=== PATIENT | female | born 1985 | race Caucasian/White ===

== ENCOUNTER → 2018-06-10 | Outpatient (CLI) | payer OTHER | END | disposition home or self-care (01) | LOC: C.LABSPEC 17:43 | PROVIDERS: ATTEND Obstetrics & Gynecology | DX: Z34.93 Encounter for supervision of normal pregnancy, unspecified, third trimester (principal); Z3A.00 Weeks of gestation of pregnancy not specified ==

== ENCOUNTER 2018-06-24 04:12 | Inpatient (IN) | payer OTHER ==
[~2018-06-24] VITALS: Ht 160 cm; Wt 74.4 kg
[2018-06-24] MEDS ORDERED: LACTATED RINGER'S 1000ML 1,000 ML IV PRN (04:33)
[2018-06-24] MEDS ORDERED: MISOPROSTOLTAB 50 MCG TAB PO ONE (04:45)
[2018-06-24] MEDS ORDERED: PENICILLIN G POTASSIUM IV 6 MU in DEXTROSE 5% 250ML 250 ML IV ONE (04:45)
[2018-06-24 05:02] LABS: HEMOGLOBIN 11.5 g/dL (12.0-16.0); MEAN CORPUSCULAR HEMOGLOBIN 28.3 pg (25-34); MEAN CORPUSCULAR HGB CONC 32.9 g/dl (32-36); MEAN PLATELET VOLUME 11.5 fL (7.4-10.4); PLATELET COUNT 251 K/uL (130-400); RED CELL DISTRIBUTION WIDTH CV 14.4 % (11.5-14.5); RED CELL DISTRIBUTION WIDTH SD 44.9 fL (36.4-46.3); WHITE BLOOD COUNT 9.91 K/uL (4.8-10.8)
[2018-06-24] MEDS: LACTATED RINGER'S 1000ML 1,000 ML IV SCH ×2 (05:13→12:18)
[2018-06-24] MEDS ORDERED: PRENTAB26 PO (05:31)
[2018-06-24 05:38] VITALS: Ht 160 cm; Wt 74.4 kg
[2018-06-24] MEDS: PENICILLIN G POTASSIUM IV 3 MU in DEXTROSE 5% 100ML 100 ML IV PRN ×3 (09:23→17:37)
[2018-06-24] MEDS ORDERED: BUPIVACAINE 0.25% 30 ML VIAL ONE (11:24)
[2018-06-24] MEDS ORDERED: EpHEDrine SULFATE INJ 50 MG/ML AMP ONE (11:25)
[2018-06-24] MEDS ORDERED: FENTANYL CITRATE INJ 50 MCG/1 ML 2 ML VIAL ONE (11:25)
[2018-06-24] MEDS ORDERED: FENTANYL 2MCG/ML ROPIV 1.25MG/ML 100ML BAG ONE (11:26)
[2018-06-24] MEDS ORDERED: LACTATED RINGER'S 1000ML 500 ML IV PRN ×2 (12:12→14:01)
[2018-06-24] MEDS ORDERED: FENTANYL 2MCG/ML ROPIV 1.25MG/ML 100ML BAG EPI PRN (12:15)
[2018-06-24] MEDS ORDERED: NALOXONE HCL INJ 0.4 MG/1 ML VIAL/CARP IV PRN (12:15)
[2018-06-24] MEDS ORDERED: EpHEDrine SULFATE INJ 50 MG/ML AMP IV PRN (12:15)
[2018-06-24] MEDS ORDERED: OXYTOCIN 30 UNITS/500ML NSS IV PRN ×2 (14:15→18:45)
[2018-06-24] MEDS ORDERED: SUPERCREAM 0.870 % 15GM JAR EXT PRN (18:45)
[2018-06-24] MEDS ORDERED: MEASLES, MUMPS & RUBELLA VIRUS VIAL SQ. ONE (18:45)
[2018-06-24] MEDS ORDERED: ACETAMINOPHEN 325 MG TAB PO PRN (18:45)
[2018-06-24] MEDS ORDERED: DIPHTHERIA/TETANUS/PERTUSSIS 0.5 ML SYR/VIAL IM. ONE (18:45)
[2018-06-24] MEDS ORDERED: BENZOCAINE 20% AER SPR 82.5 GM CAN EXT PRN (18:45)
[2018-06-24] MEDS ORDERED: HYDROCORTISONE ACETATE 25 MG SUPP PR PRN (18:45)
[2018-06-24] MEDS ORDERED: LANOLIN OINT EXT PRN (18:45)
[2018-06-24] MEDS ORDERED: OXYCODONE/ACETAMINOPHEN 5-325 TAB PO PRN (18:45)
[2018-06-24] MEDS ORDERED: VARICELLA VIRUS VACCINE LIVE 1 VIAL SQ. ONE (18:45)
--- NOTE | 2018-06-24 19:32 | Anesthesia Procedure Note ---
Anesthesia Epidural Removal Nt Date & Time Jun 24, 2018 at 19:32 Vital Signs Pain Intensity: 0.0 Notes Mental Status: alert / awake / arousable, participated in evaluation Nausea / Vomiting: adequately controlled Pain: adequately controlled Airway Patency, RR, SpO2: stable & adequate BP & HR: stable & adequate Hydration State: stable & adequate Neuraxial Anesthesia: was administered Anesthetic Complications: no major complications apparent, pt satisfied with anesthetic care Epidural: removed without complications, with tip intact
[2018-06-24] MEDS: DOCUSATE SODIUM 100 MG CAP PO SCH (20:00)
--- NOTE | 2018-06-24 21:29 | DELIVERY SUMMARY ---
DATE OF OPERATION: 06/24/2018 The patient is a 33-year-old 2 para 0-0-1 white female who presented at 38 weeks with ruptured membranes and no labor. She received 50 mcg Cytotec orally. She then started to have regular contractions. She requested epidural analgesia and Pitocin augmentation was begun after the epidural was effective as her ctns had begun to space out. She progressed to full dilation and pushed effectively for delivery of a viable female . The mouth and nasopharynx were suctioned after delivery; loose nuchal cord was reduced after the head was delivered. The rest of the infant delivered without complications and was placed on mother's abdomen for further attention drawing. There was spontaneous crying and the infant was moving all 4 limbs at that time. After 30-second delay, the cord was clamped and cut. The placenta was then expressed intact with a 3-vessel cord. A first degree left labial laceration was no bleeding and therefore not repaired. The rest of the perineum was intact. Bleeding was minimal at the end of the case and it was controlled with dilute Pitocin. Mother and were doing well after delivery. I attest to the content of the Intraoperative Record and any orders documented therein. Any exceptions are noted below. MTDD
[2018-06-24 21:35] VITALS: BP 119/74; PULSE 74; TEMP 36.9; O2SAT 97
[2018-06-24] MEDS: IBUPROFEN 600 MG TAB PO PRN (21:43)
[2018-06-24 23:05] VITALS: BP 109/67; PULSE 54; TEMP 36.8; O2SAT 98
[2018-06-25 03:10] VITALS: BP 113/74; PULSE 56; TEMP 36.7; O2SAT 98
[2018-06-25 05:52] LABS: HEMATOCRIT 33.6 % (37-47); HEMOGLOBIN 11.1 g/dL (12.0-16.0)
--- NOTE | 2018-06-25 07:05 | Progress Note ---
Subjective Jun 25, 2018. Subjective Comment: conversation w/ patient, physical exam Ambulation: ambulating normally Voiding: no voiding problems Passing Gas: Yes Diet Tolerance: Regular Diet no n/v Lochia: Moderate Feeding Type: Breast Feeding Pain: Improving /10 Review of Systems Constitutional: No fever, No chills, No sweats Respiratory: No cough, No sputum, No wheezing Cardiac: No chest pain, No palpitations Abdomen: No pain, No nausea, No vomiting, No diarrhea Female : No dysuria Objective Vital Signs Date Time Temp Pulse Resp B/P (MAP) Pulse Ox O2 Delivery O2 Flow Rate FiO2 06/25/18 03:10 36.7 56 16 113/74 (87) 98 Room Air 06/24/18 23:05 36.8 54 16 109/67 (81) 98 Room Air 06/24/18 21:35 36.9 74 18 119/74 (89) 97 Room Air 06/24/18 21:35 97 Room Air Physical Exam General Appearance: WELL-APPEARING, NO APPARENT DISTRESS Respiratory/Chest: chest non-tender, normal breath sounds Cardiovascular: regular rate, rhythm Abdomen: normal bowel sounds Fundus: Firm, Relation to Umbilicus (below) Extremities: normal range of motion, no calf tenderness Laboratory Results Last 24 Hours Test 06/25/18 05:37 Hemoglobin 11.1 g/dL Hematocrit 33.6 % Assessment and Plan Day#: 1 Continue Routine Care: Resident Physician Supervision Note: I interviewed and examined the patient. Discussed with Dr. Lemus and agree with findings and plan as documented in the note. Any exceptions or clarifications are listed here: [None] Documented By: Kina Beltran 33 yo PPD1 s/p -AFVSS, Pt doing well resting comfortably -F/U CBC HGB 11.1 from 11.5 on admission appropriate for vaginal delivery no si/ sx of anemia -Plan is to breast feed -Tolerating regular diet, no n/v -Continue to encourage ambulation -Routine care
[2018-06-25] MEDS: IBUPROFEN 600 MG TAB PO PRN ×3 (07:21→20:46)
[2018-06-25 07:25] VITALS: BP 118/78; PULSE 54; TEMP 36.4
[2018-06-25] MEDS: FERROUS SULFATE 325 MG TAB PO SCH (07:34)
[2018-06-25] MEDS: DOCUSATE SODIUM 100 MG CAP PO SCH ×2 (07:34→20:45)
[2018-06-25] MEDS: PRENATAL VITAMIN TAB PO SCH (07:34)
[2018-06-25 11:20] VITALS: BP 114/74; PULSE 89; TEMP 36.7
[2018-06-25 15:55] VITALS: BP 125/77; PULSE 58; TEMP 36.6
[2018-06-25] MEDS ORDERED: BISACODYL 5 MG TABEC PO SCH (20:00)
[2018-06-25 23:55] VITALS: BP 124/69; PULSE 58; TEMP 36.6; O2SAT 98; O2SAT 99
[2018-06-26] MEDS: IBUPROFEN 600 MG TAB PO PRN ×2 (04:24→08:37)
[2018-06-26 07:15] VITALS: BP 126/80; PULSE 51; TEMP 36.5
[2018-06-26 07:58] LABS: HEMATOCRIT 33.9 % (37-47); HEMOGLOBIN 11.1 g/dL (12.0-16.0); MEAN CELL VOLUME 87.6 fL (80-100); MEAN CORPUSCULAR HEMOGLOBIN 28.7 pg (25-34); MEAN CORPUSCULAR HGB CONC 32.7 g/dl (32-36); MEAN PLATELET VOLUME 10.9 fL (7.4-10.4); PLATELET COUNT 234 K/uL (130-400); RED CELL DISTRIBUTION WIDTH CV 14.9 % (11.5-14.5); WHITE BLOOD COUNT 10.07 K/uL (4.8-10.8)
[2018-06-26] MEDS: FERROUS SULFATE 325 MG TAB PO SCH (08:13)
[2018-06-26] MEDS: DOCUSATE SODIUM 100 MG CAP PO SCH (08:13)
[2018-06-26] MEDS: PRENATAL VITAMIN TAB PO SCH (08:13)
--- NOTE | 2018-06-26 08:24 | Progress Note ---
Subjective Jun 26, 2018. Subjective conversation w/ patient, physical exam Ambulation: ambulating normally Feeding Type: Breast Feeding Objective Vital Signs Date Time Temp Pulse Resp B/P (MAP) Pulse Ox O2 Delivery O2 Flow Rate FiO2 06/26/18 07:15 36.5 51 18 126/80 (95) Room Air 06/25/18 23:55 36.6 58 18 124/69 (87) 99 Room Air 06/25/18 23:55 98 Room Air 06/25/18 20:30 Room Air 06/25/18 15:55 36.6 58 16 125/77 (93) Room Air 06/25/18 11:20 36.7 89 16 114/74 (87) Room Air Physical Exam General Appearance: WELL-APPEARING, NO APPARENT DISTRESS Fundus: Firm, Non-Tender Extremities: no calf tenderness Laboratory Results Last 24 Hours Test 06/26/18 07:42 White Blood Count 10.07 K/uL Red Blood Count 3.87 M/uL Hemoglobin 11.1 g/dL Hematocrit 33.9 % Mean Corpuscular Volume 87.6 fL Mean Corpuscular Hemoglobin 28.7 pg Mean Corpuscular Hemoglobin Concent 32.7 g/dl RDW Standard Deviation 47.0 fL RDW Coefficient of Variation 14.9 % Platelet Count 234 K/uL Mean Platelet Volume 10.9 fL Assessment and Plan Post- Day#: 2 Continue Routine Care: - doing well - desires d/c - instructions given - f/u in 6 weeks
--- NOTE | 2018-06-26 08:25 | Discharge Instructions ---
Discharge Instructions Date of Service Jun 26, 2018. Admission Reason for Admission: LABOR Discharge Discharge Diagnosis / Problem: same Discharge Goals Goal(s): Routine recovery after delivery Medications Continue Dispensed Medications: supercream, dermaplast, tucks Activity Recommendations Activity Limitations: as noted below . Instructions / Follow-Up Instructions / Follow-Up ACTIVITY RECOMMENDATIONS: * Gradual return to full activity over the next 2-3 weeks. * No lifting - nothing heavier than baby over the next 2-3 weeks. * Do not engage in vigorous exercise, sexual activity or sports until cleared by your physician. * Do not drive or operate any motorized equipment until cleared by your physician. * You may shower/bathe daily. MEDICATIONS: For discomfort or pain, you may use Acetaminophen (Tylenol), Ibuprofen (Advil), or Naproxen (Aleve) following the package directions. For constipation you may use Colace following the package directions. BREAST CARE: If you are not breast feeding: * Wear a supportive bra 24 hours a day for one to two weeks. * Avoid stimulating your breasts and nipples as much as possible during the first few weeks after delivery. * When taking a shower, have the warm water hit your back, not breasts. * When your breasts feel full, apply ice packs. Usually three to four times a day helps ease the discomfort. * Take a mild pain medication (Tylenol / Motrin) when you are uncomfortable. If breast feeding: * Use breast milk to lubricate nipples. Lansinoh cream may be used for sore nipples. You do not need to remove cream prior to breast feeding. If using a different brand of cream, check the label for directions regarding removal of cream prior to nursing. * Wear a supportive bra. * If having problems with breasts or breast feeding, call a retail consultant or your health care provider. EPISIOTOMY CARE: After delivery, if you have an episiotomy (stitches), the following steps will ease discomfort and aid healing. * For the first 24 hours after delivery, place ice packs next to your episiotomy to help reduce swelling. * After the first 24 hour-period, sitz baths, either portable or in the tub, are suggested. A shower with a shower arm sprayed over the episiotomy may be comforting. * Julianne care should be done after each voiding and bowel movement. Squirt warm water from a plastic bottle over the perineum (region of the body between the anus and urinary opening) and pat dry. * Use Dermoplast to ease discomfort. Shake container. [place] directly over the episiotomy. Place a Tucks on a clean sanitary pad next to your episiotomy. SPECIAL CARE INSTRUCTIONS: When you are discharged from the hospital, it is important for you to follow the instructions listed below: * During the first week at home, you should be able to care for yourself and your baby. In addition, the usual light household activities are encouraged. * Limit your activities to the way you feel. Do not try to clean the house or move furniture. Be sensible. * If you actively engage in sports and have done so up until the time of your delivery, you may resume these activities as soon as you feel able. This may take up to one month or even longer. Use good judgment. * Continue to take your vitamins for at least six weeks after the of your baby. * Your diet need not be limited unless you were on a special diet before your delivery. Breast-feeding mothers need around 2500 calories per day and at least 64-80 ounces of fluid per day (8 to 10 glasses). * You should eat foods from the four major food groups. Crash diets or fad diets are to be avoided. Eating lean meats, fresh fruits and vegetables, low-fat dairy products, high fiber foods and a regular exercise program, will help you get back to your pre- weight without putting your health at risk. * Constipation is sometimes a problem after delivery. Take a mild laxative as needed. If breast feeding, Milk of Magnesia is acceptable to use. You may use a suppository or Fleets enema if no episiotomy. * A daily shower or tub bath is suggested. Be sure to thoroughly and gently dry the perineum. * A bloody vaginal discharge will usually continue until around four weeks post . A small amount of bleeding may continue for as long as six weeks. Vaginal discharge changes from the bright red bleeding after delivery to pink then brownish and finally yellowish-pink before becoming white and disappearing. * Bleeding may increase with activity. Your first period may come in 4-8 weeks. If you are breast feeding, your period may be delayed even longer. * Tull (sex) can begin whenever both you and your partner feel comfortable and do not have any form of genital infection. It is recommended that you wait at least six weeks for internal and external healing to occur. If you have questions, please talk to your health care practitioner. A condom should be used to prevent infection and . * Foreplay, gentle intercourse and lubrication is very important the first several times to prevent pain. A water-based lubricant such as K-Y jelly or Astroglide may be used. * If you have RH negative blood and your baby is RH positive, you will receive RHOGAM by injection prior to discharge. The nurse will give you a card to keep with you that has the date and place that you received RHOGAM after delivery. * During your care, you had a Rubella screen done to check for the presence of rubella antibodies in your blood. If your test was negative, you will receive a Rubella vaccine prior to discharge. This vaccine may cause a fever, soreness at the injection site and flu-like symptoms. If these symptoms persist, notify your health care practitioner. is not advised for one month after a Rubella vaccine. * Verbalizes understanding of car seat law as reviewed with patient nursing. * Car Seat hand-out given and reviewed with patient by nursing. * Shaken baby information reviewed with patient by nursing. Call you doctor if: * Heavy bleeding (saturating several pads an hour) or passing clots the size of your fist. * A fever >101 degrees F (38.3 degrees C) on two occasions four hours apart and /or chills. * Unusual pain in the pelvic or vaginal areas. * "Baby Blues" lasting longer than two weeks. If you have any questions or concerns, call your health care practitioner at . FOLLOW UP VISIT: * Please call the office at to schedule a 6 week examination. It is important you keep this appointment. It is important for you to make arrangements for either yearly or twice yearly check-ups thereafter. Current Hospital Diet Patient's current hospital diet: Regular OB Diet Discharge Diet Recommended Diet: Regular Diet Pending Studies Studies pending at discharge: no Medical Emergencies . Who to Call and When: Medical Emergencies: If at any time you feel your situation is an emergency, please call 911 immediately. . Non-Emergent Contact Non-Emergency issues call your: Interventional Neuroradiologist Call Non-Emergent contact if: you have a fever, temperature is above 100.5 . . "Provider Documentation" section prepared by Felipe Quick. .
[2018-06-26 09:36] VITALS: BP_SYST 126; O2SAT 99
[2018-06-26 13:43] VITALS: BP_DIAS 80; PULSE 51; TEMP 36.5
== END 2018-06-26 15:44 | disposition home or self-care (01) | DRG 775 ==
LOC: C.OPB 04:12 → C.LD 04:14 → C.OPB 04:35 → C.LD 04:35 → C.OBG 21:38
PROVIDERS: ADMIT Obstetrics & Gynecology; ATTEND Obstetrics & Gynecology
PROC: 10E0XZZ Delivery of Products of Conception, External Approach (ICD-10-PCS; principal; 2018-06-24)
PROC: 3E0P7GC Introduction of Other Therapeutic Substance into Female Reproductive, Via Natural or Artificial Opening (ICD-10-PCS; 2018-06-24)
DX: O99.824 Streptococcus B carrier state complicating childbirth (principal); Z3A.38 38 weeks gestation of pregnancy; Z37.0 Single live birth

== ENCOUNTER 2025-01-24 07:44 | Inpatient (IN) ==
[2025-01-24] MEDS ORDERED: OXYTOCIN 30 UNITS/NSS 30 UNITS/500 ML BAG IV PRN (07:47)
[2025-01-24] MEDS ORDERED: LIDOCAINE 1% LOCAL 20 ML VIAL INFIL PRN (07:47)
[2025-01-24 08:29] LABS: Hematocrit (blood only) 36.1 % (37.0-47.0); Mean Corpuscular Hemoglobin 28.8 pg (25.0-34.0); Mean Corpuscular Hgb Conc 33.2 g/dL (32.0-36.0); Mean Corpuscular Volume 86.6 fL (80.0-100.0); Mean Platelet Volume 11.6 fL (9.4-12.4); Platelet Count 219 K/uL (130-400); RDW Coefficient of Variation 14.2 % (11.5-14.5); RDW Standard Deviation 44.7 fL (36.4-46.3); Red Blood Count 4.17 M/uL (4.20-5.40); White Blood Count 9.45 K/ul (4.8-10.8)
[2025-01-24] MEDS: PENICILLIN GK 6 MU in DEXTROSE 5% 250 ML IV STA (09:18)
[2025-01-24] MEDS: LACTATED RINGER'S 1,000 ML IV PRN (09:20)
[2025-01-24] MEDS: OXYTOCIN 30 UNITS/NSS 30 UNITS/500 ML BAG IV PRN ×2 (09:30→21:35)
--- NOTE | 2025-01-24 10:09 | History & Physical Report ---
Date of Service January 24, 2025 Assessment & Plan (1) Gestational diabetes: Plan: Leana is a 39-year-old G5, P3 currently at 39 weeks 3 days gestational age presents for induction of labor secondary to history of precipitous delivery. 1. Fetus: Category 1 tracing 2. Labor: Will start with oxytocin per regular protocol and will plan for rupture membranes when completed on penicillin 3. GBS positive penicillin per protocol 4. GDM diet controlled. Will evaluate with initial glucose and will add additional if indicated 5. Vitals within normal limits (2) Group B streptococcal infection during : (3) Elderly multigravida: (4) Hypothyroid in , antepartum: Admission and Anticipated Discharge Date Admission Date: January 24, 2025 History of Present Illness Primary Care Provider: Bruce Martinez DO Leana is a 39-year-old G5, P3 currently at 39 weeks 4 days gestational age presents for induction of labor secondary to history of precipitous delivery. and Delivery Plans Hypothyroid *Check TFTs Q4wks AMA Weekly NST's @ 36 weeks Hep B non-immune Left Ovarian Mass *Recheck at Anatomy *Referral to Dr. Flores -Remains stable in size and imaging favoring dermoid -Removal by Dr. Flores PP in February Migraines *refer to clinic Gestational Diabetes Growth u/s's q 4 weeks GBS Positive *Treat in Labor Hx Precip last baby OB Labs: Blood Type A Positive 08/08/24 Antibody Screen NEGATIVE 08/08/24 Hgb 12.5 g/dl (12.0-16.0) 11/10/24 Hct 37.4 % (37.0-47.0) 11/10/24 MCV 83.9 fL (80.0-100.0) 08/08/24 Plt Count 359 K/uL (130-400) 08/08/24 Rubella IgG Antibody Immune (Immune) 08/08/24 RPR Nonreactive (Nonreactive) 05/01/19 Treponema pallidum Ab Negative (Negative) 11/10/24 Hep Bs Antigen Negative (Negative) 08/08/24 Hepatitis C Antibody Negative (Negative) 08/08/24 HIV 1&2 Ab/P24 Ag 4thGn Negative (Negative) 08/08/24 Glucose 1 Hr 50 gm 150 mg/dl (70-130) H 09/05/24 OB Optional Labs: Chlamydia trachomatis RNA Not Detected (NotDetected) 08/08/24 Neisseria gonorrhoeae RNA Not Detected (NotDetected) 08/08/24 Thyroid Stimulating Hormone (TSH) 2.440 uIu/ml (0.300-4.500) 11/10/24 Allergies Allergy/AdvReac Type Severity Reaction Status Date / Time methylprednisolone AdvReac Severe Anxiety Verified 01/23/25 09:20 [From Medrol] Home Medications Medication Instructions Recorded Confirmed Type blood sugar diagnostic (OneTouch #150 ea 12/28/24 01/23/25 Rx Verio test strips) blood-glucose meter (OneTouch #1 ea 12/28/24 01/23/25 Rx Verio Reflect Meter) lancets 33 gauge (OneTouch Delica #150 ea 12/28/24 01/23/25 Rx Plus Lancet) levothyroxine 88 mcg tablet 88 mcg PO DAILY 01/24/25 01/24/25 History vits no.124-ferrous fum 1 tab PO HS 01/24/25 01/24/25 History 27 mg iron-folic acid 800 mcg tablet ( Vitamin) Patient History Medical History Insomnia GERD (gastroesophageal reflux disease) Globus sensation Anxiety Migraine without aura Neck pain Rebound headache TMJ (temporomandibular joint disorder) Post-traumatic headache Paresthesia Ataxia GERD (gastroesophageal reflux disease) Migraine Anxiety H/O varicella H/O chlamydia infection History of miscarriage Thyroid disease in Surgical History S/P wisdom tooth extraction S/P dilation and curettage Family History Other Adopted Social History Smoking Status: Never smoker Second Hand Exposure: No; Do You Dip or Chew Tobacco: No; Hx Alcohol Use: No Hx Substance Use: No Preferred Language: Japanese Communication Ability: Effective Visual Impairment: No Limitations Hearing Ability: Normal Traffic Officer Required: No Beliefs That Will Affect Care: None marital status: marital status details: Bridger Fabien Bridger (32) [phone] Current Living Situation: Family and Significant Other Current Living Situation Comment: Boyfriend and 3 kids current occupational status: employed 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 [employer] How many Children do You have: 3 Other Information That Helps Us Care for You: No Feels Safe at Home: Yes Safety Concerns: Feels Safe At This Time Childhood Exposure to Second-Hand Smoke: No Diet: regular Diet Comment: regular caffeine: Yes during the past year weight has: increased > 10 lbs Dental Care, Regularly: Yes Physical Activity Frequency: Daily Seatbelt Use: always Sunscreen Use: Yes Assistive Devices: None Physical Exam Genitourinary: normal external appearance Manual OB Exam: + cervical dilation 1 cm, + cervical effacement 30% and + station high OB Exam Monitor Tracing: + external FHT monitor used, + external uterine monitor used, + category I and + normal FHT variability Results & Data Vital Signs (Past 12 Hours) Vital Signs Pulse BP 01/24/25 07:57 81 117/72 Coding Level of Care Code None Diagnoses Diet controlled gestational diabetes mellitus (GDM) in third trimester O24.410 Gestational diabetes mellitus control: diet-controlled Trimester: third trimester Group B streptococcal infection during O98.819; B95.1 Multigravida of advanced maternal age in third trimester O09.523 Trimester: third trimester Hypothyroid in , antepartum O99.280; E03.9 (1) Gestational diabetes Gestational diabetes mellitus control: diet-controlled Trimester: third trimester Qualified Code(s): O24.410 - Gestational diabetes mellitus in , diet controlled (3) Elderly multigravida Trimester: third trimester Qualified Code(s): O09.523 - Supervision of elderly multigravida, third trimester
[2025-01-24] MEDS ORDERED: NALOXONE HCL 0.4 MG/1 ML VIAL/CARP IV PRN (13:24)
[2025-01-24] MEDS ORDERED: LIDOCAINE 2% MPF LOCAL 5 ML VIAL EPI PRN (13:24)
[2025-01-24] MEDS ORDERED: NALOXONE HCL 1 MG in SODIUM CHLORIDE 0.9% 1,000 ML IV PRN (13:24)
[2025-01-24] MEDS ORDERED: ePHEDrine sulfate 50 MG/ML AMP IV PRN (13:24)
[2025-01-24] MEDS ORDERED: NALBUPHINE HCL INJ 10 MG/ML AMP IV PRN (13:24)
[2025-01-24] MEDS ORDERED: SODIUM CHLORIDE 0.9% PF INJ 10 ML VIAL EPI PRN (13:24)
[2025-01-24] MEDS ORDERED: fentANYL 2 MCG/ML BUPIVacaine 0.125%-NSS 100ML BAG EPI PRN (13:24)
[2025-01-24] MEDS ORDERED: diphenhydrAMINE 50 MG/ML VIAL IV PRN (13:24)
[2025-01-24] MEDS ORDERED: BUPIVACAINE 0.25% PF 30 ML VIAL EPI PRN (13:24)
[2025-01-24] MEDS ORDERED: ROPIVACAINE 0.5% PF 5 MG/ML 20 ML VIAL EPI PRN (13:24)
[2025-01-24] MEDS ORDERED: fentaNYL citrate PF 100 MCG/2 ML VIAL EPI PRN (13:24)
--- NOTE | 2025-01-24 13:26 | Anesthesiology Consultation ---
Date of Service January 24, 2025 Assessment & Plan Chart Review Chart Review: Patient NOT seen in Pre Admission Testing and Acceptable Risk for Labor Epidural Consults Requested none ASA ASA2 Proposed Anesthesia Anesthesia Type: Labor Epidural Risk / Benefits Reviewed With: PT / POA / Parent / Guardian, Accepts Plan and Informed Consent Obtained History Height/Weight Height: 5 ft 3 in Weight: 67.132 kg Allergies Allergy/AdvReac Type Severity Reaction Status Date / Time methylprednisolone AdvReac Severe Anxiety Verified 01/23/25 09:20 [From Medrol] Medications Home Medications Medication Instructions Recorded Confirmed Last Taken blood sugar diagnostic (OneTouch #150 ea 12/28/24 01/23/25 Unknown Verio test strips) blood-glucose meter (OneTouch #1 ea 12/28/24 01/23/25 Unknown Verio Reflect Meter) lancets 33 gauge (OneTouch Delica #150 ea 12/28/24 01/23/25 Unknown Plus Lancet) levothyroxine 88 mcg tablet 88 mcg PO DAILY 01/24/25 01/24/25 01/24/25 vits no.124-ferrous fum 1 tab PO HS 01/24/25 01/24/25 1 Day Ago 27 mg iron-folic acid 800 mcg ~01/23/25 tablet ( Vitamin) Active Medications Generic Name Dose Route Start Last Admin Trade Name Mitesh PRN Reason Stop Dose Admin Lactated Ringer's 1,000 mls @ 125 mls/hr 01/24/25 07:47 01/24/25 13:30 Lr IV 01/25/25 07:46 125 mls/hr .Q8H PRN Administration L&D Protocol Protocol Oxytocin 30 units in 500 mls @ 9 mls/hr 01/24/25 07:47 01/24/25 12:01 Pitocin 30 Units/Nss IV 01/26/25 07:46 0.54 units/hr .Q24H PRN 9 mls/hr Labor Induction/Augmentation Titration Protocol 0.54 UNITS/HR Penicillin G Potassium 3 mu/ 106 mls @ 100 mls/hr 01/24/25 10:47 01/24/25 13:30 Dextrose IV 02/03/25 10:46 100 mls/hr Q4H PRN Administration GBS(+) Until Delivery NPO Date Last Intake of Fluids: 01/24/25 Time Last Intake of Fluids: 13:00 Date Last Intake of Solids: 01/24/25 Time Last Intake of Solids: 07:00 Past Medical History Medical History Insomnia GERD (gastroesophageal reflux disease) Globus sensation Anxiety Neck pain Rebound headache TMJ (temporomandibular joint disorder) Post-traumatic headache Paresthesia Ataxia GERD (gastroesophageal reflux disease) Migraine Anxiety H/O varicella H/O chlamydia infection History of miscarriage Thyroid disease in Exercise / Class Metabolic Activity 1 > 8 Run/Swim/Ski/Tennis Past Family History Family History Other Adopted Past Surgical History Surgical History S/P wisdom tooth extraction S/P dilation and curettage Past Anesthesia History No Hx of Anesthesia Complications and No Family Hx of Anesthesia Complications History of PONV No Hx of PONV and No Hx of Motion Sickness Social History Smoking Status: Never smoker Do You Dip or Chew Tobacco: No Hx Alcohol Use: No Hx Substance Use: No substance use type: does not use Review of Systems ROS Unobtainable: All systems reviewed & are unremarkable except as noted in HPI & below Physical Exam Vital Signs Last Vital Signs Temp 36.8 C 01/24/25 12:01 Pulse 63 01/24/25 12:09 Resp 16 01/24/25 12:01 BP 106/75 01/24/25 12:09 ENMT Mouth: no TMJ abnormality Thyromental Distance: > or= 3.5 Finger Breadths Mallampati Class: II Neck normal visual inspection and trachea midline; neck extension not limited Respiratory normal respiratory effort Auscultation: lungs clear to auscultation bilaterally Cardiovascular Rate/Rhythm: regular rate and regular rhythm Heart Sounds: no murmur Musculoskeletal Spine: normal cervical ROM Extremities: full ROM of extremities Neurologic moves all extremities Psychiatric Orientation: alert and oriented x 3 Testing Laboratory Results 01/24/25 08:07 01/24/25 09:40 POC Glucose 98
[2025-01-24] MEDS: PENICILLIN GK 3 MU in DEXTROSE 5% 100 ML IV PRN (13:30)
[2025-01-24] MEDS: fentANYL 2 MCG/ML BUPIVacaine 0.125%-NSS 100ML BAG ONE (13:47)
[2025-01-24] MEDS: BUPIVACAINE 0.25% PF 30 ML VIAL ONE (13:51)
[2025-01-24] MEDS: SODIUM CHLORIDE 0.9% PF INJ 10 ML VIAL ONE (13:51)
[2025-01-24] MEDS ORDERED: ONDANSETRON INJ 2 MG/ML 2 ML VIAL IV PRN (15:35)
[2025-01-24] MEDS: fentaNYL citrate PF 100 MCG/2 ML VIAL EPI STA (16:24)
[2025-01-24] MEDS: SODIUM CHLORIDE 0.9% PF INJ 10 ML VIAL EPI STA (16:24)
[2025-01-24] MEDS: BUPIVACAINE 0.25% PF 30 ML VIAL EPI STA (16:24)
[2025-01-24] MEDS: LIDOCAINE 2%/EPINEPHRINE 1:200,000 20 ML PF EPI STA (16:24)
[2025-01-24] MEDS: LIDOCAINE 2%/EPINEPHRINE 1:200,000 20 ML PF ONE (16:25)
[2025-01-24] MEDS: fentaNYL citrate PF 100 MCG/2 ML VIAL ONE (16:25)
--- NOTE | 2025-01-24 21:15 | Delivery Summary ---
Vaginal Delivery Summary Date of Service January 24, 2025 Vaginal Delivery Summary Patient precipitously progressed to 10 cm dilated 100% effaced, +2 station pressure intact perineum with epidural anesthesia and delivered a viable with weight and Apgars pending. Head the delivered without difficulty quickly followed by shoulders and body. was noted be vigorous soon after delivery and 1 minute delayed cord clamping was initiated. Cord then double clamped and remained vigorous. Cord blood obtained tension turned deliver the placenta was delivered intact three-vessel cord gentle cord traction. Inspection of perineum, vagina and cervix note no clear lacerations or heavy bleeding were noted. Bleeding was was noted initially be normal for post delivery timeframe. 800 mcg of Cytotec were placed per rectum and oxytocin run per protocol. Approximately, 15 minutes after delivery and shortly after initially leaving the room, patient was noted to have heavy bleeding and an extensive evaluation was performed. She was immediately given a dose of Methergine. A sweep of the uterine cavity noted no retained products. Excellent fundal uterine tone noted although there was intermittent lower uterine segment atony. The bladder was drained with minimal urine output noted. We attempted to place a Idalia device although due to degree of uterine tone we were not able to place it into the uterus. Inspection of the cervix notable for suspected bleeding from the right aspect of the cervix although no clear source could be identified due to poor visualization. We opted to move to the OR so that we can improve visualization and anesthesia and backup OB was called to help manage care. Please see the operative report for additional details on the OR procedure [facility] Vaginal Delivery Charge Delivery Type Details:
[2025-01-24] MEDS ORDERED: BENZOCAINE 20% SPRY 85 APPLN/85 GM CAN EXT PRN (21:16)
[2025-01-24] MEDS ORDERED: bisacodyL 10 MG SUPP PR PRN (21:16)
[2025-01-24] MEDS ORDERED: HYDROCORTISONE ACETATE 25 MG SUPP PR PRN (21:16)
[2025-01-24] MEDS: METHYLERGONOVINE MALEATE 0.2 MG/ML AMP IM STA (21:20)
[2025-01-24] MEDS ORDERED: ONDANSETRON INJ 2 MG/ML 2 ML VIAL ONE (21:36)
--- NOTE | 2025-01-24 21:37 | Communication Note ---
Date of Service: January 24, 2025 Patient delivered healthy baby however OB concerned for cervical tear and need for repair in OR. Will plan to use epidural for anesthesia. Patient also co nsented for sedation and GA. ASA2E.
[2025-01-24] MEDS ORDERED: LIDOCAINE 2%/EPINEPHRINE 1:200,000 20 ML PF ONE (21:43)
[2025-01-24] MEDS ORDERED: DexMEDEtomidine HCL IV 100 MCG/ML VIAL IV ONE ×2 (21:43→22:05)
[2025-01-24] MEDS ORDERED: SODIUM CHLORIDE 0.9% 100 ML IV PRN ×3 (21:48→22:38)
[2025-01-24] MEDS: miSOPROStoL 200 MCG TAB PR ONE ×2 (21:53→23:32)
[2025-01-24] MEDS: ePHEDrine sulfate 50 MG/ML AMP ONE (22:17)
[2025-01-24 22:21] LABS: Basophils # (auto) 0.03 K/uL (0.00-0.20); Basophils % (auto) 0.2 %; Eosinophils # (auto) 0.04 K/uL (0.00-0.50); Eosinophils % (auto) 0.3 %; Hematocrit (blood only) 31.2 % (37.0-47.0); Hemoglobin 10.4 g/dl (12.0-16.0); Immature Granulocytes # (auto) 0.16 K/uL (0.01-0.20); Immature Granulocytes % (auto) 1.1 %; Lymphocytes # (auto) 2.89 K/uL (1.20-3.40); Lymphocytes % (auto) 19.7 %; Mean Corpuscular Hemoglobin 29.8 pg (25.0-34.0); Mean Corpuscular Hgb Conc 33.3 g/dL (32.0-36.0); Mean Corpuscular Volume 89.4 fL (80.0-100.0); Mean Platelet Volume 11.8 fL (9.4-12.4); Monocytes # (auto) 0.54 K/uL (0.11-0.59); Monocytes % (auto) 3.7 %; Neutrophils # (auto) 11.01 K/uL (1.40-6.50); Platelet Count 201 K/uL (130-400); RDW Coefficient of Variation 14.4 % (11.5-14.5); RDW Standard Deviation 46.6 fL (36.4-46.3); Red Blood Count 3.49 M/uL (4.20-5.40); White Blood Count 14.67 K/ul (4.8-10.8)
[2025-01-24] MEDS ORDERED: PROMETHAZINE HCL INJ 25 MG/ML 1 ML VIAL ONE (22:25)
[2025-01-24 22:27] LABS: Partial Thromboplastin Ratio 1.2; Partial Thromboplastin Time 32 Seconds (21-31); Prothrombin Time 10.7 Seconds (9.0-12.0)
[2025-01-24] MEDS ORDERED: ePHEDrine sulfate 50 MG/5 ML SYR ONE (22:39)
[2025-01-24] MEDS ORDERED: CALCIUM CHLORIDE 10% 10 ML SYR IV ONE ×2 (22:39→23:53)
[2025-01-24] MEDS ORDERED: PHENYLEPHRINE HCL 10 MG/ML VIAL ONE (22:39)
[2025-01-24] MEDS ORDERED: ETOMIDATE 2 MG/ML 20 ML VIAL IV ONE (23:01)
[2025-01-24] MEDS ORDERED: PROPOFOL IV EMULSION 10 MG/ML 20 ML VIAL IV ONE (23:01)
[2025-01-24] MEDS ORDERED: SUCCINYLCHOLINE CHLORIDE 20 MG/ML 10 ML VIAL IV ONE (23:01)
[2025-01-24] MEDS ORDERED: LIDOCAINE 2% 20 MG/ML 5 ML SYR IV ONE (23:03)
[2025-01-24] MEDS ORDERED: fentaNYL citrate PF 100 MCG/2 ML VIAL ONE (23:04)
[2025-01-24] MEDS ORDERED: ESMOLOL HCL INJ 10 MG/ML 10ML VIAL IV ONE (23:05)
[2025-01-24] MEDS ORDERED: VASOPRESSIN 20 UNIT/ML VIAL ONE (23:11)
[2025-01-24] MEDS ORDERED: MIDAZOLAM HCL 1 MG/ML 2ML VIAL ONE (23:19)
[2025-01-24] MEDS: miSOPROStoL 200 MCG TAB ONE (23:31)
[2025-01-24] MEDS: METHYLERGONOVINE MALEATE 0.2 MG/ML AMP IM ONE (23:32)
[2025-01-24 23:53] LABS: Hematocrit (blood only) 22.3 % (37.0-47.0); Hemoglobin 7.5 g/dl (12.0-16.0); Mean Corpuscular Hgb Conc 33.6 g/dL (32.0-36.0); Mean Corpuscular Volume 89.2 fL (80.0-100.0); Platelet Count 140 K/uL (130-400); RDW Standard Deviation 45.6 fL (36.4-46.3); White Blood Count 27.25 K/ul (4.8-10.8)
[2025-01-24] MEDS ORDERED: DEXAMETHASONE SOD INJ 4 MG/ML VIAL ONE ×2 (23:59)
[2025-01-25 00:03] LABS: BUN Creatinine Ratio 14.3 (10-20); Calcium 6.9 mg/dl (8.6-10.3); Creatinine Clr Calc Pharmacy 110.3 ml/min; Potassium 4.2 mmol/L (3.5-5.1)
[2025-01-25] MEDS ORDERED: MoRPHine SULFATE PF 1 MG/ML 10 ML AMP/VIAL ONE (00:06)
[2025-01-25] MEDS ORDERED: NALBUPHINE HCL INJ 10 MG/ML AMP IV PRN (00:08)
[2025-01-25] MEDS ORDERED: NALOXONE HCL 1 MG in SODIUM CHLORIDE 0.9% 1,000 ML IV PRN (00:08)
[2025-01-25] MEDS ORDERED: diphenhydrAMINE 50 MG/ML VIAL IV PRN (00:08)
[2025-01-25] MEDS ORDERED: NALOXONE HCL 0.4 MG/1 ML VIAL/CARP IV PRN (00:08)
[2025-01-25] MEDS ORDERED: ePHEDrine sulfate 50 MG/ML AMP IV PRN (00:08)
[2025-01-25] MEDS ORDERED: NALOXONE HCL 0.08 MG in SYRINGE 1.8 ML IV PRN (00:08)
[2025-01-25 00:11] LABS: Basophils # (auto) 0.07 K/uL (0.00-0.20); Basophils % (auto) 0.3 %; Echinocytes 1+; Eosinophils # (auto) 0.04 K/uL (0.00-0.50); Eosinophils % (auto) 0.1 %; Immature Granulocytes # (auto) 0.87 K/uL (0.01-0.20); Immature Granulocytes % (auto) 3.2 %; Lymphocytes # (auto) 3.41 K/uL (1.20-3.40); Lymphocytes % (auto) 12.5 %; Monocytes # (auto) 1.57 K/uL (0.11-0.59); Monocytes % (auto) 5.8 %; Neutrophils # (auto) 21.29 K/uL (1.40-6.50); Neutrophils % (auto) 78.1 %; Polychromasia 1+; Toxic Granulation 1+
[2025-01-25] MEDS ORDERED: DC INTRASPINAL MORPHINE SCH (00:15)
[2025-01-25] MEDS ORDERED: NO NARCOTICS OR SEDATIVES SCH (00:15)
[2025-01-25] MEDS ORDERED: MIDAZOLAM HCL 1 MG/ML 2ML VIAL ONE (00:17)
--- NOTE | 2025-01-25 00:27 | Anesthesia Procedure Note ---
Anesthesia Procedure Note Arterial Line Note Date of procedure: 01/24/25 Consent: Risk / Benefits Reviewed With: Emergency Monitors attached: Blood Pressure, CO2 and EKG Oxygen delivery method: ETT Premedication: General anesthesia Laterality: Left Location: Radial Hand hygeine: Alcohol based hand rub Equipment/Supplies: Cap, Mask and Sterile gloves Skin prep: Duraprep Ultrasound used: Yes US equipment and supplies: Sterile Gel Attempts: 1 Post-Procedure: Pt hemodynamically stable, Pt tolerates well and No complication Central Line Note Date of procedure: 01/24/25 Indication: Central intravenous access Consent: Risk / Benefits Reviewed With: Emergency Monitors attached: Blood Pressure, CO2, EKG and Pulse Oximetry Oxygen delivery method: ETT Premedication: General anesthesia Laterality: Right Location: Internal Jugular Surgical Prep: Hand hygeine: Alcohol based hand rub Equipment/Supplies: Cap, Mask, Sterile gown, Sterile gloves, Sterile drapes and Sterile procedures used Skin prep: Duraprep Ultrasound Guidance: Ultrasound used: Yes US equipment and supplies: Sterile Gel and Sterile Probe Cover Central line lumen: Triple Catheter sutured at: CM (16) Attempts: 1 Post-Procedure: Pt hemodynamically stable, Pt tolerates well and No complication
[2025-01-25] MEDS ORDERED: ROCURONIUM BROMIDE 10 MG/ML 5 ML VIAL IV ONE ×2 (00:44)
[2025-01-25 00:49] LABS: INR 1.5 (0.9-1.1); Partial Thromboplastin Ratio 2.2; Partial Thromboplastin Time 59 Seconds (21-31); Prothrombin Time 16.1 Seconds (9.0-12.0)
--- NOTE | 2025-01-25 01:13 | Anesthesia Procedure Note ---
Date of Service January 25, 2025 Anesthesia Post Epidural Note Vital Signs Vital Signs: Temp Pulse Resp BP Pulse Ox 36.8 C 67 18 121/61 100 01/24/25 19:15 01/24/25 21:23 01/24/25 19:15 01/24/25 21:23 01/24/25 20:55 Pain Intensity Abdomen: Pain Intensity: 4 Notes Mental Status: alert / awake / arousable and participated in evaluation Nausea / Vomiting: adequately controlled Pain: adequately controlled Airway Patency, RR, SpO2: stable & adequate BP & HR: stable & adequate Hydration State: stable & adequate Neuraxial Anesthesia: was administered and sensory block is resolving Anesthetic Complications: no major complications apparent Epidural: Removed without complications and With tip intact
--- NOTE | 2025-01-25 01:18 | Anesthesiology Progress Note ---
Date of Service January 25, 2025 Anesthesia Post Procedure Vital Signs Vital Signs: Temp Pulse Resp BP Pulse Ox 01/24/25 21:23 67 01/24/25 21:23 121/61 01/24/25 21:17 70 01/24/25 21:17 118/58 L 01/24/25 20:55 100 01/24/25 20:55 69 01/24/25 20:53 62 01/24/25 20:53 133/71 01/24/25 20:45 63 01/24/25 20:45 128/75 01/24/25 20:41 93 01/24/25 20:41 109 H 01/24/25 20:38 68 01/24/25 20:38 110/58 L 01/24/25 20:25 96 01/24/25 20:25 64 01/24/25 20:25 55 L 01/24/25 20:25 101/63 01/24/25 20:10 56 L 01/24/25 20:10 108/65 01/24/25 19:54 99 01/24/25 19:54 52 L 01/24/25 19:54 109/61 01/24/25 19:40 56 L 01/24/25 19:40 123/70 01/24/25 19:24 97 01/24/25 19:24 56 L 01/24/25 19:24 102/58 L 01/24/25 19:15 36.8 C 18 01/24/25 19:09 75 01/24/25 19:09 84/53 L 01/24/25 18:54 98 01/24/25 18:54 60 01/24/25 18:53 68 01/24/25 18:53 84/54 L 01/24/25 18:39 55 L 01/24/25 18:39 94/53 L 01/24/25 18:38 92 01/24/25 18:38 88 01/24/25 18:29 91 01/24/25 18:29 61 01/24/25 18:24 100 01/24/25 18:24 73 01/24/25 18:23 91 01/24/25 18:23 80 01/24/25 18:23 115/66 01/24/25 18:08 62 01/24/25 18:08 112/64 01/24/25 18:00 36.8 C 01/24/25 17:54 99 01/24/25 17:54 57 L 01/24/25 17:53 74 01/24/25 17:53 100/66 01/24/25 17:22 100 01/24/25 17:22 54 L 01/24/25 17:20 54 L 01/24/25 17:20 119/65 01/24/25 17:05 74 01/24/25 17:05 101/66 01/24/25 17:03 92 01/24/25 17:03 70 01/24/25 16:54 100 01/24/25 16:54 59 L 01/24/25 16:50 50 L 01/24/25 16:50 105/64 01/24/25 16:35 63 01/24/25 16:35 107/67 01/24/25 16:31 36.5 C 01/24/25 16:20 52 L 01/24/25 16:20 119/68 01/24/25 16:05 50 L 01/24/25 16:05 102/65 01/24/25 15:53 100 01/24/25 15:53 51 L 01/24/25 15:50 71 01/24/25 15:50 102/66 01/24/25 15:48 99 01/24/25 15:48 56 L 01/24/25 15:43 100 01/24/25 15:43 53 L 01/24/25 15:38 100 01/24/25 15:38 58 L 01/24/25 15:35 61 01/24/25 15:35 101/64 01/24/25 15:33 100 01/24/25 15:33 53 L 01/24/25 15:28 99 01/24/25 15:28 86 01/24/25 15:23 98 01/24/25 15:23 72 01/24/25 15:20 65 01/24/25 15:20 94/58 L 01/24/25 15:18 98 01/24/25 15:18 53 L 01/24/25 15:13 98 01/24/25 15:13 62 01/24/25 15:08 99 01/24/25 15:08 57 L 01/24/25 15:07 60 01/24/25 15:07 93/57 L 01/24/25 15:03 100 01/24/25 15:03 53 L 01/24/25 14:58 100 01/24/25 14:58 65 01/24/25 14:53 100 01/24/25 14:53 74 01/24/25 14:51 59 L 01/24/25 14:51 99/61 L 01/24/25 14:48 100 01/24/25 14:48 57 L 01/24/25 14:43 98 01/24/25 14:43 61 01/24/25 14:38 99 01/24/25 14:38 53 L 01/24/25 14:35 51 L 01/24/25 14:35 110/62 01/24/25 14:33 99 01/24/25 14:33 94 H 01/24/25 14:28 98 01/24/25 14:28 51 L 01/24/25 14:23 99 01/24/25 14:23 104 H 01/24/25 14:20 57 L 01/24/25 14:20 106/63 01/24/25 14:18 99 01/24/25 14:18 77 01/24/25 14:13 100 01/24/25 14:13 51 L 01/24/25 14:08 100 01/24/25 14:08 53 L 01/24/25 14:05 56 L 01/24/25 14:05 106/61 01/24/25 14:03 99 01/24/25 14:03 59 L 01/24/25 14:02 56 L 01/24/25 14:02 107/62 01/24/25 14:00 17 01/24/25 14:00 17 01/24/25 13:59 58 L 01/24/25 13:59 112/66 01/24/25 13:58 98 01/24/25 13:58 60 01/24/25 13:56 36.7 C 01/24/25 13:56 59 L 01/24/25 13:56 110/63 01/24/25 13:55 18 01/24/25 13:55 18 01/24/25 13:53 98 01/24/25 13:53 77 01/24/25 13:52 63 01/24/25 13:52 104/65 03/19/25 13:50 18 01/24/25 13:50 18 01/24/25 13:50 57 L 01/24/25 13:50 115/60 01/24/25 13:48 98 01/24/25 13:48 58 L 01/24/25 13:48 109/67 01/24/25 13:46 61 01/24/25 13:46 117/70 01/24/25 13:45 60 01/24/25 13:45 120/75 01/24/25 13:44 53 L 01/24/25 13:44 126/72 01/24/25 13:43 100 01/24/25 13:43 60 01/24/25 13:38 100 01/24/25 13:38 66 01/24/25 12:09 63 01/24/25 12:09 106/75 01/24/25 12:01 16 01/24/25 12:01 36.8 C 16 01/24/25 11:09 64 01/24/25 11:09 110/75 01/24/25 10:33 59 L 01/24/25 10:33 104/75 01/24/25 07:59 36.6 C 17 01/24/25 07:57 81 117/72 Pain Intensity Abdomen: Pain Intensity: 4 Transfer of Care Handoff Completed per policy Notes Mental Status: see notes below Patient Amnestic to Procedure: Yes Nausea / Vomiting: see Notes below Pain: see Notes below Airway Patency, RR, SpO2: see Notes below BP & HR: see Notes below Neuraxial Anesthesia: sensory block is resolving Anesthetic Complications: no major complications apparent and see Notes below Notes: Patient transported to OR for repair of suspected cervical laceration which was initially planned using epidural anesthesia. profound and continuous bleeding in OR with hemodynamic instability resulted in conversion to open hysterectomy in L&D suite due to patient being unstable for transport to OR. Patient intubated and converted to GA. A-line and RIJ central line placed for further monitoring and access. Massive transfusion called for which patient received 6 u RBC and 2 units FFP. Total volume administered 5200 cc intraop. Suspected 3860 cc EBL. Due to large fluid shift, patient kept intubated and transported to ICU. Cryo and FFP became available at end of procedure and were taken to icu with patient. Patient off pressors and intubated and HDS at sign out with BP 119/81. Pt tachy 120s-130s suspected due to low intravascular volume or light anesthesia.
[2025-01-25] MEDS ORDERED: SODIUM CHLORIDE 0.9% 100 ML IV PRN ×4 (01:37→18:05)
[2025-01-25] MEDS ORDERED: STAT IV Infusion **Titration per Protocol STA ×2 (01:39→03:15)
[2025-01-25 01:41] LABS: Fibrinogen 72 mg/dl (184-400)
--- NOTE | 2025-01-25 01:49 | Critical Care Consultation ---
Date of Consultation January 25, 2025 Assessment & Plan (1) Hemorrhagic shock: (2) On mechanically assisted ventilation: (3) Metabolic acidosis: Plan Reason Critically Ill: 39 YOF s/p with cervical tear requirng emergent hysterectomy and oopherctomy- she is to the ICU for hemorrhagic shock and continued resuscitation. She is intubated and mechancially ventilated. Neuro - Sedation for mechanical ventilation CAM ICU: GARETH - PAZ goal -1 to -2- Fentanyl infusion and propofol infusion - Was reported with normal neurological exam prior to induction and SENSITIZER- currently pharmacologically paralyzed Cardiac - Hemorrhagic shock, - s/p > 3L reported blood loss - currently has received 5L crystalloid - 6 u PRBC, 1 FFP, 1 cryo, 2 GM CACL - Will continue with blood transfusion with goal to get back to a 1:1:1 ratio or at least a 2:1:1 ratio - CBC now, lactate, now, bmp now- eval for organ dysfunction - coags also pending at this time, but noted D- Dimer > 01924 and Fibrinogen 72 - Will need close monitoring- We do not have TEG here so will guide therapies on INR, HGB, Fibrinogen and PLT counts - Maintain normothermia, reverse acidosis - SBP 90-100 as to protect hemostasis at this time Respiratory - Mechanically ventilated post surgical - Remains intubated secondary to hemorrhagic shock and needing continued resuscitation- CXR reviewed postoperatively - without opacities or evidence of overload - ETT advanced 1 cm - ARDSnet ventilation strategy GI - No acute needs - stomach was decompressed post operatively and OG was removed- replace now and keep decompressed while intubated RENAL/LYTES - Metabolic acidosis, - Likley secondary to hemorrhage- as above - compensate as we can from respiratory status- bicarb if needed - No acute needs - Murray to gravity draining dilute yellow urine ENDO - Gestational Diabetes - should now be resolved however- ICU hyper/hypoglycemic protocol HEME - Hemorrhagic shock, - As above continue with product infusion for 1:1:1 ratio - Platlets low secondary to consumption- transfuse 1 6pack/unit of Platelets now - INR 1.2- replace clotting factors with FFP in setting of 6 units PRBC and 5L crystalloid and continued oozing at lines - Calcium replace with another 1GM CACL ID - Group B streptococcal infection during - At this time no concern for septic shock or acute infective process LINES/IV ACCESS - CVL RT IJ, Russell LT Radial, ETT, OGT, Murray Continue use of these lines DVT PROPHYLAXIS - SCDS, hold on chemoprophylaxis at this time until coagulopathy is reversed as well as hemostasis is ensured DISPO: ICU while undergoing hemorrhagic shock resuscitation and proven hemodynamically stable I have personally spent 60 minutes of critical care time in the direct management of this patient. This is a life/limb threatening event. This includes time spent evaluating patient, direct bedside care, chart review, placing orders, interpretation of diagnostic studies, discussion with consultants, patient, and family members, as well as other required patient management activities. This time is exclusive of all separately billable procedures, and teaching time and separate from and in addition to any other critical care service time. Thank you for allowing us to participate in the care of this patient. Please refer to my attending physician's documentation for any further recommendations. Supervising Physician Co-Signing Physician Notes I have personally evaluated and examined this patient. I agree with assessment and plan of Arlene CARDENAS. Discussed with Dr. Miller. No obvious clinical blood loss, no oozing at IV sites, I believe we are close to adequate blood component and volume resuscitation. Patient was able to be extubated. Having some subjective neuro vision changes which are slowly improving. We have been able to wean off vasoactives, if patient remains clinically stable after extubation for couple of hours I would anticipate she should be able to downgrade out of the ICU to facilitate time with the infant. I have personally spent 45 minutes of critical care time in the direct management of this patient. This is a life/limb threatening event. This includ es time spent evaluating patient, direct bedside care, chart review, placing orders, interpretation of diagnostic studies, discussion with consultants, patient, and/or family members regarding treatment decisions, as well as other required patient management activities. This time is exclusive of all separately billable procedures, and teaching time and separate from and in addition to any other critical care service time. Clinical update 1230: Reviewed repeat labs H&H mildly downtrending however there is no evidence of hemodynamic compromise. Borderline low blood pressure however clinically easily arousable. Nursing had mild concern of possibly increase abdominal distention, physical exam patient has hypoactive bowel sounds mild tenderness near incision line which is to be expected, when I had the patient moved to examine her flanks I noticed she likely has a rectus diastases which is likely the origin of the mildly more protrude Ronal abdomen, there is no tympany to suggest ileus. Certainly in the differential would be ongoing intra- abdominal hemorrhage; however, I do not believe this to be the case we will continue to trend H&H. Accordingly I feel the patient is stable for downgrade out of ICU and will discuss this case with Dr. Springer History of Present Illness Reason for Consultation: hemorrhagic shock Requesting Physician: Brian Miller MD Attending Physician: Brian Miller MD History of Present Illness 39 YOF s/p 01/24/25 patient was noted with hemorrhage and concern for cervical tear for which she was taken to the OR urgently where she had hysterectomy performed and oophorectomy (patient had previous oophorectomy secondary to mass in past). Patient was with reported blood loss >3L, she received 6 units of PRBC 2 units of FFP, 1 dose of cryo, and 2 GM CACL and ~5L cyrstalloid. She had central line and arterial line placed in the operating room. Patient was brought to the ICU postoperatively. She is currently not on vasoactive medications. She will need continued resuscitation likely. Will aim to get her back on a 1:1:1 ratio with hemorrhage. She is noted with fibrinogen 72 and Ddimer > 49644. Cryo given on arrival to the ICU. Will obtain acid base evaluation on arrival and CXR on arrival. CODE: FULL Allergies Allergy/AdvReac Type Severity Reaction Status Date / Time methylprednisolone AdvReac Severe Anxiety Verified 01/23/25 09:20 [From Medrol] Home Medications Medication Instructions Recorded Confirmed Type blood sugar diagnostic (OneTouch #150 ea 12/28/24 01/23/25 Rx Verio test strips) blood-glucose meter (OneTouch #1 ea 12/28/24 01/23/25 Rx Verio Reflect Meter) lancets 33 gauge (OneTouch Delica #150 ea 12/28/24 01/23/25 Rx Plus Lancet) levothyroxine 88 mcg tablet 88 mcg PO DAILY 01/24/25 01/24/25 History vits no.124-ferrous fum 1 tab PO HS 01/24/25 01/24/25 History 27 mg iron-folic acid 800 mcg tablet ( Vitamin) Patient History Medical History Insomnia GERD (gastroesophageal reflux disease) Globus sensation Anxiety Neck pain Rebound headache TMJ (temporomandibular joint disorder) Post-traumatic headache Paresthesia Ataxia GERD (gastroesophageal reflux disease) Migraine Anxiety H/O varicella H/O chlamydia infection History of miscarriage Thyroid disease in Surgical History S/P wisdom tooth extraction S/P dilation and curettage Family History Other Adopted Social History Smoking Status: Never smoker Second Hand Exposure: No; Do You Dip or Chew Tobacco: No; Hx Alcohol Use: No Hx Substance Use: No Preferred Language: [place] Communication Ability: Effective Visual Impairment: No Limitations Hearing Ability: Normal Japanese Professor Required: No Beliefs That Will Affect Care: None marital status: marital status details: Bridger Sparks (32) [phone] Current Living Situation: Family and Significant Other Current Living Situation Comment: Boyfriend and 3 kids current occupational status: employed 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 [employer] How many Children do You have: 3 Other Information That Helps Us Care for You: No Feels Safe at Home: Yes Safety Concerns: Feels Safe At This Time Childhood Exposure to Second-Hand Smoke: No Diet: regular Diet Comment: regular caffeine: Yes during the past year weight has: increased > 10 lbs Dental Care, Regularly: Yes Physical Activity Frequency: Daily Seatbelt Use: always Sunscreen Use: Yes Assistive Devices: None Review of Systems Review of Systems: unable to perform secondary to intubation and sedation Physical Exam Physical Exam: PHYSICAL EXAM: Neuro: Intubated and sedated, pharmacologically paralyzed prior to transport Chest: equal rise and fall of the chest, advance ETT 1CM. Cardiac: Regular rate and rhythm, telemetry reviewed- sinus tachycardia no ectopy, skin cool and dry, cap refill ~3 seconds, peripheral pulses +2 no JVD, no murmur, no edema GI: NABS x 4 quadrants, soft, not distended : murray to gravity, draining dilute yellow urine Skin: no rash or erythema Results & Data Results & Data Vital Signs (Past 12 Hours) Vital Signs Temp Pulse Resp BP Pulse Ox 01/24/25 21:23 67 01/24/25 21:23 121/61 01/24/25 21:17 70 01/24/25 21:17 118/58 L 01/24/25 20:55 100 01/24/25 20:55 69 01/24/25 20:53 62 01/24/25 20:53 133/71 01/24/25 20:45 63 01/24/25 20:45 128/75 01/24/25 20:41 93 01/24/25 20:41 109 H 01/24/25 20:38 68 01/24/25 20:38 110/58 L 01/24/25 20:25 96 01/24/25 20:25 64 01/24/25 20:25 55 L 01/24/25 20:25 101/63 01/24/25 20:10 56 L 01/24/25 20:10 108/65 01/24/25 19:54 99 01/24/25 19:54 52 L 01/24/25 19:54 109/61 01/24/25 19:40 56 L 01/24/25 19:40 123/70 01/24/25 19:24 97 01/24/25 19:24 56 L 01/24/25 19:24 102/58 L 01/24/25 19:15 36.8 C 18 01/24/25 19:09 75 01/24/25 19:09 84/53 L 01/24/25 18:54 98 01/24/25 18:54 60 01/24/25 18:53 68 01/24/25 18:53 84/54 L 01/24/25 18:39 55 L 01/24/25 18:39 94/53 L 01/24/25 18:38 92 01/24/25 18:38 88 01/24/25 18:29 91 01/24/25 18:29 61 01/24/25 18:24 100 01/24/25 18:24 73 01/24/25 18:23 91 01/24/25 18:23 80 01/24/25 18:23 115/66 01/24/25 18:08 62 01/24/25 18:08 112/64 01/24/25 18:00 36.8 C 01/24/25 17:54 99 01/24/25 17:54 57 L 01/24/25 17:53 74 01/24/25 17:53 100/66 01/24/25 17:22 100 01/24/25 17:22 54 L 01/24/25 17:20 54 L 01/24/25 17:20 119/65 01/24/25 17:05 74 01/24/25 17:05 101/66 01/24/25 17:03 92 01/24/25 17:03 70 01/24/25 16:54 100 01/24/25 16:54 59 L 01/24/25 16:50 50 L 01/24/25 16:50 105/64 01/24/25 16:35 63 01/24/25 16:35 107/67 01/24/25 16:31 36.5 C 01/24/25 16:20 52 L 01/24/25 16:20 119/68 01/24/25 16:05 50 L 01/24/25 16:05 102/65 01/24/25 15:53 100 01/24/25 15:53 51 L 01/24/25 15:50 71 01/24/25 15:50 102/66 01/24/25 15:48 99 01/24/25 15:48 56 L 01/24/25 15:43 100 01/24/25 15:43 53 L 01/24/25 15:38 100 01/24/25 15:38 58 L 01/24/25 15:35 61 01/24/25 15:35 101/64 01/24/25 15:33 100 01/24/25 15:33 53 L 01/24/25 15:28 99 01/24/25 15:28 86 01/24/25 15:23 98 01/24/25 15:23 72 01/24/25 15:20 65 01/24/25 15:20 94/58 L 01/24/25 15:18 98 01/24/25 15:18 53 L 01/24/25 15:13 98 01/24/25 15:13 62 01/24/25 15:08 99 01/24/25 15:08 57 L 01/24/25 15:07 60 01/24/25 15:07 93/57 L 01/24/25 15:03 100 01/24/25 15:03 53 L 01/24/25 14:58 100 01/24/25 14:58 65 01/24/25 14:53 100 01/24/25 14:53 74 01/24/25 14:51 59 L 01/24/25 14:51 99/61 L 01/24/25 14:48 100 01/24/25 14:48 57 L 01/24/25 14:43 98 01/24/25 14:43 61 01/24/25 14:38 99 01/24/25 14:38 53 L 01/24/25 14:35 51 L 01/24/25 14:35 110/62 01/24/25 14:33 99 01/24/25 14:33 94 H 01/24/25 14:28 98 01/24/25 14:28 51 L 01/24/25 14:23 99 01/24/25 14:23 104 H 01/24/25 14:20 57 L 01/24/25 14:20 106/63 01/24/25 14:18 99 01/24/25 14:18 77 01/24/25 14:13 100 01/24/25 14:13 51 L 01/24/25 14:08 100 01/24/25 14:08 53 L 01/24/25 14:05 56 L 01/24/25 14:05 106/61 01/24/25 14:03 99 01/24/25 14:03 59 L 01/24/25 14:02 56 L 01/24/25 14:02 107/62 01/24/25 14:00 17 01/24/25 14:00 17 01/24/25 13:59 58 L 01/24/25 13:59 112/66 01/24/25 13:58 98 01/24/25 13:58 60 01/24/25 13:56 36.7 C 01/24/25 13:56 59 L 01/24/25 13:56 110/63 01/24/25 13:55 18 01/24/25 13:55 18 01/24/25 13:53 98 01/24/25 13:53 77 01/24/25 13:52 63 01/24/25 13:52 104/65 01/24/25 13:50 18 01/24/25 13:50 18 01/24/25 13:50 57 L 01/24/25 13:50 115/60 Coding Level of Care Code 22551 CRITICAL CARE 1ST 30-74M Additional Critical Care Time Additional 30min Critical Care Time: Yes - 20886 Diagnoses Hemorrhagic shock R57.8 On mechanically assisted ventilation Z99.11 Metabolic acidosis E87.20 Additional Codes Critical Care Time - Additional 30min Critical Care Time: Yes - 84037 ([id number])
[2025-01-25 01:51] LABS: D Dimer > 35200 ug/L FEU (0-500)
--- NOTE | 2025-01-25 01:55 | Post Operative Brief Note ---
Immediate Post Op Note Date of Surgery January 25, 2025 Pre & Post Diagnosis Operation Date: 01/24/25 22:15 Preoperative diagnosis: hemorrhage, suspected high cervical laceration, lower uterine segment atony, left ovarian cyst Postoperative diagnosis: hemorrhage, cervical/lower uterine segment laceration, right broad ligament hematoma from suspected uterine vessel laceration, left ovarian cyst I identified the patient and participated in the time-out.: Yes Procedure Operation Date: 01/24/25 22:15 abdominal supracervical hysterectomy, bilateral salpingectomy, left oophorectomy, cystoscopy Surgeon Brian Miller MD [place] Supervisor Dr. Tianna Springer Quantitative Blood Loss (QBL) 3890 Findings Consistent with Post-Op Diagnosis Specimens Specimen Description: 1. uterus 2. Right fallopian tube 3. Left ovary and fallopian tube Drains Delaney Catheter (placed by physician in OR) PROFESSOR OF FLORICULTURE Major Procedure Codes Hysterectomy 15662 Open Supra Hyster Laparotomy/Laparoscopic 80823 Open/LAP SO Miscellaneous 42958 Cystoscopy
[2025-01-25] MEDS: propofoL 1,000 MG/100 ML VIAL IV SCH (01:57)
[2025-01-25] MEDS: fentaNYL citrate 2,500 MCG/250 ML BAG IV SCH (01:57)
--- NOTE | 2025-01-25 02:02 | Operative Report ---
PG Post Operative Report Pre & Post Diagnosis Operation Date: 01/24/25 22:15 Preoperative diagnosis: hemorrhage, suspected high cervical laceration, lower uterine segment atony, left ovarian cyst Postoperative diagnosis: hemorrhage, cervical/lower uterine segment laceration, right broad ligament hematoma from uterine vessel laceration, left ovarian cyst I identified the patient and participated in the time-out.: Yes Procedure Operation Date: 01/24/25 22:15 abdominal supracervical hysterectomy, bilateral salpingectomy, left oophorectomy, cystoscopy Surgeon Brian Miller MD Segregator Dr. Tianna Springer Estimated Blood Loss 3,860 (QBL) Findings Consistent with Post-Op Diagnosis Specimens Uterus, right fallopian tube and left ovary and fallopian tube Description of Procedure Please see vaginal delivery summary for information on vaginal delivery and initial evaluation of the bleeding. patient taken to the L&D OR due to suspected cervical laceration for better visualization and repair. Anesthesia present and assisting in care of patient upon presenting to the OR. OB backup call provider arrived shortly after arriving to the OR to assist in care. Patient evaluated for the cervical laceration with aid of retractors for better visualization. Visualization was difficult although there appeared to be bleeding coming from the right aspect of the mid cervix. The area that the bleeding appeared to be coming from was ligated with 0 Vicryl in a continuous running locked stitch. After the stitch was complete bleeding appeared to improved significantly and decreased to a level that would be consistent with normal post blood loss. We monitored the patient in the OR for an additional 30 minutes and bleeding throughout that time was consistent with expectations in the immediate post delivery timeframe. Shortly thereafter patient was noted to have a increase in bleeding and reevaluation was performed and during evaluation bleeding markedly increased. Uterine tone was still noted to be firm with intermittent lower uterine segment atony. Bleeding appeared to be coming from the right aspect of the cervix although distinct location could not be determined. Decision was made to proceed with a exploratory laparotomy. Patient was verbally consented for exploratory laparotomy and expected hysterectomy. Patient had planned for a hysterectomy with bilateral salpingectomy and left oophorectomy which was scheduled for shortly after recovering from her course. Patient was intubated and a Betadine splash was performed. Patient was quickly draped and a stat exploratory laparotomy performed. Upon entry into the abdomen there was noted to be a fairly large right broad ligament hematoma extending to mid bladder and in the retroperitoneal space of the right pelvis. We suspected a uterine vessel laceration and a hysterectomy was initiated. A LigaSure was used to aid in the hysterectomy and the right utero-ovarian vessel identified cauterized and dissected we continued down the right side with continued dissection with the LigaSure taking the round ligament, transecting the right tube and right broad ligament. The right broad ligament was then opened and a bladder flap created. There was noted to be bleeding from the right uterine vessels suspected be right uterine vein which was cauterized with the LigaSure with significant improved bleeding but not full resolution of bleeding noted. The left utero-ovarian ligament, left round ligament and left fallopian tube was then serially cauterized and dissected. The right broad ligament was then serially cauterized and dissected and the bladder flap continued connecting to to the right side bladder flap. The bladder was noted to be quite distal to the lower uterine segment/cervix at the level of transection and the left uterine vessels were serially cauterized and dissected. Evaluation for the bladder and location of the cervix was then performed and a super cervical hysterectomy was performed with transection across the lower uterine segment/cervix with the LigaSure. Once the bulk of the uterus was removed we were better able to visualize the location of the cervix in relation to the right uterine vessels. Palpating inside of the cervix and right lower uterine segment there was noted to be a laceration that was approximately 2 cm cephalad to the distal cervix extending up to the right lower uterine segment we were able to dissect the right peritoneum and bladder off from the right side down to the level that the laceration and then cauterized and transected the right uterine vessels just inferior to the noted laceration and bleeding markedly improved. We serially cauterized and transected the cephalad portion of the cervix and lower uterine segment directly across from the laceration over to the left lower uterine segment/cervix transecting an additional portion of the cervix and lower uterine segment which was sent with the uterine specimen to pathology. On reinspection of the cervix and pelvis at that time bleeding was noted to be markedly improved with only very small areas of light oozing noted we removed the left tube and ovary as previously planned for her upcoming surgery due to the left ovarian cyst. The right fallopian tube was also removed. On inspection of the pelvis bleeding was noted to be markedly improved. A continuous running lock stitch was performed on the posterior aspect of the cervix/cuff as there is minor bleeding noted on the posterior aspect which resulted in significant improvement. The cervix/cuff was approximated with 0 Vicryl in continuous running locked stitch and excellent hemostasis noted. We reinspected all vascular pedicles and pelvic structures and no active bleeding noted. We continue to monitor for additional 30 to 40 minutes and performed a cystoscopy during that time which was notable for bilateral ureteral jet and intact bladder . There was noted to be no bleeding from the vagina or distal cervix on exam. After the cystoscopy we reevaluated all pelvic structures and vascular pedicles and good hemostasis was still noted and Tisseel was placed over all vascular pedicles and pelvic structures. The subcutaneous fascial and muscle layers were inspected and hemostasis noted. The fascia was reapproximated with 0 Vicryl continuous running stitch. Subcutaneous layer was reapproximated in 2 layers with 2-0 plain. The skin was reapproximated with 3-0 Vicryl in a continuous subcuticular stitch. A compression dressing placed on top and patient taken to ICU intubated for close monitoring. I attest to the content of the Intraoperative Record and any orders documented therein. Any exceptions are noted below. [employer] Major Procedure Codes Hysterectomy 61328 Open Supra Hyster Laparotomy/Laparoscopic 08997 Open/LAP SO Miscellaneous 64294 Cystoscopy
--- NOTE | 2025-01-25 02:08 | XRay Report ---
EXAM: XR KUB/Abdomen 1 view CLINICAL HISTORY: emergent surgery, unable to count TECHNIQUE: X-ray images of the abdomen were obtained in supine and upright positions. COMPARISON: 10/19/2024 MR, 07/28/2024 US reviewed FINDINGS: Gas Pattern: Fecal loading is identified in ascending and transverse colon. Gastric shadow is prominent. A few prominent/mildly dilated small bowel loops are noted in the central abdomen. Soft Tissues: Soft tissues of the abdomen appear normal without evidence of masses or calcifications. The liver, spleen, and kidneys are of normal size and position. A linear line is projecting over the center upper abdomen, likely spine stimulator. IMPRESSION: Fecal loading in ascending and transverse colon. Gastric shadow is prominent. A few prominent/mildly dilated small bowel loops noted in the central abdomen. The possibility of subacute bowel obstruction could not be ruled out. Needs a CT scan for further evaluation. Electronically signed by Yo Brcue 01-25-2025 02:08 AM
[2025-01-25 02:16] LABS: Hematocrit (blood only) 38.5 % (37.0-47.0); Hemoglobin 13.1 g/dl (12.0-16.0); Mean Corpuscular Hemoglobin 29.2 pg (25.0-34.0); Mean Corpuscular Volume 85.9 fL (80.0-100.0); Mean Platelet Volume 10.6 fL (9.4-12.4); Platelet Count 78 K/uL (130-400); RDW Coefficient of Variation 14.2 % (11.5-14.5); RDW Standard Deviation 44.4 fL (36.4-46.3); Red Blood Count 4.48 M/uL (4.20-5.40); White Blood Count 27.46 K/ul (4.8-10.8)
--- NOTE | 2025-01-25 02:28 | XRay Report ---
EXAM: XR chest 1V portable CLINICAL HISTORY: Eval ETT/Lines/lung escobar. TECHNIQUE: An X-ray image of the chest is obtained in AP projection. COMPARISON: No prior studies are available for comparison. FINDINGS: The endotracheal tube is seen in situ with its distal tip 4.2 cm above the debbi. A right central venous catheter is seen in situ with its distal tip at the cavoatrial junction. Pulmonary Parenchyma: Prominent perihilar broncho vascular markings. No evidence of consolidation, collapse, or focal opacities. No pulmonary nodules are identified. No evidence of pleural effusion or pleural thickening. Mild tenting of left hemidiaphragm. Heart and Mediastinum: Heart size and shape are normal. No mediastinal widening or masses. Bony Thorax: The bony thorax appears intact without fractures or deformities. Soft Tissues: Radiodense nodules are seen in the soft tissues along the left lateral chest wall/breast. Overlying chest leads are seen. IMPRESSION: 1. The endotracheal tube is seen in situ with its distal tip 4.2 cm above the debbi. 2. A right central venous catheter is seen in situ with its distal tip at the cavoatrial junction. 3. No evidence of consolidation, collapse, or pleural effusion. 4. Radiodense nodules are seen in the soft tissues along the left lateral chest wall/breast. Clinical correlation is suggested. Electronically signed by Yo Bruce 01-25-2025 02:27 AM
[2025-01-25 02:31] LABS: INR 1.2 (0.9-1.1); Prothrombin Time 12.8 Seconds (9.0-12.0)
[2025-01-25 02:40] LABS: Basophils # (auto) 0.08 K/uL (0.00-0.20); Basophils % (auto) 0.3 %; Echinocytes 1+; Eosinophils # (auto) 0.01 K/uL (0.00-0.50); Immature Granulocytes # (auto) 0.91 K/uL (0.01-0.20); Immature Granulocytes % (auto) 3.3 %; Lymphocytes # (auto) 0.94 K/uL (1.20-3.40); Lymphocytes % (auto) 3.4 %; Monocytes # (auto) 1.22 K/uL (0.11-0.59); Monocytes % (auto) 4.4 %; Neutrophils % (auto) 88.6 %; Polychromasia 1+
[2025-01-25] MEDS: CALCIUM CHLORIDE 10% 1,000 MG in DEXTROSE 5% 50 ML IV STA (03:07)
[2025-01-25] MEDS: TISSEEL FIBRIN SEALANT 10ML TOP ONE (03:28)
[2025-01-25] MEDS: fentaNYL citrate 2,500 MCG/250 ML BAG IV ONE (03:30)
[2025-01-25] MEDS: PROPOFOL IV EMULSION 10 MG/ML 100 ML VIAL IV ONE (03:30)
[2025-01-25 03:32] LABS: iSTAT Art Bld Gas pCO2 Correct 32 mmHg (35-46); iSTAT Art Bld Gas pH Corrected 7.309 (7.35-7.45); iSTAT Arterial Blood Gas HCO3 16 meg/L (19-24); iSTAT Arterial Blood Gas pCO2 32 mmHg (35-46); iSTAT Arterial Blood Gas pH 7.31 (7.35-7.45); iSTAT Arterial Blood Gas pO2 181 mmHg (80-95); iSTAT Arterial Blood Gas pO2 C 181; iSTAT Carbon Dioxide 17 mmol/L (24-31); iSTAT FiO2 40 %; iSTAT Hematocrit 27 % (37-47); iSTAT Hemoglobin 9.2 g/dl (12.0-16.0); iSTAT Potassium 4.9 mmol/L (3.3-5.0); iSTAT Sample Type Arterial; iSTAT Site Art Line; iSTAT Sodium 134 mmol/L (135-144); iSTAT SpO2 100
[2025-01-25] MEDS: NOREPINEPHRINE/D5W 4 MG/250 ML PLCT IV SCH (04:35)
[2025-01-25 04:49] LABS: Hematocrit (blood only) 25.6 % (37.0-47.0); Hemoglobin 8.8 g/dl (12.0-16.0); Mean Corpuscular Hemoglobin 29.3 pg (25.0-34.0); Mean Corpuscular Hgb Conc 34.4 g/dL (32.0-36.0); Mean Corpuscular Volume 85.3 fL (80.0-100.0); Mean Platelet Volume 10.6 fL (9.4-12.4); Platelet Count 76 K/uL (130-400); RDW Coefficient of Variation 14.4 % (11.5-14.5); RDW Standard Deviation 44.6 fL (36.4-46.3); White Blood Count 18.49 K/ul (4.8-10.8)
[2025-01-25 04:58] LABS: BUN Creatinine Ratio 13.8 (10-20); Calcium 8.9 mg/dl (8.6-10.3); Creatinine Clr Calc Pharmacy 106.9 ml/min; Magnesium 1.3 mg/dl (1.7-2.4); Potassium 4.3 mmol/L (3.5-5.1)
[2025-01-25 05:03] LABS: Basophils # (auto) 0.05 K/uL (0.00-0.20); Basophils % (auto) 0.3 %; Immature Granulocytes # (auto) 0.38 K/uL (0.01-0.20); Immature Granulocytes % (auto) 2.1 %; Lymphocytes # (auto) 0.55 K/uL (1.20-3.40); Monocytes # (auto) 0.68 K/uL (0.11-0.59); Monocytes % (auto) 3.7 %; Neutrophils # (auto) 16.83 K/uL (1.40-6.50); Neutrophils % (auto) 90.9 %; Polychromasia 1+
[2025-01-25] MEDS: MAGNESIUM SULFATE / D5W 1 GM/100 ML BAG IV SCH (05:06)
[2025-01-25 05:14] LABS: INR 1.1 (0.9-1.1); Partial Thromboplastin Ratio 1.1; Partial Thromboplastin Time 29 Seconds (21-31); Prothrombin Time 11.7 Seconds (9.0-12.0)
[2025-01-25 05:33] LABS: Fibrinogen 208 mg/dl (184-400)
[2025-01-25] MEDS: fentaNYL BOLUS from BAG IV PRN (06:15)
[2025-01-25] MEDS: PROPOFOL BOLUS FROM BAG IV PRN (06:16)
[2025-01-25] MEDS: MoRPHine SULFATE PF 1 MG/ML 10 ML AMP/VIAL EPI ONE (07:01)
[2025-01-25] MEDS: TRANEXAMIC ACID / 0.7% NACL 1000MG/100ML BAG IV ONE (07:01)
[2025-01-25 07:43] LABS: Hemoglobin 7.3 g/dl (12.0-16.0); Platelet Count 76 K/uL (130-400)
[2025-01-25] MEDS: FERROUS SULFATE 325 MG TAB PO SCH (08:27)
[2025-01-25] MEDS: PRENATAL VITAMIN 1 TAB PO SCH (08:27)
[2025-01-25] MEDS: DOCUSATE SODIUM 100 MG CAP PO SCH (08:27)
[2025-01-25] MEDS ORDERED: Nursing to Pharmacy Communication SCH (08:30)
--- NOTE | 2025-01-25 09:08 | Obstetrical Progress Note ---
Date of Service January 25, 2025 Assessment & Plan (1) hemorrhage: Plan: Leana is a 39-year-old day 1 status post vaginal delivery resulting in a hemorrhage from suspected right uterine vessel laceration that is suspected to have occurred due to precipitous progression in labor and delivery. Patient being managed in the ICU and is stable and was able to be extubated this morning. Discussed Leana with the ICU attending who feels that she is progressing well and did not have any significant concerns at this time. Will continue to monitor and will plan for transfer back to OB floor per ICU recommendations. (2) Encounter for postoperative care: (3) Encounter for care and examination after delivery: Admission and Anticipated Discharge Date Admission Date: January 24, 2025 Subjective Leana is in ICU care due to acute hemorrhage resulting in supracervical hysterectomy and received multiple units of packed red cells and factors. I discussed Leana with the ICU attending who feels that she is progressing well. She was extubated while I was in the ICU and she was alert and oriented. I was able to discuss the procedure and findings at the time and answer all of her questions. She was asking to be able to see the baby today. The ICU attending feels that she may be able to come back upstairs around noon pending how she does this morning. Physical Exam Gastrointestinal (Abdomen): Incision with dressing intact Results & Data Vital Signs (Past 12 Hours) Vital Signs Temp Pulse Pulse Resp BP BP Pulse Ox 01/25/25 09:00 80 16 98 01/25/25 08:58 60 01/25/25 08:49 01/25/25 08:45 92/62 L 01/25/25 08:45 92/62 L 01/25/25 08:45 77 15 97 01/25/25 08:45 101/54 L 01/25/25 08:30 75 9 L 01/25/25 08:30 95/55 L 01/25/25 08:30 95/55 L 01/25/25 08:15 69 8 L 97 01/25/25 08:15 113/67 01/25/25 08:15 113/67 01/25/25 08:06 37.0 C 71 10 L 99 01/25/25 08:00 102/61 01/25/25 07:57 37.2 C 64 9 L 99 01/25/25 07:47 116/60 03/20/25 07:33 37.4 C 62 12 98 01/25/25 07:30 94/57 L 01/25/25 07:30 94/57 L 01/25/25 07:27 37.5 C 63 15 98 01/25/25 07:15 98/58 L 01/25/25 07:15 98/58 L 01/25/25 07:09 01/25/25 07:06 37.5 C 62 14 98 01/25/25 07:00 102/60 01/25/25 05:11 37.5 C 67 14 96/50 L 98 01/25/25 04:56 37.7 C H 67 13 105/54 L 99 01/25/25 04:42 37.7 C H 69 14 101/53 L 99 01/25/25 04:39 37.6 C H 71 14 95/49 L 99 01/25/25 04:15 93/63 L 01/25/25 04:15 93/63 L 01/25/25 04:12 37.3 C 79 13 100 01/25/25 04:00 37.3 C 72 14 97/64 L 01/25/25 03:57 37.3 C 73 13 99/52 L 100 01/25/25 03:48 37.2 C 70 17 100 01/25/25 03:45 96/62 L 01/25/25 03:40 37.1 C 73 15 99/53 L 100 01/25/25 03:30 101/65 01/25/25 03:30 101/65 01/25/25 03:30 101/65 01/25/25 03:30 101/65 01/25/25 03:24 37.0 C 73 13 100 01/25/25 03:18 36.9 C 80 12 94/53 L 100 01/25/25 03:16 01/25/25 03:16 01/25/25 03:15 93/63 L 01/25/25 03:15 93/63 L 01/25/25 03:15 93/63 L 01/25/25 03:15 93/63 L 01/25/25 03:15 93/63 L 01/25/25 03:15 93/63 L 01/25/25 03:15 36.9 C 86 11 L 01/25/25 03:15 01/25/25 03:09 01/25/25 03:00 88/65 L 01/25/25 03:00 88/65 L 01/25/25 03:00 88/65 L 01/25/25 03:00 88/65 L 01/25/25 03:00 88/65 L 01/25/25 03:00 37.0 C 86 12 01/25/25 02:49 37.1 C 107 H 17 82/59 L 99 01/25/25 02:46 106/75 01/25/25 02:46 106/75 01/25/25 02:46 106/75 01/25/25 02:46 106/75 01/25/25 02:46 106/75 01/25/25 02:45 36.7 C 125 H 16 88 L 01/25/25 02:38 36.8 C 107 H 14 93/68 L 100 01/25/25 02:31 01/25/25 02:30 36.7 C 109 H 12 01/25/25 02:30 100/80 01/25/25 02:30 100/80 01/25/25 02:30 100/80 01/25/25 02:30 100/80 01/25/25 02:30 100/80 01/25/25 02:30 108 H 23 100/80 100 01/25/25 02:16 113 H 19 100 01/25/25 02:15 118/89 01/25/25 02:15 118/89 01/25/25 02:15 115 H 22 118/89 100 01/25/25 02:00 36.8 C 122 H 20 123/97 100 01/25/25 01:55 36.8 C 116 H 19 127/94 100 01/25/25 01:52 36.8 C 120 H 19 117/88 100 01/25/25 01:45 36.6 C 18 119/85 96 01/25/25 01:35 36.8 C 18 121/101 H 96 01/24/25 21:23 67 01/24/25 21:23 121/61 01/24/25 21:17 70 01/24/25 21:17 118/58 L O2 Del Method O2 Del Method FiO2 01/25/25 09:00 01/25/25 08:58 01/25/25 08:49 Oxymask 01/25/25 08:45 01/25/25 08:45 01/25/25 08:45 01/25/25 08:45 01/25/25 08:30 01/25/25 08:30 01/25/25 08:30 01/25/25 08:15 01/25/25 08:15 01/25/25 08:15 01/25/25 08:06 01/25/25 08:00 01/25/25 07:57 01/25/25 07:47 01/25/25 07:33 01/25/25 07:30 01/25/25 07:30 01/25/25 07:27 01/25/25 07:15 01/25/25 07:15 01/25/25 07:09 40 01/25/25 07:06 01/25/25 07:00 01/25/25 05:11 01/25/25 04:56 01/25/25 04:42 01/25/25 04:39 01/25/25 04:15 01/25/25 04:15 01/25/25 04:12 01/25/25 04:00 01/25/25 03:57 01/25/25 03:48 01/25/25 03:45 01/25/25 03:40 01/25/25 03:30 01/25/25 03:30 01/25/25 03:30 01/25/25 03:30 01/25/25 03:24 01/25/25 03:18 01/25/25 03:16 Mechanical Vent 01/25/25 03:16 Mechanical Vent 01/25/25 03:15 01/25/25 03:15 01/25/25 03:15 01/25/25 03:15 01/25/25 03:15 01/25/25 03:15 01/25/25 03:15 01/25/25 03:15 Mechanical Vent 01/25/25 03:09 40 01/25/25 03:00 01/25/25 03:00 01/25/25 03:00 01/25/25 03:00 01/25/25 03:00 01/25/25 03:00 01/25/25 02:49 01/25/25 02:46 01/25/25 02:46 01/25/25 02:46 01/25/25 02:46 01/25/25 02:46 01/25/25 02:45 01/25/25 02:38 01/25/25 02:31 Mechanical Vent 40 01/25/25 02:30 01/25/25 02:30 01/25/25 02:30 01/25/25 02:30 01/25/25 02:30 01/25/25 02:30 01/25/25 02:30 Mechanical Vent 40 01/25/25 02:16 40 01/25/25 02:15 01/25/25 02:15 01/25/25 02:15 Mechanical Vent 40 01/25/25 02:00 Mechanical Vent 40 01/25/25 01:55 01/25/25 01:52 01/25/25 01:45 Room Air 01/25/25 01:35 Room Air 01/24/25 21:23 01/24/25 21:23 01/24/25 21:17 01/24/25 21:17 PG Care Time/CCT Total # of Minutes Spent Total Time Spent with Patient: Total time spent is greater than 50% in coordination of care (as documented) at patient's floor/unit and/or counseling patient: Coding Level of Care Code None Diagnoses Other immediate hemorrhage O72.1 hemorrhage type: other immediate Encounter for postoperative care Z48.89 Encounter for care and examination after delivery Z39.2 (1) hemorrhage hemorrhage type: other immediate Qualified Code(s): O72.1 - Other immediate hemorrhage
[2025-01-25] MEDS: ceFAZolin 2000MG 2,000 MG/15 ML SYR IV SCH (10:39)
[2025-01-25 11:26] LABS: Hematocrit (blood only) 19.6 % (37.0-47.0); Hemoglobin 6.9 g/dl (12.0-16.0); Platelet Count 76 K/uL (130-400)
[2025-01-25 11:38] LABS: Fibrinogen 248 mg/dl (184-400)
[2025-01-25 11:41] LABS: Partial Thromboplastin Ratio 0.9; Partial Thromboplastin Time 25 Seconds (21-31)
--- NOTE | 2025-01-25 13:34 | Obstetrical Progress Note ---
Date of Service January 25, 2025 Assessment & Plan (1) hemorrhage: Plan: Abdomen is mildly distended but remains soft and appropriately tender. Hypoactive bowel sounds noted. Pt denies lightheadedness/dizziness. Vitals are reassuring with pulse being normal, hypotensive but has been this way since extubation this AM. Is making good UOP that is clear as well. Clinically does not appear to be continuing to bleed, agree w/ ICU provider latoya. -with extent of surgery, can see postop abd distension r/t gas so could try simethicone and await passing flatus. Agree w/ remaining in ICU to continue trending H/H and close monitoring for now though. Ample time given to pt for questions, answered to apparent satisfaction Admission and Anticipated Discharge Date Admission Date: January 24, [address] Medrano - nursing had mild concern of increased abdominal distension who had performed exam and thought r/t diastasis rather than ongoing bleeding. Presented shortly after call to check on patient. Resting when I arrived but immediately aroused as I addressed her. Feels a little shaky but denies lightheadedness/dizziness. Notes abd pain that seems reasonable given events. Not passed flatus yet. Per nursing, no vaginal bleeding Physical Exam Gastrointestinal (Abdomen): abd soft, mildly distended, appropriately mildly tender just above incision. No rebound or guarding. Dressing c/d/i. Hypoactive bowel sounds in lower abdomen, normal bowel sounds in upper abdomen Genitourinary: No vag bleeding on pad Results & Data Vital Signs (Past 12 Hours) Vital Signs Temp Pulse Pulse Resp BP BP Pulse Ox 01/25/25 11:30 74 14 96 01/25/25 11:30 93/56 L 01/25/25 11:09 78 17 97 01/25/25 11:00 75/60 L 01/25/25 10:54 83 14 97 01/25/25 10:30 92/55 L 01/25/25 10:30 92/55 L 01/25/25 10:30 92/55 L 01/25/25 10:12 80 13 97 01/25/25 10:03 86 15 97 01/25/25 10:00 88/58 L 01/25/25 09:57 78 14 98 01/25/25 09:30 92/56 L 01/25/25 09:30 92/56 L 01/25/25 09:27 79 19 98 01/25/25 09:21 77 14 99 01/25/25 09:21 98/56 L 01/25/25 09:17 76 16 99/57 L 98 01/25/25 09:00 80 16 98 01/25/25 08:58 60 01/25/25 08:49 01/25/25 08:45 92/62 L 01/25/25 08:45 92/62 L 01/25/25 08:45 77 15 97 01/25/25 08:45 101/54 L 01/25/25 08:30 75 9 L 01/25/25 08:30 95/55 L 01/25/25 08:30 95/55 L 01/25/25 08:15 69 8 L 97 01/25/25 08:15 113/67 01/25/25 08:15 113/67 01/25/25 08:15 65 95 01/25/25 08:06 98.6 F 71 10 L 99 01/25/25 08:00 102/61 01/25/25 07:57 99.0 F 64 9 L 99 01/25/25 07:53 65 8 L 97 01/25/25 07:47 116/60 01/25/25 07:33 99.3 F 62 12 98 01/25/25 07:30 94/57 L 01/25/25 07:30 94/57 L 01/25/25 07:27 99.5 F 63 15 98 01/25/25 07:15 98/58 L 01/25/25 07:15 98/58 L 01/25/25 07:09 01/25/25 07:06 99.5 F 62 14 98 01/25/25 07:00 102/60 01/25/25 05:11 99.5 F 67 14 96/50 L 98 01/25/25 04:56 99.9 F H 67 13 105/54 L 99 01/25/25 04:42 99.9 F H 69 14 101/53 L 99 01/25/25 04:39 99.7 F H 71 14 95/49 L 99 01/25/25 04:15 93/63 L 01/25/25 04:15 93/63 L 01/25/25 04:12 99.1 F 79 13 100 01/25/25 04:00 99.1 F 72 14 97/64 L 01/25/25 03:57 99.1 F 73 13 99/52 L 100 01/25/25 03:48 99.0 F 70 17 100 01/25/25 03:45 96/62 L 01/25/25 03:40 98.8 F 73 15 99/53 L 100 01/25/25 03:30 101/65 01/25/25 03:30 101/65 01/25/25 03:30 101/65 01/25/25 03:30 101/65 01/25/25 03:24 98.6 F 73 13 100 01/25/25 03:18 98.4 F 80 12 94/53 L 100 01/25/25 03:16 01/25/25 03:16 01/25/25 03:15 93/63 L 01/25/25 03:15 93/63 L 01/25/25 03:15 93/63 L 01/25/25 03:15 93/63 L 01/25/25 03:15 93/63 L 01/25/25 03:15 93/63 L 01/25/25 03:15 98.4 F 86 11 L 01/25/25 03:15 01/25/25 03:09 01/25/25 03:00 88/65 L 01/25/25 03:00 88/65 L 01/25/25 03:00 88/65 L 01/25/25 03:00 88/65 L 01/25/25 03:00 88/65 L 01/25/25 03:00 98.6 F 86 12 01/25/25 02:49 98.8 F 107 H 17 82/59 L 99 01/25/25 02:46 106/75 01/25/25 02:46 106/75 01/25/25 02:46 106/75 01/25/25 02:46 106/75 01/25/25 02:46 106/75 01/25/25 02:45 98.1 F 125 H 16 88 L 01/25/25 02:38 98.2 F 107 H 14 93/68 L 100 01/25/25 02:31 01/25/25 02:30 98.1 F 109 H 12 01/25/25 02:30 100/80 01/25/25 02:30 100/80 01/25/25 02:30 100/80 01/25/25 02:30 100/80 01/25/25 02:30 100/80 01/25/25 02:30 108 H 23 100/80 100 01/25/25 02:16 113 H 19 100 01/25/25 02:15 118/89 01/25/25 02:15 118/89 01/25/25 02:15 115 H 22 118/89 100 01/25/25 02:00 98.2 F 122 H 20 123/97 100 01/25/25 01:55 98.2 F 116 H 19 127/94 100 01/25/25 01:52 98.2 F 120 H 19 117/88 100 01/25/25 01:45 97.9 F 18 119/85 96 01/25/25 01:35 98.2 F 18 121/101 H 96 O2 Del Method O2 Del Method O2 Flow Rate FiO2 01/25/25 11:30 01/25/25 11:30 01/25/25 11:09 01/25/25 11:00 01/25/25 10:54 01/25/25 10:30 01/25/25 10:30 01/25/25 10:30 01/25/25 10:12 01/25/25 10:03 01/25/25 10:00 01/25/25 09:57 01/25/25 09:30 01/25/25 09:30 01/25/25 09:27 01/25/25 09:21 01/25/25 09:21 01/25/25 09:17 Nasal Cannula 2 01/25/25 09:00 01/25/25 08:58 01/25/25 08:49 Oxymask 01/25/25 08:45 01/25/25 08:45 01/25/25 08:45 01/25/25 08:45 01/25/25 08:30 01/25/25 08:30 01/25/25 08:30 01/25/25 08:15 01/25/25 08:15 01/25/25 08:15 01/25/25 08:15 01/25/25 08:06 01/25/25 08:00 01/25/25 07:57 01/25/25 07:53 40 01/25/25 07:47 01/25/25 07:33 01/25/25 07:30 01/25/25 07:30 01/25/25 07:27 01/25/25 07:15 01/25/25 07:15 01/25/25 07:09 40 01/25/25 07:06 01/25/25 07:00 01/25/25 05:11 01/25/25 04:56 01/25/25 04:42 01/25/25 04:39 01/25/25 04:15 01/25/25 04:15 01/25/25 04:12 01/25/25 04:00 01/25/25 03:57 01/25/25 03:48 01/25/25 03:45 01/25/25 03:40 01/25/25 03:30 01/25/25 03:30 01/25/25 03:30 01/25/25 03:30 01/25/25 03:24 01/25/25 03:18 01/25/25 03:16 Mechanical Vent 01/25/25 03:16 Mechanical Vent 01/25/25 03:15 01/25/25 03:15 01/25/25 03:15 01/25/25 03:15 01/25/25 03:15 01/25/25 03:15 01/25/25 03:15 01/25/25 03:15 Mechanical Vent 01/25/25 03:09 40 01/25/25 03:00 01/25/25 03:00 01/25/25 03:00 01/25/25 03:00 01/25/25 03:00 01/25/25 03:00 01/25/25 02:49 01/25/25 02:46 01/25/25 02:46 01/25/25 02:46 01/25/25 02:46 01/25/25 02:46 01/25/25 02:45 01/25/25 02:38 01/25/25 02:31 Mechanical Vent 40 01/25/25 02:30 01/25/25 02:30 01/25/25 02:30 01/25/25 02:30 01/25/25 02:30 01/25/25 02:30 01/25/25 02:30 Mechanical Vent 40 01/25/25 02:16 40 01/25/25 02:15 01/25/25 02:15 01/25/25 02:15 Mechanical Vent 40 01/25/25 02:00 Mechanical Vent 40 01/25/25 01:55 01/25/25 01:52 01/25/25 01:45 Room Air 01/25/25 01:35 Room Air PG Care Time/CCT Total # of Minutes Spent Total Time Spent with Patient: Total time spent is greater than 50% in coordination of care (as documented) at patient's floor/unit and/or counseling patient: Coding Level of Care Code None Diagnoses Other immediate hemorrhage O72.1 hemorrhage type: other immediate (1) hemorrhage hemorrhage type: other immediate Qualified Code(s): O72.1 - Other immediate hemorrhage
[2025-01-25] MEDS: ACETAMINOPHEN 325 MG TAB PO PRN (14:59)
[2025-01-25 17:17] LABS: Hematocrit (blood only) 17.2 % (37.0-47.0); Hemoglobin 6.3 g/dl (12.0-16.0); Mean Corpuscular Hemoglobin 30.6 pg (25.0-34.0); Mean Corpuscular Hgb Conc 36.6 g/dL (32.0-36.0); Mean Corpuscular Volume 83.5 fL (80.0-100.0); Mean Platelet Volume 11.4 fL (9.4-12.4); Platelet Count 80 K/uL (130-400); RDW Coefficient of Variation 14.9 % (11.5-14.5); RDW Standard Deviation 44.7 fL (36.4-46.3); Red Blood Count 2.06 M/uL (4.20-5.40); White Blood Count 11.36 K/ul (4.8-10.8)
--- NOTE | 2025-01-25 19:20 | Communication Note ---
Date of Service: January 25, 2025 Made aware of h/h by ICU, h/h 6.3. VS still stable, clinically appears stable from earlier and abd exam is similar. She was able to sit for an hour or so w/o s/s anemia. Suspect h/h still just equilibrating rather than ongoing bleeding. I think she would benefit from additional unit as she will want to try to hold baby, blood consent reviewed and signed.
[2025-01-25] MEDS: bisacodyL 5 MG TABEC PO SCH (22:38)
[2025-01-25] MEDS: DIPHTHER/TETAN/PERTUS Vaccine (Tdap, Adol/Adult) 0.5mL IM ONE (22:52)
[2025-01-26 01:11] LABS: Hematocrit (blood only) 18.4 % (37.0-47.0); Hemoglobin 6.2 g/dl (12.0-16.0); Mean Corpuscular Hemoglobin 27.9 pg (25.0-34.0); Mean Corpuscular Hgb Conc 33.7 g/dL (32.0-36.0); Mean Corpuscular Volume 82.9 fL (80.0-100.0); Mean Platelet Volume 10.9 fL (9.4-12.4); Platelet Count 70 K/uL (130-400); RDW Standard Deviation 50.4 fL (36.4-46.3); Red Blood Count 2.22 M/uL (4.20-5.40)
[2025-01-26 01:15] LABS: Basophils # (auto) 0.01 K/uL (0.00-0.20); Basophils % (auto) 0.1 %; Immature Granulocytes # (auto) 0.11 K/uL (0.01-0.20); Lymphocytes # (auto) 1.07 K/uL (1.20-3.40); Lymphocytes % (auto) 9.8 %; Monocytes # (auto) 0.55 K/uL (0.11-0.59); Neutrophils # (auto) 9.16 K/uL (1.40-6.50); Neutrophils % (auto) 84.1 %; Polychromasia 1+
[2025-01-26] MEDS ORDERED: SODIUM CHLORIDE 0.9% 100 ML IV PRN (01:20)
[2025-01-26 05:50] LABS: Basophils # (auto) 0.01 K/uL (0.00-0.20); Basophils % (auto) 0.1 %; Hemoglobin 7.9 g/dl (12.0-16.0); Immature Granulocytes # (auto) 0.24 K/uL (0.01-0.20); Immature Granulocytes % (auto) 1.9 %; Lymphocytes # (auto) 1.06 K/uL (1.20-3.40); Lymphocytes % (auto) 8.3 %; Mean Corpuscular Hemoglobin 28.5 pg (25.0-34.0); Mean Corpuscular Hgb Conc 34.3 g/dL (32.0-36.0); Mean Platelet Volume 11.4 fL (9.4-12.4); Monocytes # (auto) 0.59 K/uL (0.11-0.59); Monocytes % (auto) 4.6 %; Neutrophils # (auto) 10.92 K/uL (1.40-6.50); Neutrophils % (auto) 85.1 %; Platelet Count 86 K/uL (130-400); RDW Coefficient of Variation 15.9 % (11.5-14.5); RDW Standard Deviation 47.6 fL (36.4-46.3); Red Blood Count 2.77 M/uL (4.20-5.40); White Blood Count 12.82 K/ul (4.8-10.8)
[2025-01-26 06:06] LABS: BUN Creatinine Ratio 11.3 (10-20); Calcium 7.4 mg/dl (8.6-10.3); Creatinine Clr Calc Pharmacy 136.8 ml/min; Magnesium 1.6 mg/dl (1.7-2.4); Potassium 3.7 mmol/L (3.5-5.1)
[2025-01-26] MEDS: CALCIUM GLUCONATE 1,000 MG/60 ML BAG IV STA (06:13)
[2025-01-26 06:17] LABS: Polychromasia 1+
--- NOTE | 2025-01-26 07:31 | Critical Care Progress Note ---
Date of Service January 26, 2025 Assessment & Plan (1) Hemorrhagic shock: (2) On mechanically assisted ventilation: (3) Metabolic acidosis: Plan Reason Critically Ill: 39 YOF s/p with cervical tear requiring emergent hysterectomy and oopherctomy- she is to the ICU for hemorrhagic shock and continued resuscitation. She is intubated and mechancially ventilated. 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 Cardiac - Hemorrhagic shock, - s/p > 3L reported blood loss - currently has received 5L crystalloid -Total 8 u PRBC, 6 FFP, 1 cryo, 1 platelet, as well as tranexamic acid - Will continue with blood transfusion with goal to get back to a 1:1:1 ratio or at least a 2:1:1 ratio in future if need be but noted D- Dimer > 11833 and Fibrinogen 72 Respiratory - -- S/p mechanically ventilated post surgical Extubated 01/25/2025 Saturating well on room air GI - No acute needs -- Suprapubic tenderness likely from surgical incision Pain management RENAL/LYTES - -- S/p metabolic acidosis Monitor BUNs/creatinine Avoid nephrotoxic medication --S/p hypocalcemia Likely transfusion related Got 2 g of calcium gluconate Corrected calcium within normal limit today - No acute needs - Delaney to gravity draining dilute yellow urine ENDO - Gestational Diabetes -- ICU hypoglycemia protocol HEME - -- Status post hemorrhagic shock Got total 8 u PRBC, 6 FFP, 1 cryo, 1 platelet, as well as tranexamic acid - As above continue with product infusion for 1:1:1 ratio ID - Group B streptococcal infection during -Continue with antibiotic --Prophylaxis VTE: IPC GI: Pantoprazole Lines: Right IJ, left radial Diet: Regular Plan: In/out: -1.4 L, urine output 3065 DC A-line as well as a central line once we have peripheral access Corrected calcium is within normal limit. No more replacement needed Potassium and magnesium is being replaced Will repeat H&H later today. If the H&H stable then okay to be downgraded to [facility] [employer] unit if they are comfortable excepting her Pain management for abdominal pain. Getting Tylenol. I think it is reasonable to resume Motrin, I will add pantoprazole to her regimen Patient at risk for Noel syndrome given hypotensive episode and massive bleed post Continue with antibiotics given group B streptococcus infection during as well as recent surgery Please note the above document was generated using voice recognition software. It may contain grammatical, syntax or spelling errors.Any formal questions or concerns about the content, text or information contained within the body of this dictation should be directly addressed to the provider for clarification. Admission and Anticipated Discharge Date Admission Date: January 24, 2025 Subjective Patient seen and examined at bedside. No acute distress, no adverse events overnight She was complaining of some suprapubic tenderness but overall she was feeling much better Her systolic blood pressure was in the 140s with MAP in the high 80s Heart rate was in the 70s Denied any nausea vomiting Appetite was fair. She was in optimistic mood Tmax 38.6 Review of Systems 2 Review of Systems: All systems reviewed & are unremarkable except as noted in Subjective Physical Exam 2 Physical Exam: Constitutional: No acute distress HEENT: EOMI, PERRLA Respiratory system: Good air entry bilaterally, no wheeze, no rhonchi, mild crackles bilateral lower lobes CVS: S1-S2 positive, no murmurs or gallops Abdomen: Soft, nontender, nondistended, positive bowel sounds x4 Extremities: +2 pulses bilaterally radialis/ dorsalis pedis, no cyanosis, no edema Neuro: Awake alert oriented x3 Psych: Normal mood and affect G/U: Positive Delaney Skin: no rashes, warm and dry Lymphatic: no cervical or axillary lymphadenopathy Results & Data Results & Data Vital Signs (Past 12 Hours) Vital Signs Temp Pulse Resp BP Pulse Ox Pulse Ox O2 Del Method 01/26/25 06:30 105/55 L 01/26/25 06:24 64 14 95 01/26/25 06:09 37.6 C H 64 16 95 01/26/25 06:00 95/54 L 01/26/25 05:01 36.7 C 71 14 97/48 L 95 01/26/25 04:19 36.8 C 71 14 93/47 L 95 01/26/25 04:00 90/45 L 01/26/25 03:19 36.7 C 72 14 90/47 L 94 01/26/25 03:00 95 01/26/25 02:54 36.8 C 03/21/25 02:49 36.8 C 72 13 93/50 L 94 01/26/25 02:45 71 12 94 01/26/25 02:34 36.8 C 75 12 94/49 L 94 01/26/25 02:30 70 12 01/26/25 02:30 93/55 L 01/26/25 02:30 93/55 L 01/26/25 02:30 93/55 L 01/26/25 02:30 93/55 L 01/26/25 02:30 93/55 L 01/26/25 02:30 93/55 L 01/26/25 02:21 72 14 94 01/26/25 02:17 36.8 C 79 16 95/47 L 95 01/26/25 02:00 66 15 97 01/26/25 02:00 106/51 L 01/26/25 02:00 106/51 L 01/26/25 02:00 106/51 L 01/26/25 02:00 106/51 L 01/26/25 02:00 106/51 L 01/26/25 02:00 106/51 L 01/26/25 02:00 106/51 L 01/26/25 02:00 106/51 L 01/26/25 01:45 67 14 97 01/26/25 01:30 105/57 L 01/26/25 01:30 105/57 L 01/26/25 01:30 105/57 L 01/26/25 01:30 105/57 L 01/26/25 01:30 105/57 L 01/26/25 01:30 105/57 L 01/26/25 01:30 105/57 L 01/26/25 01:30 105/57 L 01/26/25 01:30 105/57 L 01/26/25 01:30 105/57 L 01/26/25 01:30 105/57 L 01/26/25 01:24 67 15 95 01/26/25 01:15 73 14 95 01/26/25 01:00 66 16 99 01/26/25 01:00 105/52 L 01/26/25 01:00 105/52 L 01/26/25 01:00 105/52 L 01/26/25 01:00 105/52 L 01/26/25 01:00 105/52 L 01/26/25 01:00 105/52 L 01/26/25 01:00 105/52 L 01/26/25 01:00 105/52 L 01/26/25 00:51 75 16 96 01/26/25 00:33 72 13 94 01/26/25 00:30 98/52 L 01/26/25 00:30 98/52 L 01/26/25 00:30 98/52 L 01/26/25 00:30 98/52 L 01/26/25 00:30 98/52 L 01/26/25 00:30 98/52 L 01/26/25 00:21 73 12 95 01/26/25 00:00 36.8 C 01/26/25 00:00 96/46 L 01/26/25 00:00 96/46 L 01/26/25 00:00 96/46 L 01/26/25 00:00 96/46 L 01/26/25 00:00 96/46 L 01/26/25 00:00 96/46 L 01/26/25 00:00 96/46 L 01/26/25 00:00 96/46 L 01/26/25 00:00 96/46 L 01/26/25 00:00 70 16 95 01/26/25 00:00 66 01/25/25 23:59 66 01/25/25 23:45 80 14 96 01/25/25 23:30 94/47 L 01/25/25 23:30 94/47 L 01/25/25 23:30 94/47 L 01/25/25 23:30 94/47 L 01/25/25 23:30 94/47 L 01/25/25 23:30 94/47 L 01/25/25 23:30 94/47 L 01/25/25 23:30 94/47 L 01/25/25 23:30 94/47 L 01/25/25 23:30 94/47 L 01/25/25 23:30 94/47 L 01/25/25 23:30 94/47 L 01/25/25 23:30 94/47 L 01/25/25 23:30 94/47 L 01/25/25 23:30 94/47 L 01/25/25 23:30 94/47 L 01/25/25 23:30 94/47 L 01/25/25 23:30 69 12 95 01/25/25 23:15 70 12 94 01/25/25 23:00 94/48 L 01/25/25 23:00 94/48 L 01/25/25 23:00 69 14 95 01/25/25 22:36 65 15 95 01/25/25 22:30 101/50 L 01/25/25 22:30 101/50 L 01/25/25 22:24 74 14 94 01/25/25 22:03 71 13 94 01/25/25 22:00 105/52 L 01/25/25 22:00 105/52 L 01/25/25 21:57 71 13 94 01/25/25 21:45 73 14 95 01/25/25 21:44 38.6 C H 69 13 99/47 L 94 01/25/25 21:30 100/54 L 01/25/25 21:30 100/54 L 01/25/25 21:27 68 14 97 01/25/25 21:15 77 16 99 01/25/25 21:03 73 13 97 01/25/25 21:01 105/46 L 01/25/25 20:57 71 16 97 01/25/25 20:44 36.8 C 85 15 105/53 L 98 01/25/25 20:39 65 15 100 01/25/25 20:30 91/54 L 01/25/25 20:24 65 13 97 01/25/25 20:15 68 12 95 01/25/25 20:14 36.8 C 67 20 110/54 L 99 01/25/25 20:00 Room Air 01/25/25 20:00 95 01/25/25 20:00 69 99/47 L 01/25/25 20:00 98/54 L 01/25/25 20:00 98/54 L 01/25/25 20:00 78 13 98 01/25/25 20:00 98/54 L 01/25/25 20:00 98/54 L 01/25/25 20:00 98/54 L 01/25/25 20:00 98/54 L 01/25/25 19:59 36.8 C 69 12 98/45 L 96 01/25/25 19:54 69 16 99 01/25/25 19:50 96/56 L 01/25/25 19:50 96/56 L 01/25/25 19:50 36.8 C 96/56 L 01/25/25 19:42 68 14 98 01/25/25 19:36 36.8 C 66 14 103/46 L 97 01/25/25 19:30 93/58 L 01/25/25 19:30 93/58 L O2 Del Method 01/26/25 06:30 01/26/25 06:24 01/26/25 06:09 01/26/25 06:00 01/26/25 05:01 01/26/25 04:19 01/26/25 04:00 01/26/25 03:19 01/26/25 03:00 Room Air 01/26/25 02:54 01/26/25 02:49 01/26/25 02:45 01/26/25 02:34 01/26/25 02:30 01/26/25 02:30 01/26/25 02:30 01/26/25 02:30 01/26/25 02:30 01/26/25 02:30 01/26/25 02:30 01/26/25 02:21 01/26/25 02:17 01/26/25 02:00 01/26/25 02:00 01/26/25 02:00 01/26/25 02:00 01/26/25 02:00 01/26/25 02:00 01/26/25 02:00 01/26/25 02:00 01/26/25 02:00 01/26/25 01:45 01/26/25 01:30 01/26/25 01:30 01/26/25 01:30 01/26/25 01:30 01/26/25 01:30 01/26/25 01:30 01/26/25 01:30 01/26/25 01:30 01/26/25 01:30 01/26/25 01:30 01/26/25 01:30 01/26/25 01:24 01/26/25 01:15 01/26/25 01:00 01/26/25 01:00 01/26/25 01:00 01/26/25 01:00 01/26/25 01:00 01/26/25 01:00 01/26/25 01:00 01/26/25 01:00 01/26/25 01:00 01/26/25 00:51 01/26/25 00:33 01/26/25 00:30 01/26/25 00:30 01/26/25 00:30 01/26/25 00:30 01/26/25 00:30 01/26/25 00:30 01/26/25 00:21 01/26/25 00:00 01/26/25 00:00 01/26/25 00:00 01/26/25 00:00 01/26/25 00:00 01/26/25 00:00 01/26/25 00:00 01/26/25 00:00 01/26/25 00:00 01/26/25 00:00 01/26/25 00:00 01/26/25 00:00 01/25/25 23:59 01/25/25 23:45 01/25/25 23:30 01/25/25 23:30 01/25/25 23:30 01/25/25 23:30 01/25/25 23:30 01/25/25 23:30 01/25/25 23:30 01/25/25 23:30 01/25/25 23:30 01/25/25 23:30 01/25/25 23:30 01/25/25 23:30 01/25/25 23:30 01/25/25 23:30 01/25/25 23:30 01/25/25 23:30 01/25/25 23:30 01/25/25 23:30 01/25/25 23:15 01/25/25 23:00 01/25/25 23:00 01/25/25 23:00 01/25/25 22:36 01/25/25 22:30 01/25/25 22:30 01/25/25 22:24 01/25/25 22:03 01/25/25 22:00 01/25/25 22:00 01/25/25 21:57 01/25/25 21:45 01/25/25 21:44 01/25/25 21:30 01/25/25 21:30 01/25/25 21:27 01/25/25 21:15 01/25/25 21:03 01/25/25 21:01 01/25/25 20:57 01/25/25 20:44 01/25/25 20:39 01/25/25 20:30 01/25/25 20:24 01/25/25 20:15 01/25/25 20:14 01/25/25 20:00 01/25/25 20:00 Room Air 01/25/25 20:00 01/25/25 20:00 01/25/25 20:00 01/25/25 20:00 01/25/25 20:00 01/25/25 20:00 01/25/25 20:00 01/25/25 20:00 01/25/25 19:59 01/25/25 19:54 01/25/25 19:50 01/25/25 19:50 01/25/25 19:50 01/25/25 19:42 01/25/25 19:36 01/25/25 19:30 01/25/25 19:30 Laboratory Results 01/26/25 05:33 01/26/25 05:33 Coding Level of Care Code 15763 SUB INP/OBS CARE 3/50MIN Diagnoses Hemorrhagic shock R57.8 On mechanically assisted ventilation Z99.11 Metabolic acidosis E87.20
[2025-01-26] MEDS: MAGNESIUM SULFATE / D5W 1 GM/100 ML BAG IV SCH (07:34)
[2025-01-26] MEDS: POTASSIUM CHLORIDE / WTR 20 MEQ/100 ML PLCT IV SCH (07:34)
[2025-01-26 07:58] LABS: Albumin Level 2.5 gm/dl (3.4-5.0); Bilirubin Direct 0.1 mg/dl (0-0.2); Bilirubin,Total 0.4 mg/dl (0.2-1.0); Phosphorus 2.9 mg/dl (2.5-4.9); Total Protein 4.2 gm/dl (6.0-8.3)
[2025-01-26] MEDS: POLYETHYLENE (MIRALAX) 17 GM PACK PO SCH (08:05)
[2025-01-26] MEDS: SIMETHICONE 80 MG CHEW PO SCH (08:06)
--- NOTE | 2025-01-26 09:02 | Obstetrical Progress Note ---
Date of Service January 26, 2025 Assessment & Plan (1) Encounter for care and examination after delivery: (2) hemorrhage: hemorrhage type: other immediate Qualified Code(s): O72.1 - Other immediate hemorrhage (3) Hemorrhagic shock: Plan 39 yo s/p c/b cervical/uterine lac and subsequent supracervical hyst- LSO for PPH VSS, less hypotensive this am Abd mildly distended, more c/w gas rather than concern for continued bleeding H/H improved this am after 2u last evening and pt feeling much better. Discussed with icu provider, will get 10am cbc and if stable, ok for transfer from ob standpoint if icu agreeable to floor Subjective Resting comfortably in bed this am, feeling much better after 2u prbcs overnight. Feels more awake and energetic. Voiding adequately via murray. Did pass flatus once this am. Physical Exam Gastrointestinal (Abdomen) abd soft, mildly distended, appropriately tender. Dressing c/d/i. Hypoactive bowel sounds but improved from yesterday Results & Data Vital Signs (Past 12 Hours) Vital Signs Temp Pulse Resp BP Pulse Ox Pulse Ox O2 Del Method 01/26/25 08:26 98.2 F 01/26/25 08:03 72 17 97 01/26/25 08:00 59 L 01/26/25 08:00 117/58 L 01/26/25 07:57 75 16 97 01/26/25 07:30 117/66 01/26/25 07:09 64 13 95 01/26/25 07:00 61 15 97 01/26/25 07:00 102/51 L 01/26/25 07:00 102/51 L 01/26/25 07:00 102/51 L 01/26/25 07:00 102/51 L 01/26/25 06:48 60 15 96 01/26/25 06:30 105/55 L 01/26/25 06:30 105/55 L 01/26/25 06:24 64 14 95 01/26/25 06:09 99.7 F H 64 16 95 01/26/25 06:00 95/54 L 01/26/25 05:01 98.1 F 71 14 97/48 L 95 01/26/25 04:19 98.2 F 71 14 93/47 L 95 01/26/25 04:00 90/45 L 01/26/25 03:19 98.1 F 72 14 90/47 L 94 01/26/25 03:00 95 Room Air 01/26/25 02:54 98.2 F 01/26/25 02:49 98.2 F 72 13 93/50 L 94 01/26/25 02:45 71 12 94 01/26/25 02:34 98.2 F 75 12 94/49 L 94 01/26/25 02:30 70 12 01/26/25 02:30 93/55 L 01/26/25 02:30 93/55 L 01/26/25 02:30 93/55 L 01/26/25 02:30 93/55 L 01/26/25 02:30 93/55 L 01/26/25 02:30 93/55 L 01/26/25 02:21 72 14 94 01/26/25 02:17 98.2 F 79 16 95/47 L 95 01/26/25 02:00 66 15 97 01/26/25 02:00 106/51 L 01/26/25 02:00 106/51 L 01/26/25 02:00 106/51 L 01/26/25 02:00 106/51 L 01/26/25 02:00 106/51 L 01/26/25 02:00 106/51 L 01/26/25 02:00 106/51 L 01/26/25 02:00 106/51 L 01/26/25 01:45 67 14 97 01/26/25 01:30 105/57 L 01/26/25 01:30 105/57 L 01/26/25 01:30 105/57 L 01/26/25 01:30 105/57 L 01/26/25 01:30 105/57 L 01/26/25 01:30 105/57 L 01/26/25 01:30 105/57 L 01/26/25 01:30 105/57 L 01/26/25 01:30 105/57 L 01/26/25 01:30 105/57 L 01/26/25 01:30 105/57 L 01/26/25 01:24 67 15 95 01/26/25 01:15 73 14 95 01/26/25 01:00 66 16 99 01/26/25 01:00 105/52 L 01/26/25 01:00 105/52 L 01/26/25 01:00 105/52 L 01/26/25 01:00 105/52 L 01/26/25 01:00 105/52 L 01/26/25 01:00 105/52 L 01/26/25 01:00 105/52 L 01/26/25 01:00 105/52 L 01/26/25 00:51 75 16 96 01/26/25 00:33 72 13 94 01/26/25 00:30 98/52 L 01/26/25 00:30 98/52 L 01/26/25 00:30 98/52 L 01/26/25 00:30 98/52 L 01/26/25 00:30 98/52 L 01/26/25 00:30 98/52 L 01/26/25 00:21 73 12 95 01/26/25 00:00 98.2 F 01/26/25 00:00 96/46 L 01/26/25 00:00 96/46 L 01/26/25 00:00 96/46 L 01/26/25 00:00 96/46 L 01/26/25 00:00 96/46 L 01/26/25 00:00 96/46 L 01/26/25 00:00 96/46 L 01/26/25 00:00 96/46 L 01/26/25 00:00 96/46 L 01/26/25 00:00 70 16 95 01/26/25 00:00 66 01/25/25 23:59 66 01/25/25 23:45 80 14 96 01/25/25 23:30 94/47 L 01/25/25 23:30 94/47 L 01/25/25 23:30 94/47 L 01/25/25 23:30 94/47 L 01/25/25 23:30 94/47 L 01/25/25 23:30 94/47 L 01/25/25 23:30 94/47 L 01/25/25 23:30 94/47 L 01/25/25 23:30 94/47 L 01/25/25 23:30 94/47 L 01/25/25 23:30 94/47 L 01/25/25 23:30 94/47 L 01/25/25 23:30 94/47 L 01/25/25 23:30 94/47 L 01/25/25 23:30 94/47 L 01/25/25 23:30 94/47 L 01/25/25 23:30 94/47 L 01/25/25 23:30 69 12 95 01/25/25 23:15 70 12 94 01/25/25 23:00 94/48 L 01/25/25 23:00 94/48 L 01/25/25 23:00 69 14 95 01/25/25 22:36 65 15 95 01/25/25 22:30 101/50 L 01/25/25 22:30 101/50 L 01/25/25 22:24 74 14 94 01/25/25 22:03 71 13 94 01/25/25 22:00 105/52 L 01/25/25 22:00 105/52 L 01/25/25 21:57 71 13 94 01/25/25 21:45 73 14 95 01/25/25 21:44 101.5 F H 69 13 99/47 L 94 01/25/25 21:30 100/54 L 01/25/25 21:30 100/54 L 01/25/25 21:27 68 14 97 01/25/25 21:15 77 16 99 01/25/25 21:03 73 13 97 01/25/25 21:01 105/46 L
[2025-01-26 10:39] LABS: Hematocrit (blood only) 23.5 % (37.0-47.0); Hemoglobin 8.3 g/dl (12.0-16.0)
[2025-01-26] MEDS: traMADol HCL 50 MG TABLET PO STA (13:07)
[2025-01-26] MEDS: PANTOprazole 40 MG TAB PO SCH (13:16)
--- NOTE | 2025-01-26 17:39 | Obstetrical Progress Note ---
Date of Service January 26, 2025 Assessment & Plan (1) hemorrhage: (2) S/P abdominal supracervical subtotal hysterectomy: Plan pt doing well and ok to transfer to floor. no evidence of on-going bleeding. can remove murray and pt can use walker assist to BR, she says she is ready to be more mobile, benefits of such reviewed. can allow shower when pt able to ambulate well. reviewed with couple. they note they thought cx removed at time of surgery along with uterus and one ovary, i explained that is unusual in this circumstance but i will check the OR notes and let them know. Per OR note, supracx hyster. Admission and Anticipated Discharge Date Admission Date: January 24, 2025 Subjective Notified by my colleague earlier this afternoon that ICU provider wanted us to re-see pt before transfer to floor. Due to acuity on LD and ongoing OR cases only could see pt now. Had seen hgb earlier today and stable. Urine output notably excellent. Pt notes feels much better. Eating, passing gas. Sore to ambulate and so murray has not been removed as of yet. Spouse at bedside and both express appreciation for their care. Physical Exam Constitutional: WD/WN, vitals as above Gastrointestinal (Abdomen): Inspection/Auscultation: abdomen normal to inspection; abdomen not distended Percussion/Palpation: abdomen soft; abdomen nontender and no guarding dressing c/d/i Results & Data Vital Signs (Past 12 Hours) Vital Signs Temp Pulse Resp BP Pulse Ox O2 Del Method 01/26/25 11:30 98.2 F 01/26/25 11:00 105/71 01/26/25 11:00 75 16 97 Room Air 01/26/25 10:30 112/60 01/26/25 10:30 112/60 01/26/25 10:24 71 17 97 01/26/25 10:09 69 18 96 01/26/25 10:00 110/63 01/26/25 10:00 110/63 01/26/25 09:48 70 16 97 01/26/25 09:30 116/65 01/26/25 09:30 116/65 01/26/25 09:30 76 19 97 01/26/25 09:06 73 16 97 01/26/25 09:00 113/68 01/26/25 08:26 98.2 F 01/26/25 08:03 72 17 97 01/26/25 08:00 59 L 01/26/25 08:00 117/58 L 01/26/25 07:57 75 16 97 01/26/25 07:30 117/66 01/26/25 07:09 64 13 95 01/26/25 07:00 61 15 97 01/26/25 07:00 102/51 L 01/26/25 07:00 102/51 L 01/26/25 07:00 102/51 L 01/26/25 07:00 102/51 L 01/26/25 06:48 60 15 96 01/26/25 06:30 105/55 L 01/26/25 06:30 105/55 L 01/26/25 06:24 64 14 95 01/26/25 06:09 99.7 F H 64 16 95 01/26/25 06:00 95/54 L PG Care Time/CCT Total # of Minutes Spent Total Time Spent with Patient: Total time spent is greater than 50% in coordination of care (as documented) at patient's floor/unit and/or counseling patient: Coding Level of Care Code None Diagnoses Other immediate hemorrhage O72.1 hemorrhage type: other immediate S/P abdominal supracervical subtotal hysterectomy Z90.711 (1) hemorrhage hemorrhage type: other immediate Qualified Code(s): O72.1 - Other immediate hemorrhage
[2025-01-26] MEDS ORDERED: ICU ELECTROLYTE REPLACEMENT PROTOCOL SCH (18:00)
[2025-01-26] MEDS: oxyCODONE HCL IR 5 MG TAB (IMMEDIATE RELEASE) PO PRN ×2 (18:36→22:11)
[2025-01-26] MEDS: IBUPROFEN 600 MG TAB PO PRN (19:56)
[2025-01-27 06:07] LABS: Basophils # (auto) 0.03 K/uL (0.00-0.20); Basophils % (auto) 0.2 %; Eosinophils # (auto) 0.01 K/uL (0.00-0.50); Eosinophils % (auto) 0.1 %; Immature Granulocytes # (auto) 0.68 K/uL (0.01-0.20); Immature Granulocytes % (auto) 3.4 %; Lymphocytes # (auto) 1.43 K/uL (1.20-3.40); Lymphocytes % (auto) 7.2 %; Mean Corpuscular Hemoglobin 28.7 pg (25.0-34.0); Mean Corpuscular Hgb Conc 34.8 g/dL (32.0-36.0); Mean Corpuscular Volume 82.4 fL (80.0-100.0); Mean Platelet Volume 10.5 fL (9.4-12.4); Monocytes # (auto) 1.29 K/uL (0.11-0.59); Monocytes % (auto) 6.5 %; Neutrophils % (auto) 82.6 %; Nucleated RBC # (auto) 0.02 K/uL (0.00-0.12); Nucleated RBC % (auto) 0.1 %; Platelet Count 120 K/uL (130-400); RDW Standard Deviation 47.9 fL (36.4-46.3); Red Blood Count 2.79 M/uL (4.20-5.40); White Blood Count 19.84 K/ul (4.8-10.8)
[2025-01-27 06:24] LABS: Albumin Globulin Ratio 1.3 (0.9-2); Albumin Level 2.6 gm/dl (3.4-5.0); Bilirubin,Total 0.2 mg/dl (0.2-1.0); Calcium 7.8 mg/dl (8.6-10.3); Magnesium 1.9 mg/dl (1.7-2.4); Potassium 4.2 mmol/L (3.5-5.1); Total Protein 4.6 gm/dl (6.0-8.3)
--- NOTE | 2025-01-27 07:04 | Obstetrical Progress Note ---
Date of Service January 27, 2025 Assessment & Plan (1) S/P abdominal supracervical subtotal hysterectomy: (2) Encounter for care and examination after delivery: (3) hemorrhage: hemorrhage type: other immediate Qualified Code(s): O72.1 - Other immediate hemorrhage Plan pt doing well this am. having pain relief from her pain meds. hgb pending. enc ambulation, cont with regular diet. ok to shower. routine care. Subjective Ambulation: ambulating normally Voiding: no voiding problems Passing Gas:: Yes Diet Tolerance:: regular diet pain control much better this am. using oxycodone. no n/v, cp or sob Constitutional: + as per Subjective / HPI Physical Exam Constitutional WD/WN, vitals as above Respiratory normal respiratory effort, lungs clear to auscultation Cardiovascular Rate/Rhythm: regular rate and regular rhythm Gastrointestinal (Abdomen) Inspection/Auscultation: abdomen normal to inspection and + abdominal surgical incision (c/d/i) Percussion/Palpation: abdomen soft; abdomen nontender and no guarding Musculoskeletal nt calves no edema Neurologic grossly normal Psychiatric A+Ox3, euthymic affect Results & Data Vital Signs (Past 12 Hours) Vital Signs Temp Pulse Resp BP Pulse Ox O2 Del Method 01/27/25 03:27 97.9 F 58 L 16 110/69 95 Room Air 01/26/25 23:00 97.9 F 68 18 113/71 96 Room Air 01/26/25 19:15 98.2 F 67 18 111/67 97 Room Air
[2025-01-28 03:39] VITALS: TEMP 97.5
[2025-01-28] MEDS: COUGH DROP (SUGAR FREE) LOZ 24 LOZ/1 BOX BUCCAL STA (05:04)
[2025-01-28 09:13] VITALS: BP 131/75; RESP 18; O2SAT 98
--- NOTE | 2025-01-28 09:30 | Obstetrical Progress Note ---
Date of Service January 28, 2025 Assessment & Plan (1) S/P abdominal supracervical subtotal hysterectomy: Delivered of infant and subsequently underwent NOE/LSO for hemorrhage with ICU stay and significant blood product replacement. Labs and vitals have been reassuring, patient feeling well, ready for D/C home. Planned for f/u in office in 1 week. Subjective Ambulation: ambulating normally Voiding: no voiding problems Passing Gas:: Yes Diet Tolerance:: regular diet Lochia:: Small Feeding Type:: bottle feeding Current Pain Level(1-10): 0 Physical Exam Constitutional WD/WN, vitals as above Eyes PERRL, conjunctivae normal, anicteric sclerae ENMT external ear and nose normal, oropharynx normal Neck trachea midline, no thyromegaly Respiratory normal respiratory effort and able to speak in complete sentences; no respiratory distress, no labored breathing and does not use accessory muscles Cardiovascular Rate/Rhythm: regular rate and regular rhythm Extremities: no calf tenderness and no pedal edema Chest (Breasts) Breast: normal inspection of breasts Gastrointestinal (Abdomen) Inspection/Auscultation: abdomen normal to inspection (Incision area ecchymotic c/w known surgical history, incision itself c/d/i); abdomen not distended Musculoskeletal no cyanosis or clubbing, extremities motor strength 5/5 Skin no rashes, warm and dry Neurologic patellar DTR's 2+ bilat, sensation intact Psychiatric A+Ox3, euthymic affect Results & Data Vital Signs (Past 12 Hours) Vital Signs Temp Pulse Resp BP Pulse Ox O2 Del Method 01/28/25 09:12 97.5 F L 77 18 131/75 98 Room Air 01/28/25 03:38 97.5 F L 57 L 16 117/74 94 Room Air 01/27/25 23:38 97.7 F 52 L 16 107/65 96 Room Air
[2025-01-28 12:10] VITALS: PULSE 71
--- NOTE | 2025-02-02 11:14 | Discharge Summary ---
Date of Service February 02, 2025 Admission HPI Per Admitting Provider Leana is a 39-year-old G5, P3 currently at 39 weeks 4 days gestational age presents for induction of labor secondary to history of precipitous delivery. and Delivery Plans Hypothyroid *Check TFTs Q4wks AMA Weekly NST's @ 36 weeks Hep B non-immune Left Ovarian Mass *Recheck at Anatomy *Referral to Dr. Flores -Remains stable in size and imaging favoring dermoid -Removal by Dr. Flores PP in February Migraine *refer to clinic Gestational Diabetes Growth u/s's q 4 weeks GBS Positive *Treat in Labor Hx Precip last baby OB Labs: Blood Type A Positive 08/08/24 Antibody Screen NEGATIVE 08/08/24 Hgb 12.5 g/dl (12.0-16.0) 11/10/24 Hct 37.4 % (37.0-47.0) 11/10/24 MCV 83.9 fL (80.0-100.0) 08/08/24 Plt Count 359 K/uL (130-400) 08/08/24 Rubella IgG Antibody Immune (Immune) 08/08/24 RPR Nonreactive (Nonreactive) 05/01/19 Treponema pallidum Ab Negative (Negative) 11/10/24 Hep Bs Antigen Negative (Negative) 08/08/24 Hepatitis C Antibody Negative (Negative) 08/08/24 HIV 1&2 Ab/P24 Ag 4thGn Negative (Negative) 08/08/24 Glucose 1 Hr 50 gm 150 mg/dl (70-130) H 09/05/24 OB Optional Labs: Chlamydia trachomatis RNA Not Detected (NotDetected) 08/08/24 Neisseria gonorrhoeae RNA Not Detected (NotDetected) 08/08/24 Thyroid Stimulating Hormone (TSH) 2.440 uIu/ml (0.300-4.500) 11/10/24 Discharge Data Consultations 01/25/25 01:56 Consult Cross Tie Maker Stat Procedures Performed Operation Date: 01/24/25 22:15 <No data on this case meets the specified criteria> Discharge Instructions Patient admitted for an elective induction secondary to history of precipitous delivery. Had a spontaneous vaginal delivery that was complicated by a hemorrhage secondary to a upper cervical lower uterine segment laceration extending into the uterine vessels. Supracervical hysterectomy ultimately performed and patient managed in ICU following. Received a total of 11 units of packed red cells plus multiple units of other blood factors. Ultimately discharged in stable condition with close follow-up planned. Provided both written and verbal discharge instructions. Please see op report for additional details on surgical course. Coding Level of Care Code None
== END 2025-01-28 14:50 | disposition home or self-care (01) | DRG 768 ==
LOC: 4S1 07:44 → 1E 01-25 01:45 → 4E2 01-26 18:01

== ENCOUNTER 2025-01-29 15:48 | Inpatient (IN) ==
[2025-01-29] MEDS: OPTIRAY 320 100ml IV ONE (16:44)
[2025-01-29] MEDS: cefTRIAXone SODIUM 2,000 MG/50 ML BAG IV STA (16:50)
[2025-01-29 16:58] LABS: Albumin Globulin Ratio 1.3 (0.9-2); Albumin Level 3.5 gm/dl (3.4-5.0); BUN Creatinine Ratio 12.9 (10-20); Bilirubin,Total 0.8 mg/dl (0.2-1.0); Calcium 8.6 mg/dl (8.6-10.3); Creatinine Clr Calc Pharmacy 115.2 ml/min; Globulin 2.7 gm/dl (2.5-4.0); Potassium 3.4 mmol/L (3.5-5.1); Total Protein 6.2 gm/dl (6.0-8.3)
--- NOTE | 2025-01-29 17:16 | XRay Report ---
EXAM: XR chest 1V portable CLINICAL HISTORY: Pneumonia TECHNIQUE: An X-ray image of the chest is obtained in AP portable projection. COMPARISON: No prior studies are available for comparison. FINDINGS: Pulmonary Parenchyma: Non- homogeneous opacity seen in the right perihilar region and lower zone paracardiac region. The right costophrenic angle appear clear. Suggestion of blunting of left costophrenic angle due to mild left pleural effusion. Atelectatic changes seen in left lower zone. Heart and Mediastinum: Heart shadow is magnified. No mediastinal widening or masses. No hilar or mediastinal lymphadenopathy. Bony Thorax: Bony thorax appears intact without fractures or deformities. Soft Tissues: Soft tissues overlying the chest wall are unremarkable. IMPRESSION: 1. Right lower lobe pneumonic consolidation. Suggest clincial and lab correlation and follow up. 2. Suggestion of mild left pleural effusion Electronically signed by Yo Bruce 01-29-2025 5:16 PM
[2025-01-29 17:24] LABS: Adenovirus PCR Not Detected (NotDetected); Bordetella parapertussis PCR Not Detected (NotDetected); Bordetella pertussis PCR Not Detected (NotDetected); Chlamydia pneumoniae PCR Not Detected (NotDetected); Coronavirus 229E PCR Not Detected (NotDetected); Coronavirus CoV-2 (COVID19)PCR Not Detected (NotDetected); Coronavirus HKU1 PCR Not Detected (NotDetected); Coronavirus NL63 PCR Not Detected (NotDetected); Coronavirus OC43PCR Not Detected (NotDetected); Human Metapneumovirus PCR Not Detected (NotDetected); Influenza A PCR Not Detected (NotDetected); Influenza B PCR Not Detected (NotDetected); Mycoplasma pneumoniae PCR Not Detected (NotDetected); Parainfluenza Virus 1 PCR Not Detected (NotDetected); Parainfluenza Virus 2 PCR Not Detected (NotDetected); Parainfluenza Virus 3 PCR Not Detected (NotDetected); Parainfluenza Virus 4 PCR Not Detected (NotDetected); Respiratory Syncytial VirusPCR Not Detected (NotDetected); Rhinovirus/Enterovirus PCR Not Detected (NotDetected)
[2025-01-29] MEDS: AZITHROMYCIN 500 MG/255 ML BAG IV ONE (17:32)
--- NOTE | 2025-01-29 17:48 | Emergency Department Note ---
Impression & Plan Pneumonia ED Provider Note NAME: UT LU AGE: 39 SEX: F : 1985 ARRIVES VIA: Walk-In INFORMANT: [Patient][, ] ED PROVIDER(S): [Preston Soriano MD] CHIEF COMPLAINT: Fever, cough, recent hysterectomy HPI: This is a 39-year-old female presenting for cough, fever and recent hysterectomy. Patient recently gave with complicated course including significant bleeding due to cervical tear requiring emergent hysterectomy/oophorectomy. She went to hemorrhagic shock and needed to be intubated mechanically ventilated. She notes that she spent some time in the ICU and received total of over 11 units of blood. She otherwise was discharged in the hospital yesterday and since leaving has had worsening cough, abdominal pain, shaking chills and fever. She reports feeling terrible at this time. He went to [facility] [employer] who advised to come to the ER for further rhythm evaluation. ROS: See above HPI for pertinent positives & negatives. A total of [10] systems reviewed and were otherwise negative. PAST MEDICAL HISTORY: [See Below] PAST SURGICAL HISTORY: See Below FAMILY HISTORY: See Below SOCIAL HISTORY: See Below HOME MEDICATIONS: See Below ALLERGIES: See Below VITALS: See Below PHYSICAL EXAMINATION: General: Acutely ill-appearing Head: Normocephalic and atraumatic Eyes: Normal inspection, extraocular muscles intact Ear, nose, throat: Normal external exam Neck: Normal range of motion Respiratory: Diminished right lower lobe lung sounds Cardiovascular: Regular rate/rhythm, no murmur GI: soft, nontender, no guarding or rebound,well-healing surgical scar in the lower abdomen Extremities: nontender, moves all extremities Neuro: The patient awake and alert, appropriately conversive, no focal deficits, symmetric faces Skin: Warm, dry, and intact MEDICAL DECISION MAKING: This is a 39-year-old female presenting for cough, fever in the setting of recent hysterectomy and shock. Patient recently had procedure including hysterectomy/oophorectomy and had hemorrhagic shock in the ICU. Recently discharged. Now worsening. Patient visibly looks uncomfortable and looks somewhat toxic. Surprisingly her vital signs are reassuring without hypotension or tachycardia. No acute fever at this time. Also saturation within normal limits. -Consider pneumonia, intra-abdominal infection, surgical infection -Will do basic blood work, chest x-ray, CT Abdo/pelvis -Chest Xray independently interpreted by me showing large right lower lobe opacity concerning for pneumonia, no pneumothorax is noted -Will give ceftriaxone azithromycin at this time, IV due to the patient's clinical appearance -CT abdomen/pelvis reveals postoperative changes of the nonvisualized uterus, otherwise there is bilateral ovarian veins prominent and a umbilical region defect with air -Patient will require admission to hospital service, care discussed with Dr. Ramachandran Differential diagnosis: Sepsis, pneumonia, intra-abdominal infection, abscess Independent History obtained from: Diagnostics interpreted by me: ECG: None Cardiac Monitoring: An order was placed for continuous cardiac monitoring. The monitor shows a rate of 73 with sinus rhythm. Past Med/Surg History Problem List (Updated 01/30/25 @ 18:59 by Preston Soriano MD) Pneumonia (Acute) Pulmonary embolism Hospital acquired PNA Hypothyroidism S/P abdominal supracervical subtotal hysterectomy Encounter for care and examination after delivery Encounter for postoperative care hemorrhage Metabolic acidosis Hemorrhagic shock Group B streptococcal infection during Migraine without aura Gestational diabetes Encounter for follow-up ultrasound of anatomy Not immune to hepatitis B virus Umbilical hernia Vulvitis Cyst of left ovary during Early stage of Encounter for anatomic survey Hypothyroid in , antepartum Elderly multigravida Subclinical hypothyroidism Medical History Insomnia GERD (gastroesophageal reflux disease) Globus sensation Anxiety Neck pain Rebound headache TMJ (temporomandibular joint disorder) Post-traumatic headache Paresthesia Ataxia GERD (gastroesophageal reflux disease) Migraine Anxiety H/O varicella H/O chlamydia infection History of miscarriage Thyroid disease in Surgical History S/P wisdom tooth extraction S/P dilation and curettage Family History Other Adopted Social History Smoking Status: Never smoker Second Hand Exposure: No; Do You Dip or Chew Tobacco: No; Hx Alcohol Use: No Hx Substance Use: No Preferred Language: Occitan Communication Ability: Effective Visual Impairment: No Limitations Hearing Ability: Normal Driver Salesman Required: No Beliefs That Will Affect Care: None marital status: marital status details: Fob Fabien Sparks [phone] Current Living Situation: Family Current Living Situation Comment: Boyfriend and 3 kids current occupational status: employed 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 [employer] How many Children do You have: 3 Feels Safe at Home: Yes Childhood Exposure to Second-Hand Smoke: No Diet: regular Diet Comment: regular caffeine: Yes during the past year weight has: increased > 10 lbs Dental Care, Regularly: Yes Physical Activity Frequency: Daily Seatbelt Use: always Sunscreen Use: Yes Assistive Devices: None Allergies Allergies Allergy/AdvReac Type Severity Reaction Status Date / Time methylprednisolone AdvReac Severe Anxiety Verified 01/29/25 19:42 [From Medrol] Home Meds Home Medications Medication Instructions Recorded Confirmed levothyroxine 88 mcg tablet 88 mcg PO DAILY 01/24/25 01/29/25 vits [id number] fum 1 tab PO HS 01/24/25 01/29/25 27 mg iron-folic acid 800 mcg tablet ( Vitamin) Previous Rx's Medication Instructions Recorded blood sugar diagnostic (OneTouch #150 ea 12/28/24 Verio test strips) blood-glucose meter (OneTouch #1 ea 12/28/24 Verio Reflect Meter) lancets 33 gauge (OneTouch Delica #150 ea 12/28/24 Plus Lancet) oxycodone 5 mg tablet 5 mg PO .q4hrs PRN pain #20 tabs 01/29/25 Results & Data (ED) Vital Signs Vital Signs - 24 hr 01/29/25 20:01 01/29/25 20:44 01/29/25 22:09 Pulse Rate 108 H Pulse Rate [Apical] 88 84 Pulse Rhythm [Apical] Regular Regular Pulse Strength [Apical] Normal Normal Respiratory Rate 24 27 H Respiratory Effort / Characteristics Non-Labored Non-Labored Respiratory Depth Normal Normal Respiratory Pattern Regular Regular Blood Pressure [Left Arm] 121/63 130/67 Blood Pressure Mean [Left Arm] 82 88 Blood Pressure Position [Left Arm] Lying Lying Pulse Oximetry 95 93 Oxygen Delivery Method Room Air Room Air Laboratory Data 01/30/25 17:26 01/30/25 05:33 Lab Results 01/29/25 01/29/25 01/29/25 Range/Units 16:12 16:13 16:14 WBC 21.92 H (4.8-10.8) K/ul RBC 3.28 L (4.20-5.40) M/uL Hgb 9.6 L (12.0-16.0) g/dl POC Hgb (12.0-16.0) g/dl Hct 28.8 L (37.0-47.0) % POC Hct (37-47) % MCV 87.8 D (80.0-100.0) fL MCH 29.3 (25.0-34.0) pg MCHC 33.3 (32.0-36.0) g/dL RDW Std Deviation 50.9 H (36.4-46.3) fL RDW Coeff of Umesh 17.1 H (11.5-14.5) % Plt Count 288 (130-400) K/uL MPV 9.6 (9.4-12.4) fL Immature Gran % (Auto) 2.5 % Neut % (Auto) 88.9 % Lymph % (Auto) 5.3 % [place] % (Auto) 3.1 % Eos % (Auto) 0.0 % Baso % (Auto) 0.2 % Neut # (Auto) 19.49 H (1.40-6.50) K/uL Lymph # (Auto) 1.16 L (1.20-3.40) K/uL [place] # (Auto) 0.67 H (0.11-0.59) K/uL Eos # (Auto) 0.01 (0.00-0.50) K/uL Baso # (Auto) 0.05 (0.00-0.20) K/uL Immature Gran # (Auto) 0.54 H (0.01-0.20) K/uL Absolute Nucleated RBC 0.03 (0.00-0.12) K/uL Nucleated RBC % (auto) 0.1 % POC Sodium (135-144) mmol/L Sodium 136 (136-145) mmol/L POC Potassium (3.3-5.0) mmol/L Potassium 3.4 L (3.5-5.1) mmol/L POC Chloride (101-112) mmol/L Chloride 100 (98-107) mmol/L Carbon Dioxide 27 (21-32) mmol/L POC Total CO2 (24-31) mmol/L Anion Gap 9 (3-11) POC Anion Gap (16-25) mmol/L POC BUN (7-18) mg/dl BUN 8 (6-23) mg/dl Creatinine 0.62 (0.6-1.2) mg/dl POC Creatinine (0.6-1.3) mg/dl Est Cr Clr Drug Dosing 115.2 ml/min eGFR 116.10 BUN/Creatinine Ratio 12.9 (10-20) Glucose 92 (70-99(Fasting)) mg/dl POC Glucose (other) (70-99) mg/dl Lactate (0.4-2.0) mmol/L Calcium 8.6 (8.6-10.3) mg/dl POC Ioniz Calcium Camilla (1.12-1.32) mmol/l Magnesium 1.5 L (1.7-2.4) mg/dl Total Bilirubin 0.8 (0.2-1.0) mg/dl AST 22 (13-39) U/L ALT 16 (7-52) U/L Alkaline Phosphatase 121 H (34-104) U/L Total Protein 6.2 (6.0-8.3) gm/dl Albumin 3.5 (3.4-5.0) gm/dl Globulin 2.7 (2.5-4.0) gm/dl Albumin/Globulin Ratio 1.3 (0.9-2) Urine Color Urine Appearance (Clear) Urine pH (4.5-7.5) Ur Specific Jackson (1.000-1.030) Urine Protein (Negative) Urine Glucose (UA) (Negative) Urine Ketones (Negative) Urine Blood (Negative) Urine Nitrite (Negative) Urine Bilirubin (Negative) Urine Urobilinogen (Negative) Ur Leukocyte Esterase (Negative) Urine WBC (Auto) (0-5) /hpf Urine RBC (Auto) (0-2) /hpf U Hyaline Cast (Auto) (0-2) /lpf U Epithel Cells (Auto) (0-2) /hpf Urine Bacteria (Auto) (None Seen) Nasal Screen MRSA (PCR) (Negative) Adenovirus (PCR) Not Detected (NotDetected) B. pertussis DNA (PCR) Not Detected (NotDetected) B.parapertussis DNA PCR Not Detected (NotDetected) C. pneumoniae DNA (PCR) Not Detected (NotDetected) Coronavirus OC43 (PCR) Not Detected (NotDetected) Coronavirus HKU1 (PCR) Not Detected (NotDetected) Coronavirus 229E (PCR) Not Detected (NotDetected) SARS-CoV-2 (PCR) Not Detected (NotDetected) Coronavirus NL63 (PCR) Not Detected (NotDetected) Human Metapneumovir PCR Not Detected (NotDetected) Influenza Type A (PCR) Not Detected (NotDetected) Influenza Type B (PCR) Not Detected (NotDetected) M. pneumoniae (PCR) Not Detected (NotDetected) Parainfluenza 1 (PCR) Not Detected (NotDetected) Parainfluenza 2 (PCR) Not Detected (NotDetected) Parainfluenza 3 (PCR) Not Detected (NotDetected) Parainfluenza 4 (PCR) Not Detected (NotDetected) RSV (PCR) Not Detected (NotDetected) Entero/Rhino (PCR) Not Detected (NotDetected) Blood Type A Positive Antibody Screen NEGATIVE 01/29/25 01/29/25 01/29/25 Range/Units 16:27 17:35 18:07 WBC (4.8-10.8) K/ul RBC (4.20-5.40) M/uL Hgb (12.0-16.0) g/dl POC Hgb 7.1 L (12.0-16.0) g/dl Hct (37.0-47.0) % POC Hct 21 L (37-47) % MCV (80.0-100.0) fL MCH (25.0-34.0) pg MCHC (32.0-36.0) g/dL RDW Std Deviation (36.4-46.3) fL RDW Coeff of Umesh (11.5-14.5) % Plt Count (130-400) K/uL MPV (9.4-12.4) fL Immature Gran % (Auto) % Neut % (Auto) % Lymph % (Auto) % [place] % (Auto) % Eos % (Auto) % Baso % (Auto) % Neut # (Auto) (1.40-6.50) K/uL Lymph # (Auto) (1.20-3.40) K/uL [place] # (Auto) (0.11-0.59) K/uL Eos # (Auto) (0.00-0.50) K/uL Baso # (Auto) (0.00-0.20) K/uL Immature Gran # (Auto) (0.01-0.20) K/uL Absolute Nucleated RBC (0.00-0.12) K/uL Nucleated RBC % (auto) % POC Sodium 134 L (135-144) mmol/L Sodium (136-145) mmol/L POC Potassium 3.4 (3.3-5.0) mmol/L Potassium (3.5-5.1) mmol/L POC Chloride 99 L (101-112) mmol/L Chloride (98-107) mmol/L Carbon Dioxide (21-32) mmol/L POC Total CO2 25 (24-31) mmol/L Anion Gap (3-11) POC Anion Gap 14.0 L (16-25) mmol/L POC BUN 6 L (7-18) mg/dl BUN (6-23) mg/dl Creatinine (0.6-1.2) mg/dl POC Creatinine 0.7 (0.6-1.3) mg/dl Est Cr Clr Drug Dosing ml/min eGFR BUN/Creatinine Ratio (10-20) Glucose (70-99(Fasting)) mg/dl POC Glucose (other) 90 (70-99) mg/dl Lactate 2.1 H* (0.4-2.0) mmol/L Calcium (8.6-10.3) mg/dl POC Ioniz Calcium Camilla 1.13 (1.12-1.32) mmol/l Magnesium (1.7-2.4) mg/dl Total Bilirubin (0.2-1.0) mg/dl AST (13-39) U/L ALT (7-52) U/L Alkaline Phosphatase (34-104) U/L Total Protein (6.0-8.3) gm/dl Albumin (3.4-5.0) gm/dl Globulin (2.5-4.0) gm/dl Albumin/Globulin Ratio (0.9-2) Urine Color Yellow Urine Appearance Clear (Clear) Urine pH 7.5 (4.5-7.5) Ur Specific [place] 1.024 (1.000-1.030) Urine Protein Negative (Negative) Urine Glucose (UA) Negative (Negative) Urine Ketones Negative (Negative) Urine Blood 2+ H (Negative) Urine Nitrite Negative (Negative) Urine Bilirubin Negative (Negative) Urine Urobilinogen Negative (Negative) Ur Leukocyte Esterase 2+ H (Negative) Urine WBC (Auto) 11-20 H (0-5) /hpf Urine RBC (Auto) 0-2 (0-2) /hpf U Hyaline Cast (Auto) 0-2 (0-2) /lpf U Epithel Cells (Auto) 0-2 (0-2) /hpf Urine Bacteria (Auto) None Seen (None Seen) Nasal Screen MRSA (PCR) (Negative) Adenovirus (PCR) (NotDetected) B. pertussis DNA (PCR) (NotDetected) B.parapertussis DNA PCR (NotDetected) C. pneumoniae DNA (PCR) (NotDetected) Coronavirus OC43 (PCR) (NotDetected) Coronavirus HKU1 (PCR) (NotDetected) Coronavirus 229E (PCR) (NotDetected) SARS-CoV-2 (PCR) (NotDetected) Coronavirus NL63 (PCR) (NotDetected) Human Metapneumovir PCR (NotDetected) Influenza Type A (PCR) (NotDetected) Influenza Type B (PCR) (NotDetected) M. pneumoniae (PCR) (NotDetected) Parainfluenza 1 (PCR) (NotDetected) Parainfluenza 2 (PCR) (NotDetected) Parainfluenza 3 (PCR) (NotDetected) Parainfluenza 4 (PCR) (NotDetected) RSV (PCR) (NotDetected) Entero/Rhino (PCR) (NotDetected) Blood Type Antibody Screen 01/29/25 01/29/25 Range/Units 19:45 20:40 WBC (4.8-10.8) K/ul RBC (4.20-5.40) M/uL Hgb (12.0-16.0) g/dl POC Hgb (12.0-16.0) g/dl Hct (37.0-47.0) % POC Hct (37-47) % MCV (80.0-100.0) fL MCH (25.0-34.0) pg MCHC (32.0-36.0) g/dL RDW Std Deviation (36.4-46.3) fL RDW Coeff of Umesh (11.5-14.5) % Plt Count (130-400) K/uL MPV (9.4-12.4) fL Immature Gran % (Auto) % Neut % (Auto) % Lymph % (Auto) % [place] % (Auto) % Eos % (Auto) % Baso % (Auto) % Neut # (Auto) (1.40-6.50) K/uL Lymph # (Auto) (1.20-3.40) K/uL [place] # (Auto) (0.11-0.59) K/uL Eos # (Auto) (0.00-0.50) K/uL Baso # (Auto) (0.00-0.20) K/uL Immature Gran # (Auto) (0.01-0.20) K/uL Absolute Nucleated RBC (0.00-0.12) K/uL Nucleated RBC % (auto) % POC Sodium (135-144) mmol/L Sodium (136-145) mmol/L POC Potassium (3.3-5.0) mmol/L Potassium (3.5-5.1) mmol/L POC Chloride (101-112) mmol/L Chloride (98-107) mmol/L Carbon Dioxide (21-32) mmol/L POC Total CO2 (24-31) mmol/L Anion Gap (3-11) POC Anion Gap (16-25) mmol/L POC BUN (7-18) mg/dl BUN (6-23) mg/dl Creatinine (0.6-1.2) mg/dl POC Creatinine (0.6-1.3) mg/dl Est Cr Clr Drug Dosing ml/min eGFR BUN/Creatinine Ratio (10-20) Glucose (70-99(Fasting)) mg/dl POC Glucose (other) (70-99) mg/dl Lactate 1.4 (0.4-2.0) mmol/L Calcium (8.6-10.3) mg/dl POC Ioniz Calcium Camilla (1.12-1.32) mmol/l Magnesium (1.7-2.4) mg/dl Total Bilirubin (0.2-1.0) mg/dl AST (13-39) U/L ALT (7-52) U/L Alkaline Phosphatase (34-104) U/L Total Protein (6.0-8.3) gm/dl Albumin (3.4-5.0) gm/dl Globulin (2.5-4.0) gm/dl Albumin/Globulin Ratio (0.9-2) Urine Color Urine Appearance (Clear) Urine pH (4.5-7.5) Ur Specific [place] (1.000-1.030) Urine Protein (Negative) Urine Glucose (UA) (Negative) Urine Ketones (Negative) Urine Blood (Negative) Urine Nitrite (Negative) Urine Bilirubin (Negative) Urine Urobilinogen (Negative) Ur Leukocyte Esterase (Negative) Urine WBC (Auto) (0-5) /hpf Urine RBC (Auto) (0-2) /hpf U Hyaline Cast (Auto) (0-2) /lpf U Epithel Cells (Auto) (0-2) /hpf Urine Bacteria (Auto) (None Seen) Nasal Screen MRSA (PCR) Negative (Negative) Adenovirus (PCR) (NotDetected) B. pertussis DNA (PCR) (NotDetected) B.parapertussis DNA PCR (NotDetected) C. pneumoniae DNA (PCR) (NotDetected) Coronavirus OC43 (PCR) (NotDetected) Coronavirus HKU1 (PCR) (NotDetected) Coronavirus 229E (PCR) (NotDetected) SARS-CoV-2 (PCR) (NotDetected) Coronavirus NL63 (PCR) (NotDetected) Human Metapneumovir PCR (NotDetected) Influenza Type A (PCR) (NotDetected) Influenza Type B (PCR) (NotDetected) M. pneumoniae (PCR) (NotDetected) Parainfluenza 1 (PCR) (NotDetected) Parainfluenza 2 (PCR) (NotDetected) Parainfluenza 3 (PCR) (NotDetected) Parainfluenza 4 (PCR) (NotDetected) RSV (PCR) (NotDetected) Entero/Rhino (PCR) (NotDetected) Blood Type Antibody Screen Administered Medications Acetaminophen (Acetaminophen 500 Mg Tab) 1,000 mg PO Q8H NOE Stop: 03/01/25 01:14 Last Admin: 01/30/25 16:37 Dose: 1,000 mg Documented By: Admin: 01/30/25 09:04 Dose: 1,000 mg Documented By: Admin: 01/30/25 01:15 Dose: 1,000 mg Documented By: POOJA Hydromorphone HCl (Hydromorphone Inj 0.5 Mg/0.5 Ml Syr) 0.5 mg IV Q6H PRN PRN Reason: Pain Stop: 02/13/25 00:10 Last Admin: 01/30/25 07:28 Dose: 0.5 mg Documented By: ANDRÉS Piperacillin Sod/Tazobactam Sod (Zosyn) 4.5 gm in 100 mls @ 25 mls/hr IV Q8H [facility]; Protocol Stop: 02/06/25 03:59 Last Infusion: 01/30/25 16:35 Dose: Infused Documented By: Admin: 01/30/25 12:05 Dose: 25 mls/hr Documented By: Infusion: 01/30/25 09:58 Dose: Infused Documented By: Admin: 01/30/25 05:42 Dose: 25 mls/hr Documented By: POOJA Heparin Sodium/Dextrose (Heparin 33848 Unit/500 Ml D5w) 25,000 units in 500 mls @ 23 mls/hr IV .[id number] NOE; Protocol Stop: 03/01/25 10:44 Last Titration: 01/30/25 18:52 Dose: 1,150 units/hr, 23 mls/hr Documented By: ANDRÉS Co-signed By: POOJA Titration: 01/30/25 18:25 Dose: 1,150 units/hr, 23 mls/hr Documented By: ANDRÉS Co-signed By: CHAVO Admin: 01/30/25 11:52 Dose: 1,100 units/hr, 22 mls/hr Documented By: ANDRÉS Co-signed By: CHAVO Levothyroxine Sodium (Levothyroxine Sodium 88 Mcg Tablet) 88 mcg PO DAILYBB [facility] Stop: 03/01/25 06:29 Last Admin: 01/30/25 05:42 Dose: 88 mcg Documented By: POOJA Discontinued Medications Heparin Sodium/Dextrose (Heparin Iv Adult Wt-Based Standard *No* Initial Bolus Protocol) 1 each IV ONE STA; Protocol Stop: 01/30/25 10:26 Last Admin: 01/30/25 11:53 Dose: 1 each Documented By: ANDRÉS Hydromorphone HCl (Hydromorphone Inj 0.5 Mg/0.5 Ml Syr) 0.5 mg IV NOW STA Stop: 01/29/25 19:57 Last Admin: 01/29/25 20:01 Dose: 0.5 mg Documented By: AVTAR Ceftriaxone Sodium (Rocephin) 2,000 mg in 50 mls @ 100 mls/hr IV NOW STA Stop: 01/29/25 17:02 Last Infusion: 01/29/25 17:31 Dose: Infused Documented By: Admin: 01/29/25 16:50 Dose: 100 mls/hr Documented By: FE Azithromycin (Zithromax) 500 mg in 255 mls @ 127.5 mls/hr IV NOW ONE Stop: 01/29/25 18:32 Last Infusion: 01/29/25 19:41 Dose: Infused Documented By: Admin: 01/29/25 17:32 Dose: 127.5 mls/hr Documented By: GARY Sodium Chloride (Nss) 1,000 mls @ 999 mls/hr IV .[id number] ONE Stop: 01/29/25 18:45 Last Infusion: 01/29/25 19:41 Dose: Infused Documented By: Admin: 01/29/25 18:45 Dose: 999 mls/hr Documented By: GARY Potassium Chloride (K Og / Wtr) 10 meq in 100 mls @ 100 mls/hr IV Q1H NOE Stop: 01/30/25 00:29 Last Infusion: 01/30/25 02:16 Dose: Infused Documented By: Admin: 01/30/25 01:16 Dose: 100 mls/hr Documented By: Infusion: 01/30/25 00:25 Dose: Infused Documented By: Admin: 01/29/25 23:25 Dose: 100 mls/hr Documented By: Infusion: 01/29/25 23:21 Dose: Infused Documented By: Admin: 01/29/25 22:10 Dose: 100 mls/hr Documented By: Infusion: 01/29/25 21:33 Dose: Infused Documented By: Admin: 01/29/25 20:33 Dose: 100 mls/hr Documented By: AVTAR Vancomycin HCl 1,500 mg/ (Sodium Chloride) 530 mls @ 200 mls/hr IV NOW ONE Stop: 01/29/25 22:57 Last Infusion: 01/29/25 23:25 Dose: Infused Documented By: Admin: 01/29/25 20:32 Dose: 200 mls/hr Documented By: AVTAR Vancomycin HCl 1,250 mg/ (Sodium Chloride) 275 mls @ 200 mls/hr IV Q12H NOE Stop: 02/01/25 03:59 Last Infusion: 01/30/25 04:57 Dose: Infused Documented By: Admin: 01/30/25 03:34 Dose: 200 mls/hr Documented By: POOJA Lactated Ringer's (Lr) 1,000 mls @ 80 mls/hr IV .[id number] NOE Stop: 01/30/25 22:14 Last Infusion: 01/30/25 12:08 Dose: Infused Documented By: Admin: 01/30/25 09:04 Dose: 80 mls/hr Documented By: ANDRÉS Piperacillin Sod/Tazobactam Sod (Zosyn) 4.5 gm in 100 mls @ 200 mls/hr IV NOW STA; Protocol Stop: 01/30/25 00:09 Last Infusion: 01/30/25 00:50 Dose: Infused Documented By: Admin: 01/30/25 00:20 Dose: 200 mls/hr Documented By: POOJA Magnesium Sulfate/Dextrose (Magnesium Sulfate / D5w) 1 gm in 100 mls @ 50 mls/hr IV ONE ONE Stop: 01/30/25 06:07 Last Infusion: 01/30/25 07:24 Dose: Infused Documented By: Admin: 01/30/25 05:05 Dose: 50 mls/hr Documented By: POOJA Potassium Chloride (K Og / Wtr) 10 meq in 100 mls @ 100 mls/hr IV Q1H NOE Stop: 01/30/25 08:59 Last Infusion: 01/30/25 10:22 Dose: Infused Documented By: Admin: 01/30/25 09:05 Dose: 100 mls/hr Documented By: Infusion: 01/30/25 09:05 Dose: Infused Documented By: Admin: 01/30/25 09:05 Dose: 100 mls/hr Documented By: ANDRÉS Ioversol (Optiray 320 100ml) 94 ml IV ONCE ONE Stop: 01/29/25 16:45 Last Admin: 01/29/25 16:44 Dose: 94 ml Documented By: SHYAM Ioversol (Optiray 320 125ml) 118 ml IV ONCE ONE Stop: 01/29/25 21:06 Last Admin: 01/29/25 21:06 Dose: 118 ml Documented By: HALLEY Imaging Data Radiologist's Impression: Abdomen/Pelvis CT 01/29/25 16:04 EXAM: CT abd pelvis IV con only CLINICAL HISTORY: Recent hysterectomy, abd pain, fever TECHNIQUE: CT of the abdomen and pelvis was performed with contrast, with the following protocol: axial images with, and reconstructed coronal and sagittal images. One of the following dose reduction techniques was utilized for this exam: Automated exposure control, adjustment of the mA and/or kV according to patient size, and use of iterative reconstruction. 92 mL Optiray 320 was given as an IV contrast. COMPARISON: Comparison is made with a prior MRI abdomen dated 10/19/2024, and a US abdomen dated 07/28/2024. FINDINGS: Chest: Bilateral pleural thickening/effusion of a minimal amount more to the left side.(unchanged to today's chest x-ray dated 01/29/2025 15:13:31 [employer]CH.) Right lower lung lobe consolidation with air bronchogram. Cardiomegaly. Abdomen: Liver: Increase in size 22.5 cm, normal shape, and density. Segment 2 small hypodense lesion about 5 mm. Hepatic vasculature and biliary ducts are unremarkable. Gallbladder and Biliary System: The gallbladder is normal in size and shape. No wall thickening, pericholecystic fluid, or gallstones were identified. The common bile duct is normal in caliber without dilation. Pancreas: Pancreatic head, body, and tail are visualized and appear normal in size and density. No pancreatic masses or calcifications were noted. The pancreatic duct is not dilated. Spleen: Normal in size, shape, and density. No splenic lesions or masses were identified. Appendix: The appendix is normal in size without erwin appendiceal fat stranding or an appendicolith. No evidence of appendiceal abscess or perforation. Kidneys and Adrenal Glands: Both kidneys are normal in size, shape, and position. Cortical thickness is within normal limits. No renal calculi or hydronephrosis. 3 mm left small cortical simple cysts. Adrenal glands are unremarkable with no evidence of masses or hyperplasia. Pelvis: Urinary Bladder: Normal in contour and wall thickness with air loculi likely previous catheterization. No intraluminal lesions were identified. Uterus: Surgically removed. At the hysterectomy operative bed isodensity is seen likely displaced bowel loops. Bilateral ovarian veins are seen relatively prominent measuring 18 mm in the left and 13 mm. Vagina: Normal in contour and wall thickness. Cervix: No evidence of mass or abnormal thickening. Peritoneal and Retroperitoneal Structures: A mild amount of free fluid was identified within the abdomen or pelvis. No lymphadenopathy was noted. Abdominal wall: Anterior lower abdominal wall abnormal densities are likely post-operative edematous changes. Small defect of 2 cm at the umbilical region with foci of air not related to the bowel, with fatty contents hernial sac. Small air loculi in the peritoneum and left lower abdominal wall surgical emphysema of recent post-operative changes. Bulky lower anterior abdominal wall with no hematoma or active bleeding. Bowel: The visualized bowel loops are normal in caliber and appearance. No evidence of bowel obstruction or wall thickening. Bones and Soft Tissues: Pelvic bones and soft tissues are unremarkable. No fractures or abnormal masses were identified. Marginal vertebral endplate osteophytes. IMPRESSION: 1. Right lower lung consolidation with reactive pleural effusion likely infective consolidation suggests clinical co-relation and follow-up. (new) 2. Post-operative changes of non-visualization of the uterus, mild amount of free fluid in the pelvis, and abdominal wall changes of edema and loculi of peritoneal air against the anterior abdominal wall. (Acceptable recent post-operative changes suggest clinical co-relation and follow-up.) (new) 3. At the hysterectomy operative bed isodensity is seen likely displaced bowel loops by the urinary bladder however ultrasound correlation and follow up are advised. 4. Bilateral ovarian veins are seen relatively prominent measuring 18 mm in the left and 13 mm. further doppler assessment/venography can be considered if clinically indicated. 5. Small defect of 2 cm at the umbilical region with foci of air not related to the bowel, with fatty contents hernial sac. Suggest clinical assessment. (new) 6. Hepatomegaly. (unchanged) Electronically signed by Yo Bruce 01-29-2025 6:39 PM Chest X-Ray 01/29/25 16:04 EXAM: XR chest 1V portable CLINICAL HISTORY: Pneumonia TECHNIQUE: An X-ray image of the chest is obtained in AP portable projection. COMPARISON: No prior studies are available for comparison. FINDINGS: Pulmonary Parenchyma: Non- homogeneous opacity seen in the right perihilar region and lower zone paracardiac region. The right costophrenic angle appear clear. Suggestion of blunting of left costophrenic angle due to mild left pleural effusion. Atelectatic changes seen in left lower zone. Heart and Mediastinum: Heart shadow is magnified. No mediastinal widening or masses. No hilar or mediastinal lymphadenopathy. Bony Thorax: Bony thorax appears intact without fractures or deformities. Soft Tissues: Soft tissues overlying the chest wall are unremarkable. IMPRESSION: 1. Right lower lobe pneumonic consolidation. Suggest clincial and lab correlation and follow up. 2. Suggestion of mild left pleural effusion Electronically signed by Yo Bruce 01-29-2025 5:16 PM Discharge Plan Visit Data Chief Complaint: Fever Stated Complaint: FEVER, CHILLS, COUGH, HAD EMERGENCY HYSTERECTOMY ED Provider: Preston Soriano Discharge Problem: Pneumonia Patient Disposition: Admitted As Inpatient Discharge Instructions Interventions: ED Discharge Assessment Last Done: 01/29/25 23:51 Discharge Problem: Pneumonia Qualifiers: Pneumonia type: due to unspecified organism Laterality: right Lung location: l ower lobe of lung Qualified Code(s): J18.9 - Pneumonia, unspecified organism
[2025-01-29 17:49] LABS: Appearance Urine Clear (Clear); Bacteria Urine Automated None Seen (None Seen); Bilirubin Urine Negative (Negative); Blood Urine 2+ (Negative); Cast Urine Automated 0-2 /lpf (0-2); Color Urine Yellow; Epithelial Cell Urine Auto 0-2 /hpf (0-2); Glucose Urine UA Negative (Negative); Ketones Urine Negative (Negative); Leukocyte Esterase Urine 2+ (Negative); Nitrite Urine Negative (Negative); Protein Urine Negative (Negative); RBC Urine Automated 0-2 /hpf (0-2); Specific Gravity Urine 1.024 (1.000-1.030); Urobilinogen Urine Negative (Negative); pH Urine 7.5 (4.5-7.5)
[2025-01-29 17:53] LABS: Basophils # (auto) 0.05 K/uL (0.00-0.20); Basophils % (auto) 0.2 %; Eosinophils # (auto) 0.01 K/uL (0.00-0.50); Hematocrit (blood only) 28.8 % (37.0-47.0); Hemoglobin 9.6 g/dl (12.0-16.0); Immature Granulocytes # (auto) 0.54 K/uL (0.01-0.20); Immature Granulocytes % (auto) 2.5 %; Lymphocytes # (auto) 1.16 K/uL (1.20-3.40); Lymphocytes % (auto) 5.3 %; Mean Corpuscular Hemoglobin 29.3 pg (25.0-34.0); Mean Corpuscular Hgb Conc 33.3 g/dL (32.0-36.0); Mean Corpuscular Volume 87.8 fL (80.0-100.0); Mean Platelet Volume 9.6 fL (9.4-12.4); Monocytes # (auto) 0.67 K/uL (0.11-0.59); Monocytes % (auto) 3.1 %; Neutrophils # (auto) 19.49 K/uL (1.40-6.50); Neutrophils % (auto) 88.9 %; Nucleated RBC # (auto) 0.03 K/uL (0.00-0.12); Nucleated RBC % (auto) 0.1 %; Platelet Count 288 K/uL (130-400); RDW Coefficient of Variation 17.1 % (11.5-14.5); RDW Standard Deviation 50.9 fL (36.4-46.3); Red Blood Count 3.28 M/uL (4.20-5.40); White Blood Count 21.92 K/ul (4.8-10.8)
--- NOTE | 2025-01-29 18:39 | CT Scan Report ---
EXAM: CT abd pelvis IV con only CLINICAL HISTORY: Recent hysterectomy, abd pain, fever TECHNIQUE: CT of the abdomen and pelvis was performed with contrast, with the following protocol: axial images with, and reconstructed coronal and sagittal images. One of the following dose reduction techniques was utilized for this exam: Automated exposure control, adjustment of the mA and/or kV according to patient size, and use of iterative reconstruction. 92 mL Optiray 320 was given as an IV contrast. COMPARISON: Comparison is made with a prior MRI abdomen dated 10/19/2024, and a US abdomen dated 07/28/2024. 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 Cardiomegaly. Abdomen: Liver: Increase in size 22.5 cm, normal shape, and density. Segment 2 small hypodense lesion about 5 mm. Hepatic vasculature and biliary ducts are unremarkable. Gallbladder and Biliary System: The gallbladder is normal in size and shape. No wall thickening, pericholecystic fluid, or gallstones were identified. The common bile duct is normal in caliber without dilation. Pancreas: Pancreatic head, body, and tail are visualized and appear normal in size and density. No pancreatic masses or calcifications were noted. The pancreatic duct is not dilated. Spleen: Normal in size, shape, and density. No splenic lesions or masses were identified. Appendix: The appendix is normal in size without erwin appendiceal fat stranding or an appendicolith. No evidence of appendiceal abscess or perforation. Kidneys and Adrenal Glands: Both kidneys are normal in size, shape, and position. Cortical thickness is within normal limits. No renal calculi or hydronephrosis. 3 mm left small cortical simple cysts. Adrenal glands are unremarkable with no evidence of masses or hyperplasia. Pelvis: Urinary Bladder: Normal in contour and wall thickness with air loculi likely previous catheterization. No intraluminal lesions were identified. Uterus: Surgically removed. At the hysterectomy operative bed isodensity is seen likely displaced bowel loops. Bilateral ovarian veins are seen relatively prominent measuring 18 mm in the left and 13 mm. Vagina: Normal in contour and wall thickness. Cervix: No evidence of mass or abnormal thickening. Peritoneal and Retroperitoneal Structures: A mild amount of free fluid was identified within the abdomen or pelvis. No lymphadenopathy was noted. Abdominal wall: Anterior lower abdominal wall abnormal densities are likely post-operative edematous changes. Small defect of 2 cm at the umbilical region with foci of air not related to the bowel, with fatty contents hernial sac. Small air loculi in the peritoneum and left lower abdominal wall surgical emphysema of recent post-operative changes. Bulky lower anterior abdominal wall with no hematoma or active bleeding. Bowel: The visualized bowel loops are normal in caliber and appearance. No evidence of bowel obstruction or wall thickening. Bones and Soft Tissues: Pelvic bones and soft tissues are unremarkable. No fractures or abnormal masses were identified. Marginal vertebral endplate osteophytes. IMPRESSION: 1. Right lower lung consolidation with reactive pleural effusion likely infective consolidation suggests clinical co-relation and follow-up. (new) 2. Post-operative changes of non-visualization of the uterus, mild amount of free fluid in the pelvis, and abdominal wall changes of edema and loculi of peritoneal air against the anterior abdominal wall. (Acceptable recent post-operative changes suggest clinical co-relation and follow-up.) (new) 3. At the hysterectomy operative bed isodensity is seen likely displaced bowel loops by the urinary bladder however ultrasound correlation and follow up are advised. 4. Bilateral ovarian veins are seen relatively prominent measuring 18 mm in the left and 13 mm. further doppler assessment/venography can be considered if clinically indicated. 5. Small defect of 2 cm at the umbilical region with foci of air not related to the bowel, with fatty contents hernial sac. Suggest clinical assessment. (new) 6. Hepatomegaly. (unchanged) Electronically signed by Yo rBuce 01-29-2025 6:39 PM
[2025-01-29] MEDS: SODIUM CHLORIDE 0.9% 1,000 ML IV ONE (18:45)
[2025-01-29] MEDS: HYDROmorphone INJ 0.5 MG/0.5 ML SYR IV STA (20:01)
[2025-01-29] MEDS ORDERED: VANCOMYCIN CONSULT ACTIVE PRN (20:19)
[2025-01-29] MEDS: VANCOMYCIN HCL 1,500 MG in SODIUM CHLORIDE 0.9% 500 ML IV ONE (20:32)
[2025-01-29] MEDS: POTASSIUM CHLORIDE / WTR 10 MEQ/100 ML PLCT IV SCH (20:33)
[2025-01-29 20:50] LABS: Magnesium 1.5 mg/dl (1.7-2.4)
--- NOTE | 2025-01-29 20:56 | History & Physical Report ---
Date of Service January 29, 2025 Assessment & Plan (1) hemorrhage: (2) S/P abdominal supracervical subtotal hysterectomy: (3) Hypothyroidism: (4) Hospital acquired PNA: Plan Pt is a 39 yo female with a past medical hx of recent ICU stay for hemorrhagic shock after significant PPH with delivery on 01/24 requiring multiple units of blood and hysterectomy discharged yesterday, hypothyroidism, and GDM who presents to the hospital on 01/29 for fever, cough, admitted for pneumonia. #Hospital-acquired pneumonia - pt with recent ICU stay for hemorrhagic shock, discharged 01/24 but did require vent on 01/25-01/26 - CXR on admission; RLL consolidation, LLL pleural effusion - CTA chest done given recent surg, newly , SOB; pending - will cover with zosyn and vanco IV; MRSA nares pending (if neg can remove vanc) #Recent PPH/hysterectomy - seen on 01/24 for induction of delivery, underwent 01/24, had significant PPH requiring hysterectomy on 01/25 and then ICU stay with administration of multiple units of PRBCs - CT abd noting post-op changes and some indeterminate areas (see report) - consult OBGYN given CT findings - monitor CBC daily - tylenol [place] with dilaudid for breakthrough pain - type and cross with 2 units held #Hypothyroidism - continue home levothyroxine VTE: lovenox Diet: clear (poor appetite, can advance as tolerated) History of Present Illness Chief Complaint: Fever, cough Primary Care Provider: Bruce Martinez, DO Pt is a 39 yo female with a past medical hx of recent ICU stay for hemorrhagic shock after significant PPH with delivery on 01/24 requiring multiple units of blood and hysterectomy discharged yesterday, hypothyroidism, and GDM who presents to the hospital on 01/29 for fever, cough, admitted for pneumonia. Pt states that yesterday when she went home she did not feel great. She states she still had significant abdominal pain but that it was unchanged from her hospital stay post operatively. She states she did note a bit of a cough morning of discharge but it was mild. Since then and into today, she noticed worsening coughing fits with yellow-green sputum, sometimes blood, and chills. She did not take her temperature at home but reports subjective fever and general malaise. Also notes very poor appetite although no nausea or vomiting. She has not had a BM since coming in for her induction 5-6 days ago. She got a dose of dilaudid in the ER and states her pain feels so much better with that dose given and that after that her cough has eased up a bit as well. Allergies Allergy/AdvReac Type Severity Reaction Status Date / Time methylprednisolone AdvReac Severe Anxiety Verified 01/29/25 19:42 [From Medrol] Home Medications Medication Instructions Recorded Confirmed Type blood sugar diagnostic (OneTouch #150 ea 12/28/24 01/29/25 Rx Verio test strips) blood-glucose meter (OneTouch #1 ea 12/28/24 01/29/25 Rx Verio Reflect Meter) lancets 33 gauge (OneTouch Delica #150 ea 12/28/24 01/29/25 Rx Plus Lancet) levothyroxine 88 mcg tablet 88 mcg PO DAILY 01/24/25 01/29/25 History vits no.124-ferrous fum 1 tab PO HS 01/24/25 01/29/25 History 27 mg iron-folic acid 800 mcg tablet ( Vitamin) oxycodone 5 mg tablet 5 mg PO .q4hrs PRN pain #20 tabs 01/29/25 01/29/25 Rx Past Med/Surg History Problem List (Updated 01/29/25 @ 21:36 by Michelle Mendoza DO) Hospital acquired PNA Hypothyroidism S/P abdominal supracervical subtotal hysterectomy Encounter for care and examination after delivery Encounter for postoperative care hemorrhage Metabolic acidosis Hemorrhagic shock Group B streptococcal infection during Migraine without aura Gestational diabetes Encounter for follow-up ultrasound of anatomy Not immune to hepatitis B virus Umbilical hernia Vulvitis Cyst of left ovary during Early stage of Encounter for anatomic survey Hypothyroid in , antepartum Elderly multigravida Subclinical hypothyroidism Medical History Insomnia GERD (gastroesophageal reflux disease) Globus sensation Anxiety Neck pain Rebound headache TMJ (temporomandibular joint disorder) Post-traumatic headache Paresthesia Ataxia GERD (gastroesophageal reflux disease) Migraine Anxiety H/O varicella H/O chlamydia infection History of miscarriage Thyroid disease in Surgical History S/P wisdom tooth extraction S/P dilation and curettage Family History Other Adopted Social History Smoking Status: Never smoker Second Hand Exposure: No; Do You Dip or Chew Tobacco: No; Hx Alcohol Use: No Hx Substance Use: No Preferred Language: Malay Communication Ability: Effective Visual Impairment: No Limitations Hearing Ability: Normal Pilot Fuel 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 Required: No Beliefs That Will Affect Care: None marital status: marital status details: Bridger Sparks (32) [phone] Current Living Situation: Family Current Living Situation Comment: Boyfriend and 3 kids current occupational status: employed 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 Physical Exam Physical Exam: General: Alert and oriented, no acute distress, comfortable appearing but face appears flushed HEENT: Normocephalic, moist oral mucosa, Cardio: Regular rate and rhythm, no murmur, Resp: Lungs clear to auscultation b/l without wheezes or rhonchi but RLL air movement diminished GI: Soft but diffusely tender, bowel sounds active, horizontal surgical scar noted which is well approximated without discharge with superior edge bruising and inferior edge bruising also that appears more reddish and rash-like but is nonitchy Skin: Warm, pink, dry, Results & Data Results & Data Vital Signs (Past 12 Hours) Vital Signs Temp Pulse Pulse Resp BP BP Pulse Ox 01/29/25 20:01 88 24 121/63 95 01/29/25 18:00 81 28 H 119/72 93 01/29/25 17:34 36.7 C 74 24 132/68 97 01/29/25 16:53 88 23 135/75 92 01/29/25 16:29 72 01/29/25 16:05 71 20 122/76 97 01/29/25 15:50 36.5 C 84 18 132/80 95 O2 Del Method 01/29/25 20:01 Room Air 01/29/25 18:00 Room Air 01/29/25 17:34 Room Air 01/29/25 16:53 Room Air 01/29/25 16:29 01/29/25 16:05 Room Air 01/29/25 15:50 Room Air Supervising Physician Co-Signing Physician Notes Attending addendum: I have physically seen this patient, have supervised the medical residents activities, and agree with the H&P unless as otherwise noted. Assessment and Plan: The patient is a 39-year-old female with past medical history including admission from 01/24-01/28/2025, status post abdominal supracervical subtotal hysterectomy, with significant hemorrhaging requiring ICU stay, pressors for support, temporary intubation and mass transfusion blood product protocol replacement. She presents to the emergency department with complaint of fever and cough, had chest x-ray suggesting right lower lobe pneumonia, negative BioFire test, and was then referred for evaluation and treatment to [facility]. #Hospital acquired pneumonia/multiple pulmonary emboli in right lower, middle and upper lobes- Chest x-ray with right lower lobe infiltrate CTA chest revealing PEs as noted Received ceftriaxone 2 g IV and azithromycin 500 mg IV along with 1 L normal saline from the ED Admit on vancomycin IV per pharmacokinetic monitoring, which can be discontinued if MRSA swab negative Zosyn 4.5 g IV every 8 hours DuoNebs every 2 hours as needed Nasal cannula oxygen, titrate to keep pulse ox 92-94% Order lower extremity venous Dopplers Will consult hematology Will consult vascular surgery if significant clot burden in lower extremities, as patient may be better considered for temporary IVC filter Blood pressure and heart rate are acceptable at this time, will therefore hold on any anticoagulation due to recent issues with massive bleeding, and until consults have been performed Status post abdominal supracervical subtotal hysterectomy/ hemorrhage- Consult DIRECTOR OF DIGITAL MARKETING Electrolyte disturbances/hypokalemia/hypomagnesemia- Potassium 3.4 and magnesium 1.5 with IV supplementation Recheck laboratories in a.m. Hypothyroidism- Continue levothyroxine Resident Activity Tracking Resident Involvement: Resident Care Provided Care Provided: Adult Hospital Medicine (1) hemorrhage hemorrhage type: other immediate Qualified Code(s): O72.1 - Other immediate hemorrhage
[2025-01-29] MEDS: OPTIRAY 320 125ml IV ONE (21:06)
[2025-01-29 21:33] LABS: iSTAT Creatinine 0.7 mg/dl (0.6-1.3); iSTAT Hemoglobin 7.1 g/dl (12.0-16.0); iSTAT Ionized Calcium 1.13 mmol/l (1.12-1.32); iSTAT Potassium 3.4 mmol/L (3.3-5.0)
[2025-01-29] MEDS ORDERED: CALCIUM CARBONATE 500 MG CHEWABLE TAB PO PRN (21:37)
[2025-01-29] MEDS ORDERED: SODIUM CHLORIDE 0.9% 100 ML IV PRN (21:41)
--- NOTE | 2025-01-29 22:36 | OB/GYN Consultation ---
Date of Consultation January 29, 2025 Assessment & Plan (1) S/P abdominal supracervical subtotal hysterectomy: (2) Hospital acquired PNA: (3) hemorrhage: Plan I reviewed the CT images and report. Discussed these findings with patient and admitting hospitalist. Agree with suspicion of pneumonia causing her symptoms. Given her stable blood pressure and pulse, hemoglobin 9.6 and normal platelets, do not suspect continued hemorrhage. Also not seeing evidence of hemorrhage or hematoma on imaging. Notation of hysterectomy operative bed isodensity on CT report, suspect this may be related to the use of Tisseel coagulant across all operative sites at the end of the supracervical hysterectomy. Prominent bilateral ovarian veins, suspect this is likely due to recent . However, she does have risk factors for septic pelvic thrombophlebitis given her recent , hysterectomy, and massive transfusion. May need to consider this on the differential if no improvement with pneumonia treatment. Bulky anterior lower abdominal wall likely postoperative changes. She would like to attempt breast-feeding, will obtain breast pump for her and consult. Please contact on-call FITTING ROOM INSPECTOR if any concerns or questions arise. History of Present Illness Reason for Consultation: Postoperative hysterectomy, admission for pneumonia Requesting Physician: Dr Mendoza Attending Physician: Dr Lopez History of Present Illness 39-year-old -0-1-4 who is now postoperative day 4 after supracervical hysterectomy, bilateral salpingectomy, left oophorectomy. She delivered vaginally on 01/24/2025, developed hemorrhage from a suspected cervical laceration. She was moved to the labor and delivery OR, where emergency laparotomy was performed and she was found to have a large right broad ligament hematoma extending to mid bladder and retroperitoneal space of right pelvis, suspected uterine vessel laceration. Supracervical hysterectomy was performed, Tisseel coagulant was placed over all vascular pedicles and pelvic structures. Cystoscopy showed atraumatic bladder. She was then admitted to the ICU for hemorrhagic shock and continued resuscitation, was on mechanical ventilation. Extubated morning of 01/25/25. Moved to unit 01/26/2025. Discharged home 01/28/2025. She then developed subjective fevers at home, felt like her cough was worsening, short of breath difficulty managing pain control and requested an acute office visit today. She was seen by Dr. Aguilar, who advised evaluation in the emergency department. She has had minimal appetite, however is thirsty and tolerating p.o. liquids well. She is ambulating, urinating. No vaginal bleeding. She feels like breastmilk is starting to come in, she would like to breast-feed if possible. States baby is doing well at home. During my visit with her in the emergency department, she felt like she was finally achieving better pain relief with pain medications given to her in the ER. Allergies Allergy/AdvReac Type Severity Reaction Status Date / Time methylprednisolone AdvReac Severe Anxiety Verified 01/29/25 19:42 [From Medrol] Home Medications Medication Instructions Recorded Confirmed Type blood sugar diagnostic (OneTouch #150 ea 12/28/24 01/29/25 Rx Verio test strips) blood-glucose meter (OneTouch #1 ea 12/28/24 01/29/25 Rx Verio Reflect Meter) lancets 33 gauge (OneTouch Delica #150 ea 12/28/24 01/29/25 Rx Plus Lancet) levothyroxine 88 mcg tablet 88 mcg PO DAILY 01/24/25 01/29/25 History vits no.124-ferrous fum 1 tab PO HS 01/24/25 01/29/25 History 27 mg iron-folic acid 800 mcg tablet ( Vitamin) oxycodone 5 mg tablet 5 mg PO .q4hrs PRN pain #20 tabs 01/29/25 01/29/25 Rx Patient History Medical History Insomnia GERD (gastroesophageal reflux disease) Globus sensation Anxiety Neck pain Rebound headache TMJ (temporomandibular joint disorder) Post-traumatic headache Paresthesia Ataxia GERD (gastroesophageal reflux disease) Migraine Anxiety H/O varicella H/O chlamydia infection History of miscarriage Thyroid disease in Surgical History S/P wisdom tooth extraction S/P dilation and curettage Family History Other Adopted Social History Smoking Status: Never smoker Second Hand Exposure: No; Do You Dip or Chew Tobacco: No; Hx Alcohol Use: No Hx Substance Use: No Preferred Language: Tunisian Communication Ability: Effective Visual Impairment: No Limitations Hearing Ability: Normal Voice Intercept Technician Required: No Beliefs That Will Affect Care: None marital status: marital status details: Bridger Sparks (32) [phone] Current Living Situation: Family and Significant Other Current Living Situation Comment: Boyfriend and 3 kids current occupational status: employed 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 Abdomen with appropriate postoperative tenderness. Incision is clean, dry, intact. There is bruising across the incision, with purple bruising in the mons pubis. No [place] sign. No [place] sign. 1+ bilateral lower extremity edema. No calf tenderness. Results & Data Vital Signs (Past 12 Hours) Vital Signs Temp Pulse Pulse Resp BP BP Pulse Ox 01/29/25 22:09 84 27 H 130/67 93 01/29/25 20:44 108 H 01/29/25 20:01 88 24 121/63 95 01/29/25 18:00 81 28 H 119/72 93 01/29/25 17:34 36.7 C 74 24 132/68 97 01/29/25 16:53 88 23 135/75 92 01/29/25 16:29 72 01/29/25 16:05 71 20 122/76 97 01/29/25 15:50 36.5 C 84 18 132/80 95 O2 Del Method 01/29/25 22:09 Room Air 01/29/25 20:44 01/29/25 20:01 Room Air 01/29/25 18:00 Room Air 01/29/25 17:34 Room Air 01/29/25 16:53 Room Air 01/29/25 16:29 01/29/25 16:05 Room Air 01/29/25 15:50 Room Air PG Care Time/CCT Total # of Minutes Spent Total Time Spent with Patient: Total time spent is greater than 50% in coordination of care (as documented) at patient's floor/unit and/or counseling patient: Coding Level of Care Code 63629 IN/OBS CONSULT LVL 3,45M Diagnoses S/P abdominal supracervical subtotal hysterectomy Z90.711 Hospital acquired PNA J18.9; Y95 Other immediate hemorrhage O72.1 hemorrhage type: other immediate (3) hemorrhage hemorrhage type: other immediate Qualified Code(s): O72.1 - Other immediate hemorrhage
[2025-01-30] MEDS ORDERED: ONDANSETRON INJ 2 MG/ML 2 ML VIAL IV PRN (00:11)
[2025-01-30] MEDS ORDERED: ACETAMINOPHEN 1,000 MG/100 ML VIAL IV SCH (00:11)
[2025-01-30] MEDS ORDERED: POLYETHYLENE (MIRALAX) 17 GM PACK PO PRN (00:11)
--- NOTE | 2025-01-30 00:14 | CT Scan Report ---
Exam(s): CTA CHEST IV Amt: 118 cc opti 320 EXAM: CT Angiography Chest With Intravenous Contrast CLINICAL HISTORY: Reason for exam: PE. TECHNIQUE: Axial computed tomographic angiography images of the chest with intravenous contrast. CTDI is 16.62 mGy and DLP is 515.94 mGy-cm. Automated exposure control was utilized for the study. A dose lowering technique was utilized adhering to the principles of ALARA. MIP reconstructed images were created and reviewed. COMPARISON: No relevant prior studies available. FINDINGS: Pulmonary arteries: There are pulmonary emboli noted in the right lower, middle and upper lobes. Aorta: No thoracic aortic aneurysm. Lungs: There are areas of infiltrate/consolidation at the lung bases more pronounced on the right Pleural space: There is a trace left pleural effusion. No pneumothorax. Heart: Heart is enlarged.. The RV to LV ratio is 0.85 Bones/joints: There are some mild degenerative changes in the spine.. Soft tissues: Unremarkable. Lymph nodes: . No enlarged lymph nodes. IMPRESSION: There are pulmonary emboli noted in the right lower, middle and upper lobes. There are areas of infiltrate/consolidation at the lung bases Communications: Call Doctor Pulmonary Embolism Electronically signed by: Aron Rojas MD 01/30/25 00:13 AM
[2025-01-30] MEDS: 4.5GM X1 IV STA (00:20)
[2025-01-30] MEDS: ACETAMINOPHEN 500 MG TAB PO SCH (01:15)
[2025-01-30] MEDS: VANCOMYCIN HCL 1,250 MG in SODIUM CHLORIDE 0.9% 250 ML IV SCH (03:34)
--- NOTE | 2025-01-30 04:07 | Billing Data ---
Date of Service January 30, 2025 Coding Level of Care Code 00460 INT INP/OBS CARE
[2025-01-30] MEDS: MAGNESIUM SULFATE / D5W 1 GM/100 ML BAG IV ONE (05:05)
[2025-01-30] MEDS: LEVOTHYROXINE SODIUM 88 MCG TABLET PO SCH (05:42)
[2025-01-30] MEDS: PIPERACILLIN/TAZOBACTAM 4.5 GM/100 ML BAG IV SCH (05:42)
[2025-01-30 06:19] LABS: Albumin Globulin Ratio 1.2 (0.9-2); Albumin Level 2.7 gm/dl (3.4-5.0); BUN Creatinine Ratio 10.8 (10-20); Bilirubin,Total 0.6 mg/dl (0.2-1.0); Calcium 7.7 mg/dl (8.6-10.3); Creatinine Clr Calc Pharmacy 110.8 ml/min; Globulin 2.3 gm/dl (2.5-4.0); Potassium 3.4 mmol/L (3.5-5.1)
[2025-01-30 06:20] LABS: Basophils # (auto) 0.04 K/uL (0.00-0.20); Basophils % (auto) 0.2 %; Eosinophils # (auto) 0.05 K/uL (0.00-0.50); Eosinophils % (auto) 0.3 %; Hematocrit (blood only) 23.7 % (37.0-47.0); Hemoglobin 7.9 g/dl (12.0-16.0); Immature Granulocytes # (auto) 0.66 K/uL (0.01-0.20); Immature Granulocytes % (auto) 3.7 %; Lymphocytes # (auto) 1.25 K/uL (1.20-3.40); Lymphocytes % (auto) 7.1 %; Mean Corpuscular Hemoglobin 29.2 pg (25.0-34.0); Mean Corpuscular Hgb Conc 33.3 g/dL (32.0-36.0); Mean Corpuscular Volume 87.5 fL (80.0-100.0); Mean Platelet Volume 9.5 fL (9.4-12.4); Monocytes # (auto) 0.66 K/uL (0.11-0.59); Monocytes % (auto) 3.7 %; Neutrophils # (auto) 15.04 K/uL (1.40-6.50); Nucleated RBC # (auto) 0.04 K/uL (0.00-0.12); Nucleated RBC % (auto) 0.2 %; Platelet Count 273 K/uL (130-400); RDW Coefficient of Variation 16.8 % (11.5-14.5); RDW Standard Deviation 51.2 fL (36.4-46.3); Red Blood Count 2.71 M/uL (4.20-5.40)
[2025-01-30 06:46] LABS: Polychromasia 1+
[2025-01-30] MEDS: HYDROmorphone INJ 0.5 MG/0.5 ML SYR IV PRN (07:28)
--- NOTE | 2025-01-30 08:25 | Hospitalist Progress Note ---
Date of Service January 30, 2025 Assessment & Plan (1) hemorrhage: (2) S/P abdominal supracervical subtotal hysterectomy: (3) Hypothyroidism: (4) Hospital acquired PNA: (5) Pulmonary embolism: Plan Pt is a 39 yo female with a past medical hx of recent ICU stay for hemorrhagic shock after significant PPH with delivery on 01/24 requiring multiple units of blood and hysterectomy discharged yesterday, hypothyroidism, and GDM who presents to the hospital on 01/29 for fever, cough, admitted for pneumonia and P\ Pulmonary embolism- Right lower, middle and upper lobes - CTA chest revealing PEs - Vital signs stable, normotensive, non tachycardia - Provoke- recent surgery, , PPH - Nasal cannula as needed, keep pulse ox >92% - Venous duplex- Negative for DVT on bilateral lower extremities - Will start heparin drip at this time, patient hemodynamically stable, hgb stable. Will continue to monitor closely. Low threshold for repeat abdomen CT and holding heparin drip - Monitor H/H and bleeding - Will need anticoagulation for 3 months for provoked PE. Will discussed with patient due to breasfeed #Hospital-acquired pneumonia - pt with recent ICU stay for hemorrhagic shock, discharged 01/24 but did require vent on 01/25-01/26 - CXR on admission; RLL consolidation, LLL pleural effusion - S/p Vancomycin - MRSA nares negative - Continue Zosyn - Blood culture and urine culture pending - Fever- Tylenol q8H - DuoNeb as needed #Recent PPH/hysterectomy - seen on 01/24 for induction of delivery, underwent 01/24, had significant PPH requiring hysterectomy on 01/25 and then ICU stay with administration of multiple units of PRBCs - CT abd noting post-op changes and some indeterminate areas (see report) - consult OBGYN, aprec recommendations. - monitor CBC daily - tylenol [place] with dilaudid for breakthrough pain - type and cross with 2 units held - Blood consent at in chart - H/H at 5 pm #Hypothyroidism - continue home levothyroxine Electrolytes disturbances - hypokalemia/ hypomagnesemia - Replaced as needed - BMP, Mag AM VTE: Ambulation Diet: clear (poor appetite, can advance as tolerated) Admission and Anticipated Discharge Date Admission Date: January 29, 2025 Supervising Physician Co-Signing Physician Notes I personally examined the patient and verified all [place] points of history and exam, discussed case, and agree with decision making with Dr Richard Flores feeling ok pain better controlled, breathing reasonable. extensive discussions on situation/dxs/plans. no bleeding she can see. 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 not severe sepsis/septic shock, MRSA nares negative --> stopping vanco today. appears stable enough that likely CAP coverage w rocephin would suffice but given risks and recent course will continue zosyn for now - but likely as long as continues to do well into tomorrow can consider changing then. (this will allow avoidance of outpt pseudomonal coverage and /tendonopathy risks) recent hemorrhagic shock - no evidence of ongoing bleeding. continued vigilance especially starting heparin, but follow closely otherwise as above late addendum - f/u ~630p - one episode of hematuria but none since. walking around well. feels about the same. pain controlled with meds. still on RA. Hgb reviewed and reviewed with pt. stable - continue current care Subjective Seen this morning. States pain is improved somehow. Denied any major bleeding, states had some spotting this morning. Cough is making the abdominal pain worse. Denied nay SOB, chest pain or palpitation. No conversational dyspnea. States swelling on her bilateral legs had been stable. Denied calf pain. No rashes. She plan to breastfeed. Central Supply Manager will see her today Review of Systems Review of Systems: as per HPI Physical Exam Physical Exam: General: Alert and oriented, no acute distress, comfortable appearing but face appears flushed HEENT: Normocephalic, moist oral mucosa, Cardio: Regular rate and rhythm, no murmur, Resp: Lungs clear to auscultation b/l without wheezes or rhonchi but RLL air movement diminished GI: Soft but diffusely tender, bowel sounds active, horizontal surgical scar noted which is well approximated without discharge with superior edge bruising and inferior edge bruising also that appears more reddish and rash-like but is nonitchy Skin: Warm, pink, dry, Results & Data Results & Data Vital Signs (Past 12 Hours) Vital Signs Temp Pulse Pulse Resp BP Pulse Ox O2 Del Method 01/30/25 07:57 37.8 C H 81 18 112/69 96 Room Air 01/30/25 07:49 71 01/30/25 03:18 37.8 C H 88 18 107/66 94 Room Air 01/30/25 00:30 Room Air 01/30/25 00:30 38.5 C H 108 H 22 139/78 95 Room Air 01/30/25 00:10 114 H 01/29/25 23:28 84 16 134/71 98 Room Air 01/29/25 22:09 84 27 H 130/67 93 Room Air 01/29/25 20:44 108 H Resident Activity Tracking Resident Involvement: Resident Care Provided Care Provided: Adult Hospital Medicine (1) hemorrhage hemorrhage type: other immediate Qualified Code(s): O72.1 - Other immediate hemorrhage
[2025-01-30] MEDS ORDERED: ENOXAPARIN INJ 40 MG/0.4 ML SYR SQ SCH (09:00)
[2025-01-30] MEDS: LACTATED RINGER'S 1,000 ML IV SCH (09:04)
[2025-01-30] MEDS: POTASSIUM CHLORIDE / WTR 10 MEQ/100 ML PLCT IV SCH (09:05)
--- NOTE | 2025-01-30 09:14 | Ultrasound Report ---
BILATERAL LOWER EXTREMITY VENOUS DOPPLER HISTORY: Screening study in a patient with pulmonary emboli PE, assess for DVTs COMPARISON STUDY: CT chest 01/29/2025 FINDINGS: Subcutaneous edema noted bilaterally. There is normal compressibility, flow, and augmentati on within the bilateral lower extremity deep venous systems. IMPRESSION: No DVT within the right or left lower extremity. ACT 112: Negative or not required by law. Electronically signed by: Brian Barfield M.D. 01/30/2025 9:13 AM
[2025-01-30 10:15] LABS: Hematocrit (blood only) 23.5 % (37.0-47.0); Hemoglobin 7.8 g/dl (12.0-16.0)
[2025-01-30 10:34] LABS: INR 0.9 (0.9-1.1); Partial Thromboplastin Ratio 1.1; Partial Thromboplastin Time 30 Seconds (21-31); Prothrombin Time 10.2 Seconds (9.0-12.0)
[2025-01-30 11:11] LABS: Ferritin 184.7 ng/ml (8-388)
[2025-01-30] MEDS: HEPARIN 25000 UNIT/500 ML D5W 25,000 UNITS/500 ML BAG IV SCH (11:52)
[2025-01-30] MEDS: Heparin IV Adult Wt-Based Standard *NO* INITIAL Bolus Protocol IV STA (11:53)
--- NOTE | 2025-01-30 12:18 | Billing Data ---
Date of Service January 30, 2025 Coding Level of Care Code 19249 SUB INP/OBS CARE MIN
--- NOTE | 2025-01-30 12:59 | Communication Note ---
Date of Service: January 30, 2025 Social visit Patient feeling much better, and looking much better than she did in the office with me yesterday. Discussed case with Dr. Tam. They are starting heparin for bilateral PEs as h/h stable and no evidence of bleeding and will monitor closely. Antibiotics for pneumonia being adjusted based on situation and breast feeding. I agree that there is no evidence that the patient is having any internal bleeding at present, but if there is any sign or concern, we are available. Since pateint being managed primarily by hospitalist service and there are no current acute ob issues, we will monitor and please reach out to us if we can assist in any way. Arranging for a pump and consult for the patient. It is very encouraging that her milk is coming in that she does not have Noel syndrome.
--- NOTE | 2025-01-30 17:10 | Oncology Consultation ---
Date of Consultation January 30, 2025 Assessment & Plan (1) Pulmonary embolism: (2) Hospital acquired PNA: Plan -PE provoked by hospitalization, immobilization , Recent and surgery. Agree with therapeutic heparin. Monitor hemoglobin and hematocrit closely-at least every 12 hours. Since she has had hysterectomy, would not expect further bleeding. -Patient unsure if she will be able to breast-feed. If breast-feeding, she can be discharged home on therapeutic Lovenox or warfarin. If she decides not to breast-feed, can be discharged home on a DOAC preferably Eliquis. Would require treatment for 3 to 6 months for provoked PE. -Oral/IV iron supplementation for iron deficiency -Given her young age, could consider referral to hematology for outpatient hypercoagulable workup. Thank you for this consult. Please feel free to call if you have any further questions. History of Present Illness Reason for Consultation: Pulmonary embolism Attending Physician: Klaus Tam DO History of Present Illness 39-year-old female admitted to [facility] with respiratory symptoms. CTA chest on 01/29/2025 revealed pulmonary emboli in the right lower, middle and upper lobes with areas of infiltrate/consolidation at the lung bases. Bilateral lower extremity ultrasound was negative for DVT. Of note, patient was recently discharged home after hospitalization in the ICU for hemorrhagic shock requiring massive transfusion which developed following vaginal delivery of her fourth child on 01/24/2025. She underwent supracervical hysterectomy, bilateral salpingectomy and left oophorectomy.She is currently on IV antibiotics for pneumonia and also on heparin for PE Allergies Allergy/AdvReac Type Severity Reaction Status Date / Time methylprednisolone AdvReac Severe Anxiety Verified 01/29/25 19:42 [From Medrol] Home Medications Medication Instructions Recorded Confirmed Type blood sugar diagnostic ([employer]tek NetworksTouch #150 ea 12/28/24 01/29/25 Rx Verio test strips) blood-glucose meter (OneTouch #1 ea 12/28/24 01/29/25 Rx Verio Reflect Meter) lancets 33 gauge (OneTouch Delica #150 ea 12/28/24 01/29/25 Rx Plus Lancet) levothyroxine 88 mcg tablet 88 mcg PO DAILY 01/24/25 01/29/25 History vits no.124-ferrous fum 1 tab PO HS 01/24/25 01/29/25 History 27 mg iron-folic acid 800 mcg tablet ( Vitamin) oxycodone 5 mg tablet 5 mg PO .q4hrs PRN pain #20 tabs 01/29/25 01/29/25 Rx Patient History Medical History Insomnia GERD (gastroesophageal reflux disease) Globus sensation Anxiety Neck pain Rebound headache TMJ (temporomandibular joint disorder) Post-traumatic headache Paresthesia Ataxia GERD (gastroesophageal reflux disease) Migraine Anxiety H/O varicella H/O chlamydia infection History of miscarriage Thyroid disease in Surgical History S/P wisdom tooth extraction S/P dilation and curettage Family History Other Adopted Social History Smoking Status: Never smoker Second Hand Exposure: No; Do You Dip or Chew Tobacco: No; Hx Alcohol Use: No Hx Substance Use: No Preferred Language: Kyrgyz Communication Ability: Effective Visual Impairment: No Limitations Hearing Ability: Normal Epoxy Fabrication Supervisor Required: No Beliefs That Will Affect Care: None marital status: marital status details: Bridger Sparks (32) [phone] Current Living Situation: Family Current Living Situation Comment: Boyfriend and 3 kids current occupational status: employed 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 [employer] How many Children do You have: 3 Feels Safe at Home: Yes Childhood Exposure to Second-Hand Smoke: No Diet: regular Diet Comment: regular caffeine: Yes during the past year weight has: increased > 10 lbs Dental Care, Regularly: Yes Physical Activity Frequency: Daily Seatbelt Use: always Sunscreen Use: Yes Assistive Devices: None Results & Data Vital Signs (Past 12 Hours) Vital Signs Temp Pulse Pulse Resp BP Pulse Ox O2 Del Method 01/30/25 03:18 37.8 C H 88 18 107/66 94 Room Air 01/30/25 00:30 Room Air 01/30/25 00:30 38.5 C H 108 H 22 139/78 95 Room Air 01/30/25 00:10 114 H 01/29/25 23:28 84 16 134/71 98 Room Air 01/29/25 22:09 84 27 H 130/67 93 Room Air 01/29/25 20:44 108 H 01/29/25 20:01 88 24 121/63 95 Room Air
[2025-01-30 18:04] LABS: ANTI-Xa, UFH(UnfractionatedHep 0.22 IU/ml (0.3-0.7)
[2025-01-31 01:34] LABS: ANTI-Xa, UFH(UnfractionatedHep 0.26 IU/ml (0.3-0.7)
[2025-01-31 08:03] LABS: Basophils # (auto) 0.03 K/uL (0.00-0.20); Basophils % (auto) 0.2 %; Eosinophils # (auto) 0.22 K/uL (0.00-0.50); Eosinophils % (auto) 1.5 %; Hematocrit (blood only) 23.9 % (37.0-47.0); Hemoglobin 7.7 g/dl (12.0-16.0); Immature Granulocytes # (auto) 0.69 K/uL (0.01-0.20); Immature Granulocytes % (auto) 4.7 %; Lymphocytes # (auto) 1.51 K/uL (1.20-3.40); Lymphocytes % (auto) 10.3 %; Mean Corpuscular Hemoglobin 28.5 pg (25.0-34.0); Mean Corpuscular Hgb Conc 32.2 g/dL (32.0-36.0); Mean Corpuscular Volume 88.5 fL (80.0-100.0); Mean Platelet Volume 9.5 fL (9.4-12.4); Monocytes # (auto) 0.91 K/uL (0.11-0.59); Monocytes % (auto) 6.2 %; Neutrophils # (auto) 11.26 K/uL (1.40-6.50); Neutrophils % (auto) 77.1 %; Platelet Count 303 K/uL (130-400); RDW Coefficient of Variation 16.7 % (11.5-14.5); RDW Standard Deviation 51.5 fL (36.4-46.3); White Blood Count 14.62 K/ul (4.8-10.8)
[2025-01-31 08:24] LABS: BUN Creatinine Ratio 12.3 (10-20); Calcium 7.9 mg/dl (8.6-10.3); Potassium 3.5 mmol/L (3.5-5.1)
[2025-01-31 08:31] LABS: Polychromasia 1+
[2025-01-31 08:35] LABS: ANTI-Xa, UFH(UnfractionatedHep 0.32 IU/ml (0.3-0.7)
--- NOTE | 2025-01-31 10:22 | Hospitalist Progress Note ---
Date of Service January 31, 2025 Assessment & Plan (1) hemorrhage: (2) S/P abdominal supracervical subtotal hysterectomy: (3) Hypothyroidism: (4) Hospital acquired PNA: (5) Pulmonary embolism: Plan Pt is a 39 yo female with a past medical hx of recent ICU stay for hemorrhagic shock after significant PPH with delivery on 01/24 requiring multiple units of blood and hysterectomy discharged yesterday, hypothyroidism, and GDM who presents to the hospital on 01/29 for fever, cough, admitted for pneumonia and PE Pulmonary embolism- Right lower, middle and upper lobes - CTA chest revealing PEs - Vital signs stable, normotensive, non tachycardia - Provoke- recent surgery, , PPH - Nasal cannula as needed, keep pulse ox >92% - Venous duplex- Negative for DVT on bilateral lower extremities - s/p heparin drip and transition to lovenox sq - Anticipate d/c tomorrow am - Monitor VSS and signs of bleeding - Will need anticoagulation for 3 months for provoked PE.---> Lovenox 70 sq BID #Hospital-acquired pneumonia - pt with recent ICU stay for hemorrhagic shock, discharged 01/24 but did require vent on 01/25-01/26 - CXR on admission; RLL consolidation, LLL pleural effusion - S/p Vancomycin - MRSA nares negative - s/p Zosyn - Blood culture and urine culture - negative for 24 - Ceftriaxone IV q24 #Recent PPH/hysterectomy - seen on 01/24 for induction of delivery, underwent 01/24, had significant PPH requiring hysterectomy on 01/25 and then ICU stay with administration of multiple units of PRBCs - CT abd noting post-op changes and some indeterminate areas (see report) - consult OBGYN, aprec recommendations. - monitor CBC daily - tylenol [place] with dilaudid for breakthrough pain - type and cross with 2 units held #Hypothyroidism - continue home levothyroxine Electrolytes disturbances - hypokalemia/ hypomagnesemia - Replaced as needed - BMP, Mag AM VTE: Ambulation Diet: clear (poor appetite, can advance as tolerated) Admission and Anticipated Discharge Date Admission Date: January 29, 2025 Supervising Physician Co-Signing Physician Notes I personally examined the patient and verified all [place] points of history and exam, discussed case, and agree with decision making with Dr Richard Flores doing better overall. no significant bleeding. still coughing fits at times but no O2 requirement not really SOB. pain fairly bad but dilauded has helped a good deal when it's bad. other times tylenol has helped. notes overnigth she probably got behind on the pain some vitals noted nad fatigued heent nc at mmm breathing unlabored does have ongoing fairly wet sounding cough though no tachypnea no accessory muscles skin without rashes pallor or icterus labs, diagnostics reviewed PE - nothing c/w active bleeding. have had ongoing discussions with pt about delicate balance of recent hemorrhage but current PE - optimally at this point would anticoagulate for PE -> since no evidence of bleeding - heparin started 01/30 - has done well. nursing -> will anticipate lovenox as med for discharge - > transition to that tonight and follow into tomorrow (with no bleeding on heparin i don't anticipate any changes, but this also allows longer observation on anticoagulation as well as time for pt to get comfortable with SQ injections). very provoked PE - multiple factors, and recovered well - no tachycardia/hypoxia - so anticipate ~3 months total anticoagulation pneumonia/sepsis - have to consider as hospital acquired/ventilator associated pneumonia present on admission - but fortunately behaving much more c/w CAP pathogens than MRSA/pseudomonas. not severe sepsis/septic shock, MRSA nares negative, continued to improve nicely. stopped vanco 01/30. today changing zosyn to ceftriaxone (highly doubt pseudomonal coverage needed). as long as continues to do well, likely home on cefpodoxime abdominal pain - recent major surgery. scheduled tylenol. IV dilauded 0.5mg helps for breakthrough - will give trial to 7.5mg oxycodone PO anticipating that she'll still need some degree of narcotics for a short time at vt. recent hemorrhagic shock - no evidence of ongoing bleeding. continued vigilance especially starting heparin, but follow closely otherwise as above hopefully home tomorrow Subjective Seen this morning. Patient denied any major bleeding, states had some spotting this morning. Feeling better Denied nay SOB, chest pain or palpitation. No conversational dyspnea. Review of Systems Review of Systems: as per HPI Physical Exam Physical Exam: General: Alert and oriented, no acute distress, comfortable appearing but face appears flushed HEENT: Normocephalic, moist oral mucosa, Cardio: Regular rate and rhythm, no murmur, Resp: Lungs clear to auscultation b/l without wheezes or rhonchi but RLL air movement diminished GI: Soft but diffusely tender, bowel sounds active, horizontal surgical scar noted which is well approximated without discharge with superior edge bruising and inferior edge bruising also that appears more reddish and rash-like but is nonitchy Skin: Warm, pink, dry, Results & Data Results & Data Vital Signs (Past 12 Hours) Vital Signs Temp Pulse Resp BP Pulse Ox O2 Del Method 01/31/25 09:27 Room Air 01/31/25 07:55 36.7 C 54 L 18 115/71 97 Room Air 01/31/25 03:27 36.8 C 67 18 114/73 98 Room Air 01/30/25 22:59 36.7 C 66 17 112/74 99 Room Air Resident Activity Tracking Resident Involvement: Resident Care Provided Care Provided: Adult Hospital Medicine (1) hemorrhage hemorrhage type: other immediate Qualified Code(s): O72.1 - Other immediate hemorrhage
[2025-01-31] MEDS ORDERED: ENOXAPARIN 1 MG/KG SC SCH (16:00)
--- NOTE | 2025-01-31 16:39 | Billing Data ---
Date of Service January 31, 2025 Coding Level of Care Code 86056 SUB INP/OBS CARE MIN
[2025-01-31] MEDS: cefTRIAXone SODIUM 1,000 MG/50 ML BAG IV SCH (17:40)
[2025-01-31] MEDS: ENOXAPARIN 80 MG/0.8 ML SYR SQ SCH (17:49)
[2025-01-31] MEDS: diphenhydrAMINE Capsule 25 MG CAP PO ONE (21:40)
[2025-01-31 22:45] VITALS: RESP 18
--- NOTE | 2025-02-01 06:48 | Discharge Summary ---
Date of Service February 01, 2025 Admission HPI Per Admitting Provider Pt is a 39 yo female with a past medical hx of recent ICU stay for hemorrhagic shock after significant PPH with delivery on 01/24 requiring multiple units of blood and hysterectomy discharged yesterday, hypothyroidism, and GDM who presents to the hospital on 01/29 for fever, cough, admitted for pneumonia. Pt states that yesterday when she went home she did not feel great. She states she still had significant abdominal pain but that it was unchanged from her hospital stay post operatively. She states she did note a bit of a cough morning of discharge but it was mild. Since then and into today, she noticed worsening coughing fits with yellow-green sputum, sometimes blood, and chills. She did not take her temperature at home but reports subjective fever and general malaise. Also notes very poor appetite although no nausea or vomiting. She has not had a BM since coming in for her induction 5-6 days ago. She got a dose of dilaudid in the ER and states her pain feels so much better with that dose given and that after that her cough has eased up a bit as well. Principal Diagnosis Pulmonary emboslism Discharge Exam General: Alert and oriented, no acute distress, comfortable appearing but face appears flushed HEENT: Normocephalic, moist oral mucosa, Cardio: Regular rate and rhythm, no murmur, Resp: Lungs clear to auscultation b/l without wheezes or rhonchi but RLL air movement diminished GI: Soft but diffusely tender, bowel sounds active, horizontal surgical scar noted which is well approximated without discharge with superior edge bruising and inferior edge bruising also that appears more reddish and rash-like but is nonitchy Skin: Warm, pink, dry, Discharge Data Allergies Allergy/AdvReac Type Severity Reaction Status Date / Time methylprednisolone AdvReac Severe Anxiety Verified 01/29/25 19:42 [From Medrol] Consultations 01/29/25 19:21 ED Decision to Admit Stat 01/29/25 21:02 Consult Gynecology Routine Ordered Studies 01/29/25 16:04 CT abd pelvis IV con only Stat 01/29/25 20:38 CT angio chest PE protocol Stat 01/30/25 00:29 US venous duplex leg [US venous doppler LE BI] Stat Hospital Course (1) hemorrhage: (2) S/P abdominal supracervical subtotal hysterectomy: (3) Hypothyroidism: (4) Hospital acquired PNA: (5) Pulmonary embolism: Plan Pt is a 39 yo female with a past medical hx of recent ICU stay for hemorrhagic shock after significant PPH with delivery on 01/24 requiring multiple units of blood and hysterectomy discharged yesterday, hypothyroidism, and GDM who presents to the hospital on 01/29 for fever, cough, admitted for pneumonia and PE Pulmonary embolism- Right lower, middle and upper lobes - CTA chest revealing PEs - Vital signs stable, normotensive, non tachycardia - Provoke- recent surgery, , PPH - Venous duplex- Negative for DVT on bilateral lower extremities - s/p heparin drip and transition to lovenox sq - Recommend anticoagulation for 3 months for provoked PE.---> Lovenox 70 sq BID for 3 months #Hospital-acquired pneumonia - pt with recent ICU stay for hemorrhagic shock, discharged 01/24 but did require vent on 01/25-01/26 - CXR on admission; RLL consolidation, LLL pleural effusion - S/p Vancomycin - MRSA nares negative - Blood culture and urine culture - negative for 48h - Sent home with Cefpodoxime 200 mg BID for 4 more days, total of 7 days #Recent PPH/hysterectomy - seen on 01/24 for induction of delivery, underwent 01/24, had significant PPH requiring hysterectomy on 01/25 and then ICU stay with administration of multiple units of PRBCs - CT abd noting post-op changes and some indeterminate areas (see report) -HGB Stable at 8.4 #Hypothyroidism - continue home levothyroxine Total Time Total Time Spent Total Time Spent (In Minutes): see attending attestation Discharge Plan Discharge Items Patient Disposition: Home - Self-Care Reason For Visit: PNEUMONIA Discharge Diagnosis: Pulmonary pneumonia Activity: Per Instructions section Non-emergency contact: Primary Care Provider and [employer] Operator Call non-emergency contact if: you have any medication questions, your symptoms worsen, your pain is not controlled and your pain is worsening Follow-up/Referrals: Bruce Martinez, [Primary Care Provider] - 02/09/25 9:20 am (Hospital follow up scheduled February 09 at 9:[address] Martinez) Diet: Regular Addtl Attending Provider Instructions: You were admitted in the hospital due to Pulmonary embolism and pneumonia - Having major surgery, recent and multiple transfusions put you in risk of having blot clots. Because we know what provoke this you only need treatment for 3 months. The treatment is anticoagulation (blood thinner). We will sent to your pharmacy: - Lovenox 70 mg subcutaneous twice a day - For your pneumonia: We will sent to you pharmacy : Cefpodoxime 200 mg twice a day for 4 more days, for a total of 7 days - Will sent Manpreet dennys for cough, take as needed Recommended follow up with your PCP within a a week Pending Studies at Discharge: No Stand-Alone Forms: My [facility], Smoking Cessation Medications and DC Order Prescriptions: New enoxaparin [Lovenox] 80 mg/0.8 mL Syringe 70 mg subcut Q12H 90 Days Qty: 126 0RF cefpodoxime 200 mg tablet 200 mg PO BID 4 Days Qty: 8 0RF Rx Instructions: must administer with a meal/food oxycodone 5 mg tablet 5 mg PO Q6H PRN (Reason: pain) Qty: 10 0RF Rx Instructions: 1 po q6h prn severe pain, 2 po q6hr prn breakthrough pain benzonatate 100 mg Capsule 100 mg PO Q8 PRN (Reason: cough) Qty: 20 0RF Continued (DME) OneTouch Verio test strips Strip See Rx Instructions .MEDSUPPLY Qty: 150 0RF Rx Instructions: check blood sugars 4 times a day (DME) blood-glucose meter [OneTouch Verio Reflect Meter] Misc See Rx Instructions miscellaneous .MEDSUPPLY Qty: 1 0RF Rx Instructions: As directed (DME) lancets [OneTouch Delica Plus Lancet] 33 gauge misc See Rx Instructions .MEDSUPPLY Qty: 150 0RF Rx Instructions: As directed check blood sugars 4 times a day levothyroxine 88 mcg Tablet 88 mcg PO DAILY Vitamin 27 mg iron- 800 mcg Tablet 1 tab PO HS Qty: 30 0RF Discontinued oxycodone 5 mg tablet 5 mg PO .q4hrs PRN (Reason: pain) Qty: 20 0RF Discharge Orders: Discharge Order (Routine); Ordered 02/01/25 Ordered By: Deann Flores Admission Data Admit Date/Time: 01/29/25 22:14 Attending Provider: Klaus Tam Admit Provider: Michelle Mendoza Primary Care Provider: Bruce Martinez Other Providers: Toño Sinclair; Olga Guzman Other Interventions: Discharge Summary Assessment (RN) Last Done: 02/01/25 09:50 Supervising Physician Co-Signing Physician Notes I personally examined the patient and verified all [place] points of history and exam, discussed case, and agree with decision making with Dr Richard Flores feels better overall; feels up to going home. extensive discussions dx by dx in terms of meaning/plan/next steps/etc - answered all quetsions to the best of my ability and to her/S.O.'s satisfaction vitals noted nad fatigued heent nc at mmm breathing unlabored does have ongoing fairly wet sounding cough though no tachypnea no accessory muscles skin without rashes pallor or icterus labs, diagnostics reviewed PE - nothing c/w active bleeding x several days on anticoagulation. have had ongoing discussions with pt about delicate balance of recent hemorrhage but current PE - optimally at this point would anticoagulate for PE -> since no evidence of bleeding - safe for home on lovenox - feeling comfortable with home injections. very provoked PE - multiple factors, and recovered well - no tachycardia/hypoxia - so anticipate ~3 months total anticoagulation pneumonia/sepsis - have to consider as hospital acquired/ventilator associated pneumonia present on admission - but fortunately behaving much more c/w CAP pathogens than MRSA/pseudomonas. not severe sepsis/septic shock, MRSA nares negative, continued to improve nicely. stopped vanco 01/30. changed zosyn to ceftriaxone 01/31(highly doubt pseudomonal coverage needed). continues to do well - > home on cefpodoxime abdominal pain - recent major surgery. scheduled tylenol. oxycodone prn breakthrough pain recent hemorrhagic shock - no evidence of ongoing bleeding. PO Fe; outpt f/u on CBC to ensure Hgb rises appropriately over time (ie that she shows good hematopoesis and doesn't show a need for IV iron, etc) otherwise as above safe/stable for home PCP/Rig Manager next week, then ongoing f/u
[2025-02-01 07:20] VITALS: TEMP 97.9; O2SAT 96
[2025-02-01] MEDS: oxyCODONE HCL IR 5 MG TAB (IMMEDIATE RELEASE) PO PRN (08:08)
[2025-02-01] MEDS: BENZONATATE 100 MG CAPSULE PO PRN (08:09)
[2025-02-01 08:20] LABS: Basophils # (auto) 0.04 K/uL (0.00-0.20); Basophils % (auto) 0.3 %; Eosinophils # (auto) 0.24 K/uL (0.00-0.50); Eosinophils % (auto) 2.1 %; Hematocrit (blood only) 25.6 % (37.0-47.0); Hemoglobin 8.4 g/dl (12.0-16.0); Immature Granulocytes # (auto) 0.57 K/uL (0.01-0.20); Immature Granulocytes % (auto) 4.9 %; Lymphocytes # (auto) 1.79 K/uL (1.20-3.40); Lymphocytes % (auto) 15.5 %; Mean Corpuscular Hemoglobin 29.2 pg (25.0-34.0); Mean Corpuscular Hgb Conc 32.8 g/dL (32.0-36.0); Mean Corpuscular Volume 88.9 fL (80.0-100.0); Mean Platelet Volume 9.3 fL (9.4-12.4); Monocytes # (auto) 0.86 K/uL (0.11-0.59); Monocytes % (auto) 7.4 %; Neutrophils # (auto) 8.06 K/uL (1.40-6.50); Neutrophils % (auto) 69.8 %; Platelet Count 452 K/uL (130-400); RDW Coefficient of Variation 16.4 % (11.5-14.5); RDW Standard Deviation 52.2 fL (36.4-46.3); Red Blood Count 2.88 M/uL (4.20-5.40); White Blood Count 11.56 K/ul (4.8-10.8)
[2025-02-01 08:38] LABS: Creatinine Clr Calc Pharmacy 116.4 ml/min
[2025-02-01 11:18] VITALS: BP 103/65; PULSE 62
--- NOTE | 2025-02-01 12:54 | Billing Data ---
Date of Service February 01, 2025 Coding Level of Care Code 18791 INP/OBS DISCH >30 MIN
== END 2025-02-01 13:26 | disposition home or self-care (01) | DRG 205 ==
LOC: ED 15:48 → 2S 22:14 → SUATTDRO 22:14 → 2S 23:51